=== PATIENT | female | born 1930 | race Caucasian/White ===

== ENCOUNTER 2016-09-08 00:09 | Emergency (ER) | payer OTHER ==
[2016-09-08 00:21] VITALS: BP 124/63; BMI 32.2
--- NOTE | 2016-09-08 00:39 | RAD ---
EXAM: Left ankle x-ray INDICATION: Pain COMPARISION: No priors for comparison TECHNIQUE: AP, lateral, and oblique, three views FINDINGS: No acute fracture or dislocation. There is diffuse osteopenia. There is no evidence of an intraosseo us lesion. The joint spaces are preserved. No joint effusion is identified. The surrounding soft tis sues appear diffusely edematous. There is no evidence of a radiopaque foreign body. IMPRESSION: Advanced diffuse osteopenia and soft tissue swelling. Reported By:
--- NOTE | 2016-09-08 00:40 | DR.GENAD ---
HPI - PCP Primary Care Physician: NELLY - Complaint/Symptoms Chief Complaint:: LEFT ANKLE PAIN AFTER FALL FROM CHAIR OVER ON SITTING ON COUCH - Nurses notes reviewed Nurses Notes Review: Yes - Source History Provided: Patient, EMS - Mode of Arrival Mode of Arrival: Stretcher - Timing Onset of Chief Complaint: 09/07/16 Came on: Suddenly - Duration Duration: Constant How lon Duration: Minutes - Location Location: left ankle - Severity Severity: Moderate - Modifying Factors Worsens:: movement PMH - PMH Past Medical History: Yes Past Medical History: Arthritis, CHF, CVA, GERD, Hypertension Past Surgical History: Yes Surgical History: Abdominal Surgery, Cholecystectomy, Hysterectomy, Joint Replacement, Other - Family History History of Family Medical Conditions: Yes Family Medical History: Cancer, Heart Failure, Hypertension - Social History Does patient currently use any type of tobacco product: No Have you used tobacco products in the last 12 months: No Type of Tobacco Use: None Does any household member use tobacco: No Alcohol Use: None Do you use any recreational Drugs:: No Lives With: Spouse Lives Where: Home - infectious screening Have you traveled outside the country in the last 6 months?: No Isolation: Standard ROS - Review of Systems Constitutional: No Symptoms Reported Eyes: No Symptoms Reported ENTM: No Symptoms Reported Respiratoy: No Symptoms Reported Cardiovascular: No Symptoms Reported Gastrointestinal/Abdominal: No Symptoms Reported Genitourinary: No Symptoms Reported Neurological: No Symptoms Reported Musculoskeletal: Ankle (left ankle pain) Integumentary: No Symptoms Reported Hematologic/Lymphatic: No Symptoms Reported Endocrine: No Symptoms Reported Psychiatric: Depression PE - Vital Signs Vitals: Temperature 97.8 F Pulse Rate 71 Respiratory Rate 20 Blood Pressure [Right Arm] 125/60 Blood Pressure [Left Arm] 111/67 Blood Pressure 124/63 O2 Sat by Pulse Oximetry 98 - General Limitations: No Limitations General Appearance: Alert, In No Apparent Distress - Head Head Exam: Normal Inspection - Eyes Eye exam: Normal Appearance, EOMI. negative: Scleral Icterus, Conjunctival Injection - ENT External Ear Exam: Normal External Inspection - Neck Neck Exam: Normal Inspection, Full ROM, Trachea Midline - Respiratory Respiratory Exam: negative: Accessory Muscle Use, Respiratory Distress - Abdominal Exam Abdominal Exam: Other (obese) - Extremities Extremities Exam: Tenderness (left ankle), Edema (left leg chronic). negative: Normal Inspection - Neurologic Neurological Exam: Alert, Oriented X3, CN II-XII Intact - Psychiatric Psychiatric Exam: Depressed - Skin Skin Exam: Intact, Normal Color ROR - XRAY XRAY Interpreted by: Self XRAY Findings: Left ankle: no fx - Diagnosis Discharge Problem: Sprain of ankle, left Qualifiers: Encounter type: initial encounter Involved ligament of ankle: unspecified ligament Qualified Code(s): S93.402A - Sprain of unspecified ligament of left ankle, initial encounter - Discharge Plan Condition: Stable Prescriptions: Ibuprofen [Motrin Tab 800 mg] 800 mg PO Q8H PRN #30 tab PRN Reason: Pain/Inflammation - Follow ups/Referrals Follow ups/Referrals: NFD,None [Primary Care Provider] - 3 days - Instructions
[2016-09-08] MEDS ORDERED: NORCO 5/325 MG TAB PO ONE (00:43)
[2016-09-08] MEDS ORDERED: NORCO 5/325 MG TAB ONE (00:48)
== END 2016-09-08 00:59 | disposition home or self-care (01) ==
LOC: ER 00:09
DX: S93.492A Sprain of other ligament of left ankle, initial encounter (principal); Y33.XXXA Other specified events, undetermined intent, initial encounter; Y92.89 Other specified places as the place of occurrence of the external cause
CPT/HCPCS: 29540; 73610; 99282; 99283

== ENCOUNTER → 2016-09-28 | Outpatient (CLI) | payer OTHER ==
[2016-09-08 00:21] VITALS: BP 124/63
--- NOTE | 2016-09-28 11:32 | VAS ---
HISTORY: Bilateral lower extremity edema Study: Bilateral lower extremity venous Doppler Comparison: None TECHNIQUE: Multiple trammell scale and color flow Doppler images of the deep venous system were obtaine d of the right and left lower extremity. FINDINGS: The deep venous system of the right and left lower extremities were evaluated from the level of the common femoral vein through the popliteal vein. Normal color flow and augmentation can be observed. In addition, normal compression is seen throughout the deep venous system. IMPRESSION: 1. Negative for DVT. Reported By:
== END ==
LOC: RAD 09:55
PROVIDERS: ATTEND Internal Medicine
DX: R60.1 Generalized edema (principal); M79.604 Pain in right leg; M79.605 Pain in left leg
CPT/HCPCS: 93970

== ENCOUNTER 2016-10-15 11:33 | Inpatient (IN) | payer OTHER ==
[2016-10-15] MEDS ORDERED: PHARMACY CONSULT - DOSE _____ XX SCH (12:30)
[2016-10-15 13:16] LABS: BASOPHILS # (AUTO) 0.1 X10^3/uL (0.0-0.1); EOSINOPHILS # (AUTO) 0.1 x10^3/uL (0.0-0.2)
[2016-10-15 13:19] LABS: ALANINE AMINOTRANSFERASE 17 Units/L (12-78); ALBUMIN 3.3 g/dL (3.4-5.0); ALKALINE PHOSPHATASE 91 Units/L (46-116); ASPARTATE AMINO TRANSFERASE 16 Units/L (15-37); BLOOD UREA NITROGEN 18 mg/dL (7-18); CALCIUM 8.5 mg/dL (8.5-10.1); CARBON DIOXIDE 28.1 mmol/L (21-32); CHLORIDE 99 mmol/L (98-107); COR CA(FOR HYPOALB) 9.1 mg/dL (8.5-10.1); CREATININE 0.85 mg/dL (0.55-1.02); GLUCOSE 97 mg/dL (65-99); SODIUM 136 mmol/L (136-145); TOTAL PROTEIN 7.3 g/dL (6.4-8.2); eGFR BLACK RACES > 60 (>60); eGFR NON BLACK RACES > 60 (>60)
[2016-10-15 14:19] LABS: BASOPHILS % (AUTO) 0.6 % (0.2-1.0); EOSINOPHILS % (AUTO) 0.8 % (0.9-2.9); HEMATOCRIT 35.5 % (36.0-47.0); HEMOGLOBIN 11.9 g/dL (12.0-16.0); LYMPHOCYTES # (AUTO) 2.2 X10^3/uL (1.3-2.9); LYMPHOCYTES % (AUTO) 17.9 % (21.0-51.0); MEAN CORPUSCULAR HEMOGLOBIN 31.3 pg (27.0-34.0); MEAN CORPUSCULAR HGB CONC 33.5 g/dL (33.0-35.0); MEAN CORPUSCULAR VOLUME 93.3 fL (80.0-100.0); MONOCYTES # (AUTO) 1.1 x10^3/uL (0.3-0.8); MONOCYTES % (AUTO) 8.8 % (0.0-13.0); NEUTROPHILS # (AUTO) 8.9 x10^3/uL (2.2-4.8); NEUTROPHILS % (AUTO) 71.9 % (42.0-75.0); PLATELET COUNT 139 X10^3/uL (150.0-450.0); RED CELL DISTRIBUTION WIDTH 12.3 % (11.6-16.5); WHITE BLOOD COUNT 12.4 X10^3/uL (3.6-10.0)
[2016-10-15 14:22] LABS: PLATELET MORPHOLOGY COMMENT NORMAL (NORMAL)
[2016-10-15] MEDS ORDERED: FIORICET TAB PO SCH (15:00)
[2016-10-15 15:08] VITALS: BMI 29.1
[2016-10-15] MEDS: NS 1000 ML 1,000 ML IV SCH (15:21)
[2016-10-15] MEDS: VANCOMYCIN 1 GM PREMIX (ADDVANTAGE) 250 ML IV SCH (15:21)
[2016-10-15] MEDS ORDERED: DILAUDID PO ONE (20:38)
--- NOTE | 2016-10-15 20:40 | DR.UPDATE ---
H&P Update History and Physical Update: WAS SEEN IN OUR OFFICE TODAY. A H&P WAS COMPLETED PRIOR TO ADMISSION. PATIENT HAS BEEN SEEN AND EXAMINED WITH NO CHANGES NOTED. Changes noted: NO Yes with the following:
[2016-10-15] MEDS: DILAUDID PO PRN (20:44)
[2016-10-15] MEDS ORDERED: ROBITUSSIN DM PO PRN (22:08)
[2016-10-15] MEDS: ROBITUSSIN DM PO PRN (23:05)
[2016-10-16] MEDS ORDERED: FIORICET TAB PO ONE (00:46)
[2016-10-16] MEDS: NS 1000 ML 1,000 ML IV SCH (01:35)
[2016-10-16] MEDS ORDERED: DILAUDID PO ONE ×4 (02:43→20:33)
[2016-10-16] MEDS: DILAUDID PO PRN ×2 (02:44→09:14)
[2016-10-16 06:20] LABS: BASOPHILS % (AUTO) 0.5 % (0.2-1.0); EOSINOPHILS # (AUTO) 0.1 x10^3/uL (0.0-0.2); EOSINOPHILS % (AUTO) 0.9 % (0.9-2.9); HEMATOCRIT 29.7 % (36.0-47.0); HEMOGLOBIN 10.3 g/dL (12.0-16.0); LYMPHOCYTES # (AUTO) 1.9 X10^3/uL (1.3-2.9); LYMPHOCYTES % (AUTO) 20.5 % (21.0-51.0); MEAN CORPUSCULAR HEMOGLOBIN 31.8 pg (27.0-34.0); MEAN CORPUSCULAR HGB CONC 34.7 g/dL (33.0-35.0); MEAN CORPUSCULAR VOLUME 91.7 fL (80.0-100.0); MEAN PLATELET VOLUME 8.8 fL (7.4-11.0); MONOCYTES # (AUTO) 0.8 x10^3/uL (0.3-0.8); MONOCYTES % (AUTO) 9.1 % (0.0-13.0); NEUTROPHILS # (AUTO) 6.3 x10^3/uL (2.2-4.8); PLATELET COUNT 179 X10^3/uL (150.0-450.0); RED BLOOD COUNT 3.24 X10^6/uL (3.5-5.4); RED CELL DISTRIBUTION WIDTH 12.3 % (11.6-16.5); WHITE BLOOD COUNT 9.2 X10^3/uL (3.6-10.0)
[2016-10-16 06:25] LABS: ALANINE AMINOTRANSFERASE 14 Units/L (12-78); ALBUMIN 2.6 g/dL (3.4-5.0); ALKALINE PHOSPHATASE 77 Units/L (46-116); ASPARTATE AMINO TRANSFERASE 14 Units/L (15-37); BLOOD UREA NITROGEN 13 mg/dL (7-18); CALCIUM 7.9 mg/dL (8.5-10.1); CARBON DIOXIDE 25.8 mmol/L (21-32); CHLORIDE 100 mmol/L (98-107); COR NA(FOR HYPERGLY) 133 mmol/L (136-145); CREATININE 0.59 mg/dL (0.55-1.02); GLUCOSE 114 mg/dL (65-99); SODIUM 133 mmol/L (136-145); TOTAL PROTEIN 6.1 g/dL (6.4-8.2); eGFR BLACK RACES > 60 (>60); eGFR NON BLACK RACES > 60 (>60)
[2016-10-16] MEDS: VANCOMYCIN 1 GM PREMIX (ADDVANTAGE) 250 ML IV SCH ×2 (09:14→20:47)
[2016-10-16] MEDS ORDERED: PATIENT'S HOME MEDICATION (Omeprazole [Omeprazole] 40 MG) PO SCH (09:15)
[2016-10-16] MEDS ORDERED: PATIENT'S HOME MEDICATION (Benazepril Hcl [Lotensin] 20 MG) PO SCH (09:15)
[2016-10-16] MEDS ORDERED: PATIENT'S HOME MEDICATION (Potassium Chloride [Klor-Con 10] 10 MEQ) PO SCH (09:15)
[2016-10-16] MEDS ORDERED: [UNRECOGNIZED DRUG - OTHER] PO SCH (09:30)
[2016-10-16] MEDS ORDERED: ACETAMINOPHEN PO SCH (09:30)
[2016-10-16] MEDS ORDERED: BUTALBITAL PO SCH (09:30)
[2016-10-16] MEDS ORDERED: [UNRECOGNIZED DRUG - REMARK] PO SCH (09:30)
[2016-10-16] MEDS ORDERED: NORVASC TAB 2.5 MG ONE (11:21)
[2016-10-16] MEDS: MICRO K EXTEN CAP 10 MEQ PO SCH ×2 (11:27→20:49)
[2016-10-16] MEDS: LOTENSIN TAB 10 MG PO SCH (11:27)
[2016-10-16] MEDS: LASIX PO SCH (11:27)
[2016-10-16] MEDS: TOPROL XL PO SCH ×2 (11:28→20:50)
[2016-10-16] MEDS: NORVASC TAB 2.5 MG PO SCH (11:28)
[2016-10-16] MEDS: PriLOSEC PO SCH (11:30)
[2016-10-16] MEDS: REGLAN TAB 10 MG PO SCH ×4 (11:30→20:50)
[2016-10-16] MEDS: FIORICET TAB PO SCH ×3 (11:33→21:01)
[2016-10-16] MEDS: VOLTAREN 1 % GEL MULTI DOSE TUBE TOP SCH ×3 (12:19→21:01)
[2016-10-16] MEDS: DILAUDID PO SCH ×3 (12:19→21:01)
[2016-10-16] MEDS: ROBITUSSIN DM PO PRN (20:49)
[2016-10-16] MEDS: ANTIVERT TAB 25 MG PO SCH (20:50)
[2016-10-17] MEDS ORDERED: DILAUDID PO ONE ×5 (04:11→21:31)
[2016-10-17] MEDS: FIORICET TAB PO SCH ×5 (04:14→21:23)
[2016-10-17] MEDS: DILAUDID PO SCH ×5 (04:14→21:32)
[2016-10-17] MEDS: NS 1000 ML 1,000 ML IV SCH ×2 (04:15→17:00)
[2016-10-17 05:30] LABS: BASOPHILS % (AUTO) 0.5 % (0.2-1.0); EOSINOPHILS # (AUTO) 0.1 x10^3/uL (0.0-0.2); EOSINOPHILS % (AUTO) 1.7 % (0.9-2.9); HEMATOCRIT 31.3 % (36.0-47.0); HEMOGLOBIN 10.7 g/dL (12.0-16.0); LYMPHOCYTES # (AUTO) 1.9 X10^3/uL (1.3-2.9); LYMPHOCYTES % (AUTO) 24.2 % (21.0-51.0); MEAN CORPUSCULAR HEMOGLOBIN 31.8 pg (27.0-34.0); MEAN CORPUSCULAR HGB CONC 34.3 g/dL (33.0-35.0); MEAN CORPUSCULAR VOLUME 92.6 fL (80.0-100.0); MEAN PLATELET VOLUME 8.1 fL (7.4-11.0); MONOCYTES # (AUTO) 0.8 x10^3/uL (0.3-0.8); MONOCYTES % (AUTO) 10.1 % (0.0-13.0); NEUTROPHILS # (AUTO) 5.1 x10^3/uL (2.2-4.8); NEUTROPHILS % (AUTO) 63.5 % (42.0-75.0); PLATELET COUNT 186 X10^3/uL (150.0-450.0); RED BLOOD COUNT 3.38 X10^6/uL (3.5-5.4); RED CELL DISTRIBUTION WIDTH 12.4 % (11.6-16.5)
[2016-10-17 05:31] LABS: ALANINE AMINOTRANSFERASE 13 Units/L (12-78); ALBUMIN 2.6 g/dL (3.4-5.0); ALKALINE PHOSPHATASE 71 Units/L (46-116); ASPARTATE AMINO TRANSFERASE 13 Units/L (15-37); BLOOD UREA NITROGEN 10 mg/dL (7-18); CALCIUM 7.9 mg/dL (8.5-10.1); CARBON DIOXIDE 26.1 mmol/L (21-32); CHLORIDE 103 mmol/L (98-107); CREATININE 0.72 mg/dL (0.55-1.02); GLUCOSE 92 mg/dL (65-99); SODIUM 136 mmol/L (136-145); TOTAL PROTEIN 6.2 g/dL (6.4-8.2); eGFR BLACK RACES > 60 (>60); eGFR NON BLACK RACES > 60 (>60)
[2016-10-17] MEDS: VOLTAREN 1 % GEL MULTI DOSE TUBE TOP SCH ×3 (05:40→21:27)
[2016-10-17] MEDS ORDERED: NORVASC TAB 2.5 MG ONE (09:45)
[2016-10-17] MEDS: LASIX PO SCH (10:02)
[2016-10-17] MEDS: LOTENSIN TAB 10 MG PO SCH (10:02)
[2016-10-17] MEDS: MICRO K EXTEN CAP 10 MEQ PO SCH ×2 (10:02→21:24)
[2016-10-17] MEDS: PriLOSEC PO SCH (10:02)
[2016-10-17] MEDS: NORVASC TAB 2.5 MG PO SCH (10:03)
[2016-10-17] MEDS: REGLAN TAB 10 MG PO SCH ×4 (10:03→21:24)
[2016-10-17] MEDS: VANCOMYCIN 1 GM PREMIX (ADDVANTAGE) 250 ML IV SCH ×2 (10:03→21:22)
[2016-10-17] MEDS: TOPROL XL PO SCH ×2 (10:03→21:22)
[2016-10-17 10:29] LABS: CREATININE 0.83 mg/dL (0.55-1.02); VANCOMYCIN,TROUGH 15.5 ug/mL (15-20)
[2016-10-17] MEDS: ANTIVERT TAB 25 MG PO SCH (21:24)
[2016-10-18] MEDS ORDERED: DILAUDID PO ONE ×4 (02:13→22:19)
[2016-10-18] MEDS: DILAUDID PO SCH ×4 (03:14→22:22)
[2016-10-18] MEDS: FIORICET TAB PO SCH ×4 (03:15→22:06)
[2016-10-18 05:09] LABS: BASOPHILS % (AUTO) 0.6 % (0.2-1.0); EOSINOPHILS # (AUTO) 0.2 x10^3/uL (0.0-0.2); EOSINOPHILS % (AUTO) 2.7 % (0.9-2.9); HEMATOCRIT 31.6 % (36.0-47.0); HEMOGLOBIN 10.7 g/dL (12.0-16.0); LYMPHOCYTES # (AUTO) 2.2 X10^3/uL (1.3-2.9); LYMPHOCYTES % (AUTO) 28.4 % (21.0-51.0); MEAN CORPUSCULAR HEMOGLOBIN 31.7 pg (27.0-34.0); MEAN CORPUSCULAR HGB CONC 33.8 g/dL (33.0-35.0); MEAN CORPUSCULAR VOLUME 93.7 fL (80.0-100.0); MEAN PLATELET VOLUME 8.4 fL (7.4-11.0); MONOCYTES # (AUTO) 0.9 x10^3/uL (0.3-0.8); MONOCYTES % (AUTO) 11.6 % (0.0-13.0); NEUTROPHILS # (AUTO) 4.4 x10^3/uL (2.2-4.8); NEUTROPHILS % (AUTO) 56.7 % (42.0-75.0); PLATELET COUNT 197 X10^3/uL (150.0-450.0); RED BLOOD COUNT 3.37 X10^6/uL (3.5-5.4); RED CELL DISTRIBUTION WIDTH 12.2 % (11.6-16.5); WHITE BLOOD COUNT 7.7 X10^3/uL (3.6-10.0)
[2016-10-18 05:11] LABS: ALANINE AMINOTRANSFERASE 13 Units/L (12-78); ALBUMIN 2.6 g/dL (3.4-5.0); ALKALINE PHOSPHATASE 73 Units/L (46-116); ASPARTATE AMINO TRANSFERASE 12 Units/L (15-37); BLOOD UREA NITROGEN 11 mg/dL (7-18); CALCIUM 7.7 mg/dL (8.5-10.1); CARBON DIOXIDE 25.8 mmol/L (21-32); CHLORIDE 104 mmol/L (98-107); COR CA(FOR HYPOALB) 8.8 mg/dL (8.5-10.1); CREATININE 0.73 mg/dL (0.55-1.02); GLUCOSE 91 mg/dL (65-99); SODIUM 138 mmol/L (136-145); TOTAL PROTEIN 6.3 g/dL (6.4-8.2); eGFR BLACK RACES > 60 (>60); eGFR NON BLACK RACES > 60 (>60)
[2016-10-18] MEDS: VOLTAREN 1 % GEL MULTI DOSE TUBE TOP SCH ×3 (06:07→22:07)
[2016-10-18] MEDS ORDERED: NORVASC TAB 2.5 MG ONE (08:59)
[2016-10-18] MEDS: LOTENSIN TAB 10 MG PO SCH (09:04)
[2016-10-18] MEDS: LASIX PO SCH (09:08)
[2016-10-18] MEDS: NORVASC TAB 2.5 MG PO SCH (09:09)
[2016-10-18] MEDS: VANCOMYCIN 1 GM PREMIX (ADDVANTAGE) 250 ML IV SCH (09:09)
[2016-10-18] MEDS: MICRO K EXTEN CAP 10 MEQ PO SCH ×2 (09:10→22:08)
[2016-10-18] MEDS: PriLOSEC PO SCH (09:10)
[2016-10-18] MEDS: TOPROL XL PO SCH ×2 (09:10→22:09)
[2016-10-18] MEDS: REGLAN TAB 10 MG PO SCH ×4 (09:10→22:08)
--- NOTE | 2016-10-18 11:05 | PCM.PROG ---
Progress Note - Progress Note for Day of Date: 10/18/16 - Subjective Subjective: IS ALERT AND ORIENTED, SITTING UP IN CHAIR ON MORNING ROUNDS. PATIENT'S DAUGHTER IS AT BEDSIDE. SHE COMPLAINS OF PAIN TO THE LEFT ELBOW. DRESSING NOTED TO LEFT ELBOW DRY AND INTACT. REDNESS NOTED TO AREA SURROUNDING DRESSING. VITALS THIS AM ARE 98.1-65-20-97%-119/67. CBC WNL EXCEPT RBC 3.37, HGB 10.7, HCT 31.6. CMP WNL EXCEPT CALCIUM 7.7, AST 12, TOTAL PROTEIN 6.3, ALBUMIN 2.6. WOUND CULTURE REPORTED MRSA THAT IS SENSITIVE TO THE VANCOMYCIN THAT SHE IS ON. SHE WILL NEED TWO WEEKS OF IV ANTIBIOTICS TO TREAT. CASE MANAGEMENT WILL CHECK TO SEE IF PATIENT CAN RECEIVE ABX AT HOME. WE WILL CONSULT FOR POSSIBLE I&D OF WOUND. WE WILL START GENTAMICIN CREAM BID , RECHECK LABS, AND FOLLOW UP WITH PATIENT IN AM. - Past Medical Family Social History Past Med/Fam/Surg Hx: No changes since H&P Allergies: Allergies morphine Allergy (Verified 10/15/16 19:44) - Review of Systems ROS: No change since H&P - Vital Signs and I&O's Vital Signs: Temperature 98.6 F Pulse Rate [Right Brachial] 80 Respiratory Rate 20 Blood Pressure [Right Arm] 127/64 Blood Pressure [Left Arm] 119/67 Blood Pressure 124/63 O2 Sat by Pulse Oximetry 95 Intake and Output: Intake & Output 10/15/16 10/16/16 10/17/16 10/18/16 11:59 11:59 11:59 11:59 Intake Total 1070 1997 1710 Balance 1070 1997 1710 - Physical Exam Oriented: Normal. negative: Time, Person, Place, Not Oriented, Unable to test, Other Eyes: Normal Ear: Normal. negative: Right, Left, Swelling, Ecchymosis, Hemotypanum, Abrasion , Laceration Nose: Normal. negative: Injected, Discharge, Blood, Other Throat: Normal. negative: Tonsillar Hypertrophy, Red, Exudate, Dry, Other Respiratory: Normal. negative: Right, Left, Generalized, Superior, Inferior, Diminished, Wheezes, Rales, Rhonchi, OTHER Cardiovascular: Normal. negative: Tachycardia, Bradycardia, Irregular, S3, S4, Systolic, Diastolic, Murmur, Edema, Other : Normal. negative: Dysuria, Hematuria, Frequency, Discharge, Testicular Pain , Bleeding, , Other Auscultation: Bowel Sounds: Normal. negative: Bruit, Absent, Increased, Decreased, High Pitched, Other Palpation: Normal. negative: Spleen Enlarged, Liver Enlarged, Mass Pulsatile, Other Tenderness: Normal. negative: Diffuse, RUQ, RLQ, LUQ, LLQ, Epigastric, Periumbilical, Suprapubic, Mild, Moderate, Severe, Rebound, Guarding, Rigidity, Other Skin: Red, Tender, Wound (LEFT ELBOW ) Musculoskeletal: Left, Elbow, Tender Psychiatric: Normal Mood Description: Calm Affect: Normal Speech Pattern: Clear, Appropriate - Laboratory and Diagnostics Result Diagrams: 10/18/16 03:40 10/18/16 03:40 Labs: 10/15/16 15:23 Elbow - Left Gram Stain - Final 10/15/16 15:23 Elbow - Left Wound Culture - Final Methicillin Resis Staph Aureus Laboratory WBC 7.7 X10^3/uL (3.6-10.0) 10/18/16 03:40 RBC 3.37 X10^6/uL (3.5-5.4) L 10/18/16 03:40 Hgb 10.7 g/dL (12.0-16.0) L 10/18/16 03:40 Hct 31.6 % (36.0-47.0) L 10/18/16 03:40 MCV 93.7 fL (80.0-100.0) 10/18/16 03:40 MCH 31.7 pg (27.0-34.0) 10/18/16 03:40 MCHC 33.8 g/dL (33.0-35.0) 10/18/16 03:40 RDW 12.2 % (11.6-16.5) 10/18/16 03:40 Plt Count 197 X10^3/uL (150.0-450.0) 10/18/16 03:40 Plt Count Comment Decreased (ADEQUATE) A 10/15/16 12:50 MPV 8.4 fL (7.4-11.0) 10/18/16 03:40 Neut % 56.7 % (42.0-75.0) 10/18/16 03:40 Lymph % 28.4 % (21.0-51.0) 10/18/16 03:40 [place] % 11.6 % (0.0-13.0) 10/18/16 03:40 Eos % 2.7 % (0.9-2.9) 10/18/16 03:40 Baso % 0.6 % (0.2-1.0) 10/18/16 03:40 Neut # 4.4 x10^3/uL (2.2-4.8) 10/18/16 03:40 Lymph # 2.2 X10^3/uL (1.3-2.9) 10/18/16 03:40 [place] # 0.9 x10^3/uL (0.3-0.8) H 10/18/16 03:40 Eos # 0.2 x10^3/uL (0.0-0.2) 10/18/16 03:40 Baso # 0.0 X10^3/uL (0.0-0.1) 10/18/16 03:40 Absolute Nucleated RBC 0.0 /100WBC 10/18/16 03:40 Plt Morphology Comment Normal (NORMAL) 10/15/16 12:50 RBC Morphology Normal (NORMAL) 10/15/16 12:50 Sodium 138 mmol/L (136-145) 10/18/16 03:40 Corrected Sodium TNP 10/18/16 03:40 Potassium 3.7 mmol/L (3.5-5.1) 10/18/16 03:40 Chloride 104 mmol/L (98-107) 10/18/16 03:40 Carbon Dioxide 25.8 mmol/L (21-32) 10/18/16 03:40 BUN 11 mg/dL (7-18) 10/18/16 03:40 Creatinine 0.73 mg/dL (0.55-1.02) 10/18/16 03:40 Est GFR (MDRD) Af Amer > 60 (>60) 10/18/16 03:40 Est GFR (MDRD) Non-Af > 60 (>60) 10/18/16 03:40 Glucose 91 mg/dL (65-99) 10/18/16 03:40 Calcium 7.7 mg/dL (8.5-10.1) L 10/18/16 03:40 Corrected Calcium 8.8 mg/dL (8.5-10.1) 10/18/16 03:40 Total Bilirubin 0.30 mg/dL (0.2-1.0) 10/18/16 03:40 AST 12 Units/L (15-37) L 10/18/16 03:40 ALT 13 Units/L (12-78) 10/18/16 03:40 Alkaline Phosphatase 73 Units/L (46-116) 10/18/16 03:40 Total Protein 6.3 g/dL (6.4-8.2) L 10/18/16 03:40 Albumin 2.6 g/dL (3.4-5.0) L 10/18/16 03:40 Globulin 3.7 g/dL (2.5-4.5) 10/18/16 03:40 Albumin/Globulin Ratio 0.7 Ratio (1.1-2.1) L 10/18/16 03:40 Vancomycin Trough 15.5 ug/mL (15-20) 10/17/16 10:01 - Plan (1) Cellulitis Status: Acute Qualifiers: Site of cellulitis: extremity Site of cellulitis of extremity: upper extremity Site of cellulitis of trunk: S Laterality: left Qualified Code(s ): L03.114 - Cellulitis of left upper limb Plan: CONTINUE VANCOMYCIN IV, CONTINUE TO MONITOR (2) MRSA (methicillin resistant Staphylococcus aureus) infection Status: Acute Plan: CONTINUE VANCOMYCIN IV, CONTINUE TO MONITOR (3) GERD (gastroesophageal reflux disease) Status: Chronic Qualifiers: Esophagitis presence: esophagitis presence not specified Qualified Code(s) : K21.9 - Gastro-esophageal reflux disease without esophagitis Plan: CONTINUE REGLAN 10MG PO QID, CONTINUE PRILOSEC 40MG DAILY, CONTINUE TO MONITOR (4) Hypertension Status: Chronic Qualifiers: Hypertension type: essential hypertension Qualified Code(s): I10 - Essential (primary) hypertension Plan: CONTINUE NORVASC 2.5MG DAILY, CONTINUE LOTENSIN 20MG DAILY, CONTINUE TOPROL XL 50MG BID, CONTINUE TO MONITOR
[2016-10-18] MEDS: NS 1000 ML 1,000 ML IV SCH ×2 (14:39→14:40)
[2016-10-18] MEDS: GENTAMICIN TOPICAL CRM TOP SCH ×2 (14:39→22:07)
[2016-10-18 20:42] LABS: CREATININE 0.87 mg/dL (0.55-1.02)
[2016-10-18 20:44] LABS: VANCOMYCIN,TROUGH 27.3 ug/mL (15-20)
[2016-10-18] MEDS: ANTIVERT TAB 25 MG PO SCH (22:07)
[2016-10-19] MEDS ORDERED: DILAUDID PO ONE ×4 (04:19→22:39)
[2016-10-19] MEDS: FIORICET TAB PO SCH ×4 (04:27→22:36)
[2016-10-19] MEDS: DILAUDID PO SCH ×4 (04:29→22:41)
[2016-10-19 05:22] LABS: BASOPHILS # (AUTO) 0.1 X10^3/uL (0.0-0.1); BASOPHILS % (AUTO) 0.7 % (0.2-1.0); EOSINOPHILS # (AUTO) 0.2 x10^3/uL (0.0-0.2); EOSINOPHILS % (AUTO) 2.9 % (0.9-2.9); HEMATOCRIT 31.3 % (36.0-47.0); HEMOGLOBIN 10.6 g/dL (12.0-16.0); LYMPHOCYTES % (AUTO) 25.8 % (21.0-51.0); MEAN CORPUSCULAR HEMOGLOBIN 31.6 pg (27.0-34.0); MEAN CORPUSCULAR VOLUME 93.1 fL (80.0-100.0); MEAN PLATELET VOLUME 8.3 fL (7.4-11.0); MONOCYTES # (AUTO) 0.9 x10^3/uL (0.3-0.8); MONOCYTES % (AUTO) 11.8 % (0.0-13.0); NEUTROPHILS # (AUTO) 4.5 x10^3/uL (2.2-4.8); NEUTROPHILS % (AUTO) 58.8 % (42.0-75.0); PLATELET COUNT 196 X10^3/uL (150.0-450.0); RED BLOOD COUNT 3.36 X10^6/uL (3.5-5.4); RED CELL DISTRIBUTION WIDTH 12.5 % (11.6-16.5); WHITE BLOOD COUNT 7.6 X10^3/uL (3.6-10.0)
[2016-10-19 05:28] LABS: ALANINE AMINOTRANSFERASE 14 Units/L (12-78); ALBUMIN 2.5 g/dL (3.4-5.0); ALKALINE PHOSPHATASE 73 Units/L (46-116); ASPARTATE AMINO TRANSFERASE 13 Units/L (15-37); BLOOD UREA NITROGEN 12 mg/dL (7-18); CALCIUM 7.7 mg/dL (8.5-10.1); CARBON DIOXIDE 25.8 mmol/L (21-32); CHLORIDE 106 mmol/L (98-107); COR CA(FOR HYPOALB) 8.9 mg/dL (8.5-10.1); CREATININE 0.67 mg/dL (0.55-1.02); GLUCOSE 94 mg/dL (65-99); SODIUM 141 mmol/L (136-145); TOTAL PROTEIN 6.1 g/dL (6.4-8.2); eGFR BLACK RACES > 60 (>60); eGFR NON BLACK RACES > 60 (>60)
[2016-10-19 05:40] LABS: CREATININE 0.75 mg/dL (0.55-1.02)
[2016-10-19] MEDS ORDERED: PHARMACY CONSULT - VANCOMYCIN XX SCH (06:00)
[2016-10-19] MEDS: VOLTAREN 1 % GEL MULTI DOSE TUBE TOP SCH ×3 (06:19→22:34)
[2016-10-19] MEDS ORDERED: NORVASC TAB 2.5 MG ONE (08:50)
[2016-10-19] MEDS: TOPROL XL PO SCH ×2 (09:47→22:36)
[2016-10-19] MEDS: LASIX PO SCH (09:47)
[2016-10-19] MEDS: REGLAN TAB 10 MG PO SCH ×4 (09:49→22:36)
[2016-10-19] MEDS: MICRO K EXTEN CAP 10 MEQ PO SCH ×2 (09:49→22:35)
[2016-10-19] MEDS: PriLOSEC PO SCH (09:49)
[2016-10-19] MEDS: LOTENSIN TAB 10 MG PO SCH (09:49)
[2016-10-19] MEDS: GENTAMICIN TOPICAL CRM TOP SCH ×2 (09:50→22:34)
[2016-10-19] MEDS: NORVASC TAB 2.5 MG PO SCH (09:50)
--- NOTE | 2016-10-19 10:28 | PCM.PROG ---
Progress Note - Progress Note for Day of Date: 10/19/16 - Subjective Subjective: IS SITTING UP IN CHAIR ON MORNING ROUNDS. SHE APPEAR TO BE ASLEEP, BUT IS AROUSABLE TO VERBAL STIMULI. PATIENT'S DAUGHTER IS AT BEDSIDE. DRESSING NOTED TO LEFT ELBOW DRY AND INTACT. REDNESS NOTED TO AREA SURROUNDING DRESSING. VITALS THIS AM ARE 98.3-71-26-95%-125/60. CBC WNL EXCEPT RBC 3.36, HGB 10.6, HCT 31.3. CMP WNL EXCEPT CALCIUM 7.7, AST 13, TOTAL PROTEIN 6.1, ALBUMIN 2.5. CASE MANAGEMENT CHECKING TO SEE IF PATIENT CAN RECEIVE ABX AT HOME. WE ARE AWAITING CONSULT WITH FOR POSSIBLE I&D OF WOUND. WE WILL CONTINUE WITH CURRENT PLAN OF CARE, RECHECK LABS, AND FOLLOW UP WITH PATIENT IN AM. - Past Medical Family Social History Past Med/Fam/Surg Hx: No changes since H&P Allergies: Allergies morphine Allergy (Verified 10/15/16 19:44) - Review of Systems ROS: No change since H&P - Vital Signs and I&O's Vital Signs: Temperature 98.3 F Pulse Rate [Right Brachial] 71 Respiratory Rate 26 Blood Pressure [Right Arm] 125/60 Blood Pressure [Left Arm] 119/67 Blood Pressure 124/63 O2 Sat by Pulse Oximetry 95 Intake and Output: Intake & Output 10/16/16 10/17/16 10/18/16 10/19/16 11:59 11:59 11:59 11:59 Intake Total 1070 1997 1710 660 Balance 1070 1997 1710 660 - Physical Exam Oriented: Normal. negative: Time, Person, Place, Not Oriented, Unable to test, Other Eyes: Normal Ear: Normal. negative: Right, Left, Swelling, Ecchymosis, Hemotypanum, Abrasion , Laceration Nose: Normal. negative: Injected, Discharge, Blood, Other Throat: Normal. negative: Tonsillar Hypertrophy, Red, Exudate, Dry, Other Respiratory: Normal. negative: Right, Left, Generalized, Superior, Inferior, Diminished, Wheezes, Rales, Rhonchi, OTHER Cardiovascular: Normal. negative: Tachycardia, Bradycardia, Irregular, S3, S4, Systolic, Diastolic, Murmur, Edema, Other : Normal. negative: Dysuria, Hematuria, Frequency, Discharge, Testicular Pain , Bleeding, , Other Auscultation: Bowel Sounds: Normal. negative: Bruit, Absent, Increased, Decreased, High Pitched, Other Palpation: Normal Tenderness: Normal. negative: Diffuse, RUQ, RLQ, LUQ, LLQ, Epigastric, Periumbilical, Suprapubic, Mild, Moderate, Severe, Rebound, Guarding, Rigidity, Other Skin: Red, Tender, Wound (LEFT ELBOW ). negative: Normal, Decreased Turgur, Rash, Papular, Macular, Maculopapular, Vesicular, Pustular, Petechial, Hot, Diaphoresis, Bruising, Ecchymosis, Other Musculoskeletal: Left, Elbow, Tender. negative: Normal, Right, Shoulder, Clavicle, Arm, Forearm, Wrist, Hand, Hip, Thigh, Knee, Leg, Ankle, Foot, Back: Thoracic, Back:Lumbar, Back:Midline, Back:Paraspinous, Pelvis, Swelling, Deformity, Pulse Deficit, Motor Deficit, Sensory Deficit, Instability, Crepitance Psychiatric: Normal. negative: Anxiety, Depression, Agitation, Other Mood Description: Calm Affect: Normal. negative: Angry, Anxious, Depressed, Flat, Hysterical, Quiet, Violent Speech Pattern: Clear, Appropriate. negative: Unclear, Inappropriate, Delayed, Slurred, Excessive, Aphasic, Artificially Ventilated - Laboratory and Diagnostics Result Diagrams: 10/19/16 04:10 10/19/16 04:10 Labs: 10/15/16 15:23 Elbow - Left Gram Stain - Final 10/15/16 15:23 Elbow - Left Wound Culture - Final Methicillin Resis Staph Aureus Laboratory WBC 7.6 X10^3/uL (3.6-10.0) 10/19/16 04:10 RBC 3.36 X10^6/uL (3.5-5.4) L 10/19/16 04:10 Hgb 10.6 g/dL (12.0-16.0) L 10/19/16 04:10 Hct 31.3 % (36.0-47.0) L 10/19/16 04:10 MCV 93.1 fL (80.0-100.0) 10/19/16 04:10 MCH 31.6 pg (27.0-34.0) 10/19/16 04:10 MCHC 34.0 g/dL (33.0-35.0) 10/19/16 04:10 RDW 12.5 % (11.6-16.5) 10/19/16 04:10 Plt Count 196 X10^3/uL (150.0-450.0) 10/19/16 04:10 Plt Count Comment Decreased (ADEQUATE) A 10/15/16 12:50 MPV 8.3 fL (7.4-11.0) 10/19/16 04:10 Neut % 58.8 % (42.0-75.0) 10/19/16 04:10 Lymph % 25.8 % (21.0-51.0) 10/19/16 04:10 [place] % 11.8 % (0.0-13.0) 10/19/16 04:10 Eos % 2.9 % (0.9-2.9) 10/19/16 04:10 Baso % 0.7 % (0.2-1.0) 10/19/16 04:10 Neut # 4.5 x10^3/uL (2.2-4.8) 10/19/16 04:10 Lymph # 2.0 X10^3/uL (1.3-2.9) 10/19/16 04:10 [place] # 0.9 x10^3/uL (0.3-0.8) H 10/19/16 04:10 Eos # 0.2 x10^3/uL (0.0-0.2) 10/19/16 04:10 Baso # 0.1 X10^3/uL (0.0-0.1) 10/19/16 04:10 Absolute Nucleated RBC 0.1 /100WBC 10/19/16 04:10 Plt Morphology Comment Normal (NORMAL) 10/15/16 12:50 RBC Morphology Normal (NORMAL) 10/15/16 12:50 Sodium 141 mmol/L (136-145) 10/19/16 04:10 Corrected Sodium TNP 10/19/16 04:10 Potassium 3.6 mmol/L (3.5-5.1) 10/19/16 04:10 Chloride 106 mmol/L (98-107) 10/19/16 04:10 Carbon Dioxide 25.8 mmol/L (21-32) 10/19/16 04:10 BUN 12 mg/dL (7-18) 10/19/16 04:10 Creatinine 0.75 mg/dL (0.55-1.02) 10/19/16 04:10 Est GFR (MDRD) Af Amer > 60 (>60) 10/19/16 04:10 Est GFR (MDRD) Non-Af > 60 (>60) 10/19/16 04:10 Glucose 94 mg/dL (65-99) 10/19/16 04:10 Calcium 7.7 mg/dL (8.5-10.1) L 10/19/16 04:10 Corrected Calcium 8.9 mg/dL (8.5-10.1) 10/19/16 04:10 Total Bilirubin 0.20 mg/dL (0.2-1.0) 10/19/16 04:10 AST 13 Units/L (15-37) L 10/19/16 04:10 ALT 14 Units/L (12-78) 10/19/16 04:10 Alkaline Phosphatase 73 Units/L (46-116) 10/19/16 04:10 Total Protein 6.1 g/dL (6.4-8.2) L 10/19/16 04:10 Albumin 2.5 g/dL (3.4-5.0) L 10/19/16 04:10 Globulin 3.6 g/dL (2.5-4.5) 10/19/16 04:10 Albumin/Globulin Ratio 0.7 Ratio (1.1-2.1) L 10/19/16 04:10 Vancomycin Trough 22.0 ug/mL (15-20) H* 10/19/16 04:10 - Plan (1) Cellulitis Status: Acute Qualifiers: Site of cellulitis: extremity Site of cellulitis of extremity: upper extremity Site of cellulitis of trunk: S Laterality: left Qualified Code(s ): L03.114 - Cellulitis of left upper limb Plan: CONTINUE VANCOMYCIN IV, CONTINUE TO MONITOR (2) MRSA (methicillin resistant Staphylococcus aureus) infection Status: Acute Plan: CONTINUE VANCOMYCIN IV, CONTINUE TO MONITOR (3) GERD (gastroesophageal reflux disease) Status: Chronic Qualifiers: Esophagitis presence: esophagitis presence not specified Qualified Code(s) : K21.9 - Gastro-esophageal reflux disease without esophagitis Plan: CONTINUE REGLAN 10MG PO QID, CONTINUE PRILOSEC 40MG DAILY, CONTINUE TO MONITOR (4) Hypertension Status: Chronic Qualifiers: Hypertension type: essential hypertension Qualified Code(s): I10 - Essential (primary) hypertension Plan: CONTINUE NORVASC 2.5MG DAILY, CONTINUE LOTENSIN 20MG DAILY, CONTINUE TOPROL XL 50MG BID, CONTINUE TO MONITOR
[2016-10-19] MEDS: VANCOMYCIN HCL 500 MG VIAL 250 MG, VANCOMYCIN HCL 1 GM VIAL 1 GM in D5W 250 ML IV 250 ML IV SCH (10:48)
[2016-10-19] MEDS: ANTIVERT TAB 25 MG PO SCH (22:33)
[2016-10-20 05:30] LABS: BASOPHILS % (AUTO) 0.5 % (0.2-1.0); EOSINOPHILS # (AUTO) 0.1 x10^3/uL (0.0-0.2); EOSINOPHILS % (AUTO) 1.8 % (0.9-2.9); HEMATOCRIT 32.2 % (36.0-47.0); HEMOGLOBIN 10.9 g/dL (12.0-16.0); LYMPHOCYTES # (AUTO) 1.9 X10^3/uL (1.3-2.9); LYMPHOCYTES % (AUTO) 24.4 % (21.0-51.0); MEAN CORPUSCULAR HEMOGLOBIN 31.5 pg (27.0-34.0); MEAN CORPUSCULAR HGB CONC 33.8 g/dL (33.0-35.0); MONOCYTES % (AUTO) 12.9 % (0.0-13.0); NEUTROPHILS # (AUTO) 4.7 x10^3/uL (2.2-4.8); NEUTROPHILS % (AUTO) 60.4 % (42.0-75.0); PLATELET COUNT 207 X10^3/uL (150.0-450.0); RED BLOOD COUNT 3.46 X10^6/uL (3.5-5.4); RED CELL DISTRIBUTION WIDTH 12.1 % (11.6-16.5); WHITE BLOOD COUNT 7.7 X10^3/uL (3.6-10.0)
[2016-10-20 05:38] LABS: ALANINE AMINOTRANSFERASE 15 Units/L (12-78); ALBUMIN 2.5 g/dL (3.4-5.0); ALKALINE PHOSPHATASE 68 Units/L (46-116); ASPARTATE AMINO TRANSFERASE 12 Units/L (15-37); BLOOD UREA NITROGEN 13 mg/dL (7-18); CALCIUM 7.8 mg/dL (8.5-10.1); CARBON DIOXIDE 27.9 mmol/L (21-32); CHLORIDE 104 mmol/L (98-107); CREATININE 0.71 mg/dL (0.55-1.02); GLUCOSE 105 mg/dL (65-99); SODIUM 138 mmol/L (136-145); TOTAL PROTEIN 6.4 g/dL (6.4-8.2); eGFR BLACK RACES > 60 (>60); eGFR NON BLACK RACES > 60 (>60)
[2016-10-20] MEDS ORDERED: NORVASC TAB 2.5 MG ONE (09:45)
[2016-10-20] MEDS: LASIX PO SCH (09:56)
[2016-10-20] MEDS: TOPROL XL PO SCH ×2 (09:56→21:50)
[2016-10-20] MEDS: LOTENSIN TAB 10 MG PO SCH (09:56)
[2016-10-20] MEDS: NORVASC TAB 2.5 MG PO SCH (09:56)
[2016-10-20 10:05] LABS: CREATININE 0.69 mg/dL (0.55-1.02); VANCOMYCIN,TROUGH 18.8 ug/mL (15-20)
[2016-10-20] MEDS ORDERED: DIPRIVAN VIAL ONE (10:20)
[2016-10-20] MEDS ORDERED: VERSED ONE (10:20)
[2016-10-20] MEDS ORDERED: DILAUDID PO ONE ×3 (10:26→21:48)
[2016-10-20] MEDS: DILAUDID PO SCH ×3 (10:31→21:50)
[2016-10-20] MEDS: FIORICET TAB PO SCH ×3 (10:41→21:50)
[2016-10-20] MEDS: VOLTAREN 1 % GEL MULTI DOSE TUBE TOP SCH ×3 (10:42→21:51)
[2016-10-20] MEDS: PriLOSEC PO SCH (10:42)
[2016-10-20] MEDS: MICRO K EXTEN CAP 10 MEQ PO SCH ×2 (10:42→21:50)
[2016-10-20] MEDS: GENTAMICIN TOPICAL CRM TOP SCH ×2 (10:42→21:51)
[2016-10-20] MEDS: REGLAN TAB 10 MG PO SCH ×4 (10:42→21:49)
[2016-10-20] MEDS ORDERED: MARCAINE 0.25% WITH EPI IJ ONE (11:43)
[2016-10-20] MEDS ORDERED: XYLOCAINE 1 % (PLAIN) ONE (11:43)
--- NOTE | 2016-10-20 12:01 | PCM.PROG ---
Progress Note - Progress Note for Day of Date: 10/20/16 - Subjective Subjective: IS SITTING UP IN CHAIR, ALERT AND ORIENTED ON MORNING ROUNDS. PATIENT'S FAMILY IS AT BEDSIDE. DRESSING NOTED TO LEFT ELBOW DRY AND INTACT. REDNESS NOTED TO AREA SURROUNDING DRESSING. VITALS THIS AM ARE 98.5-69- 26-96%-116/56. CBC WNL EXCEPT RBC 3.46, HGB 10.9, HCT 32.2. CMP WNL EXCEPT GLUCOSE 105, CALCIUM 7.8, AST 12, ALBUMIN 2.5. PATIENT'S FAMILY REQUEST RECEIVE OUTPATIENT ANTIBIOTICS. CASE MANAGEMENT WILL ARRANGE FOR THAT. CONSULTED WITH PATIENT AND PLANS TO TAKE TO OR FOR I&D OF WOUND. WE WILL CONTINUE WITH CURRENT PLAN OF CARE, RECHECK LABS, AND FOLLOW UP WITH PATIENT IN AM. - Past Medical Family Social History Past Med/Fam/Surg Hx: No changes since H&P Allergies: Allergies morphine Allergy (Verified 10/15/16 19:44) - Review of Systems ROS: No change since H&P - Vital Signs and I&O's Vital Signs: Temperature 98.4 F Pulse Rate [Right Brachial] 69 Respiratory Rate 20 Blood Pressure [Right Arm] 121/65 Blood Pressure [Left Arm] 139/80 Blood Pressure 124/63 O2 Sat by Pulse Oximetry 94 Intake and Output: Intake & Output 10/17/16 10/18/16 10/19/16 10/20/16 11:59 11:59 11:59 11:59 Intake Total 1997 1710 660 680 Balance 1997 1710 660 680 - Physical Exam Oriented: Normal. negative: Time, Person, Place, Not Oriented, Unable to test, Other Eyes: Normal Ear: Normal. negative: Right, Left, Swelling, Ecchymosis, Hemotypanum, Abrasion , Laceration Nose: Normal. negative: Injected, Discharge, Blood, Other Throat: Normal. negative: Tonsillar Hypertrophy, Red, Exudate, Dry, Other Respiratory: Normal. negative: Right, Left, Generalized, Superior, Inferior, Diminished, Wheezes, Rales, Rhonchi, OTHER Cardiovascular: Normal. negative: Tachycardia, Bradycardia, Irregular, S3, S4, Systolic, Diastolic, Murmur, Edema, Other : Normal. negative: Dysuria, Hematuria, Frequency, Discharge, Testicular Pain , Bleeding, , Other Auscultation: Bowel Sounds: Normal. negative: Bruit, Absent, Increased, Decreased, High Pitched, Other Palpation: Normal Tenderness: Normal. negative: Diffuse, RUQ, RLQ, LUQ, LLQ, Epigastric, Periumbilical, Suprapubic, Mild, Moderate, Severe, Rebound, Guarding, Rigidity, Other Skin: Red, Tender, Wound (LEFT ELBOW ). negative: Normal, Decreased Turgur, Rash, Papular, Macular, Maculopapular, Vesicular, Pustular, Petechial, Hot, Diaphoresis, Bruising, Ecchymosis, Other Musculoskeletal: Left, Elbow, Tender. negative: Normal, Right, Shoulder, Clavicle, Arm, Forearm, Wrist, Hand, Hip, Thigh, Knee, Leg, Ankle, Foot, Back: Thoracic, Back:Lumbar, Back:Midline, Back:Paraspinous, Pelvis, Swelling, Deformity, Pulse Deficit, Motor Deficit, Sensory Deficit, Instability, Crepitance Psychiatric: Normal. negative: Anxiety, Depression, Agitation, Other Mood Description: Calm Affect: Normal. negative: Angry, Anxious, Depressed, Flat, Hysterical, Quiet, Violent Speech Pattern: Clear, Appropriate - Laboratory and Diagnostics Result Diagrams: 10/20/16 04:10 10/20/16 08:30 Labs: 10/15/16 15:23 Elbow - Left Gram Stain - Final 10/15/16 15:23 Elbow - Left Wound Culture - Final Methicillin Resis Staph Aureus Laboratory WBC 7.7 X10^3/uL (3.6-10.0) 10/20/16 04:10 RBC 3.46 X10^6/uL (3.5-5.4) L 10/20/16 04:10 Hgb 10.9 g/dL (12.0-16.0) L 10/20/16 04:10 Hct 32.2 % (36.0-47.0) L 10/20/16 04:10 MCV 93.0 fL (80.0-100.0) 10/20/16 04:10 MCH 31.5 pg (27.0-34.0) 10/20/16 04:10 MCHC 33.8 g/dL (33.0-35.0) 10/20/16 04:10 RDW 12.1 % (11.6-16.5) 10/20/16 04:10 Plt Count 207 X10^3/uL (150.0-450.0) 10/20/16 04:10 Plt Count Comment Decreased (ADEQUATE) A 10/15/16 12:50 MPV 8.0 fL (7.4-11.0) 10/20/16 04:10 Neut % 60.4 % (42.0-75.0) 10/20/16 04:10 Lymph % 24.4 % (21.0-51.0) 10/20/16 04:10 [place] % 12.9 % (0.0-13.0) 10/20/16 04:10 Eos % 1.8 % (0.9-2.9) 10/20/16 04:10 Baso % 0.5 % (0.2-1.0) 10/20/16 04:10 Neut # 4.7 x10^3/uL (2.2-4.8) 10/20/16 04:10 Lymph # 1.9 X10^3/uL (1.3-2.9) 10/20/16 04:10 [place] # 1.0 x10^3/uL (0.3-0.8) H 10/20/16 04:10 Eos # 0.1 x10^3/uL (0.0-0.2) 10/20/16 04:10 Baso # 0.0 X10^3/uL (0.0-0.1) 10/20/16 04:10 Absolute Nucleated RBC 0.1 /100WBC 10/20/16 04:10 Plt Morphology Comment Normal (NORMAL) 10/15/16 12:50 RBC Morphology Normal (NORMAL) 10/15/16 12:50 Sodium 138 mmol/L (136-145) 10/20/16 04:10 Corrected Sodium TNP 10/20/16 04:10 Potassium 3.5 mmol/L (3.5-5.1) 10/20/16 04:10 Chloride 104 mmol/L (98-107) 10/20/16 04:10 Carbon Dioxide 27.9 mmol/L (21-32) 10/20/16 04:10 BUN 13 mg/dL (7-18) 10/20/16 04:10 Creatinine 0.69 mg/dL (0.55-1.02) 10/20/16 08:30 Est GFR (MDRD) Af Amer > 60 (>60) 10/20/16 04:10 Est GFR (MDRD) Non-Af > 60 (>60) 10/20/16 04:10 Glucose 105 mg/dL (65-99) H 10/20/16 04:10 Calcium 7.8 mg/dL (8.5-10.1) L 10/20/16 04:10 Corrected Calcium 9.0 mg/dL (8.5-10.1) 10/20/16 04:10 Total Bilirubin 0.20 mg/dL (0.2-1.0) 10/20/16 04:10 AST 12 Units/L (15-37) L 10/20/16 04:10 ALT 15 Units/L (12-78) 10/20/16 04:10 Alkaline Phosphatase 68 Units/L (46-116) 10/20/16 04:10 Total Protein 6.4 g/dL (6.4-8.2) 10/20/16 04:10 Albumin 2.5 g/dL (3.4-5.0) L 10/20/16 04:10 Globulin 3.9 g/dL (2.5-4.5) 10/20/16 04:10 Albumin/Globulin Ratio 0.6 Ratio (1.1-2.1) L 10/20/16 04:10 Vancomycin Trough 18.8 ug/mL (15-20) 10/20/16 08:30 - Plan (1) Cellulitis Status: Acute Qualifiers: Site of cellulitis: extremity Site of cellulitis of extremity: upper extremity Site of cellulitis of trunk: S Laterality: left Qualified Code(s ): L03.114 - Cellulitis of left upper limb Plan: CONTINUE VANCOMYCIN IV, CONTINUE TO MONITOR (2) MRSA (methicillin resistant Staphylococcus aureus) infection Status: Acute Plan: CONTINUE VANCOMYCIN IV, CONTINUE TO MONITOR (3) GERD (gastroesophageal reflux disease) Status: Chronic Qualifiers: Esophagitis presence: esophagitis presence not specified Qualified Code(s) : K21.9 - Gastro-esophageal reflux disease without esophagitis Plan: CONTINUE REGLAN 10MG PO QID, CONTINUE PRILOSEC 40MG DAILY, CONTINUE TO MONITOR (4) Hypertension Status: Chronic Qualifiers: Hypertension type: essential hypertension Qualified Code(s): I10 - Essential (primary) hypertension Plan: CONTINUE NORVASC 2.5MG DAILY, CONTINUE LOTENSIN 20MG DAILY, CONTINUE TOPROL XL 50MG BID, CONTINUE TO MONITOR
[2016-10-20] MEDS ORDERED: LR 1000 ML IV 1,000 ML IV ONE ×2 (12:22→12:43)
[2016-10-20] MEDS ORDERED: FENTANYL INJ 100 mcg ONE (13:21)
[2016-10-20] MEDS ORDERED: NS IRRIGATION 1000 ML 1,000 ML IR ONE (13:23)
[2016-10-20] MEDS ORDERED: ZOFRAN INJ 4 MG VIAL IVP PRN (14:35)
[2016-10-20] MEDS: ANTIVERT TAB 25 MG PO SCH (21:51)
[2016-10-21] MEDS: NS 1000 ML 1,000 ML IV SCH ×3 (00:15→00:23)
[2016-10-21] MEDS ORDERED: DILAUDID PO ONE ×2 (03:14→09:10)
[2016-10-21] MEDS: DILAUDID PO SCH ×3 (03:17→10:57)
[2016-10-21] MEDS: FIORICET TAB PO SCH ×3 (03:18→10:57)
[2016-10-21 06:17] LABS: BASOPHILS # (AUTO) 0.1 X10^3/uL (0.0-0.1); BASOPHILS % (AUTO) 1.1 % (0.2-1.0); EOSINOPHILS # (AUTO) 0.2 x10^3/uL (0.0-0.2); EOSINOPHILS % (AUTO) 1.9 % (0.9-2.9); HEMATOCRIT 32.6 % (36.0-47.0); HEMOGLOBIN 11.2 g/dL (12.0-16.0); LYMPHOCYTES # (AUTO) 2.3 X10^3/uL (1.3-2.9); LYMPHOCYTES % (AUTO) 28.2 % (21.0-51.0); MEAN CORPUSCULAR HEMOGLOBIN 31.7 pg (27.0-34.0); MEAN CORPUSCULAR HGB CONC 34.3 g/dL (33.0-35.0); MEAN CORPUSCULAR VOLUME 92.6 fL (80.0-100.0); MEAN PLATELET VOLUME 8.4 fL (7.4-11.0); MONOCYTES # (AUTO) 0.9 x10^3/uL (0.3-0.8); MONOCYTES % (AUTO) 10.9 % (0.0-13.0); NEUTROPHILS # (AUTO) 4.8 x10^3/uL (2.2-4.8); NEUTROPHILS % (AUTO) 57.9 % (42.0-75.0); PLATELET COUNT 216 X10^3/uL (150.0-450.0); RED BLOOD COUNT 3.52 X10^6/uL (3.5-5.4); RED CELL DISTRIBUTION WIDTH 12.4 % (11.6-16.5); WHITE BLOOD COUNT 8.3 X10^3/uL (3.6-10.0)
[2016-10-21 06:38] LABS: ALANINE AMINOTRANSFERASE 15 Units/L (12-78); ALBUMIN 2.7 g/dL (3.4-5.0); ALKALINE PHOSPHATASE 70 Units/L (46-116); ASPARTATE AMINO TRANSFERASE 14 Units/L (15-37); BLOOD UREA NITROGEN 15 mg/dL (7-18); CALCIUM 8.2 mg/dL (8.5-10.1); CARBON DIOXIDE 25.1 mmol/L (21-32); CHLORIDE 101 mmol/L (98-107); COR CA(FOR HYPOALB) 9.2 mg/dL (8.5-10.1); CREATININE 0.87 mg/dL (0.55-1.02); GLUCOSE 95 mg/dL (65-99); SODIUM 138 mmol/L (136-145); TOTAL PROTEIN 6.7 g/dL (6.4-8.2); eGFR BLACK RACES > 60 (>60); eGFR NON BLACK RACES > 60 (>60)
[2016-10-21] MEDS ORDERED: NORVASC TAB 2.5 MG ONE (09:08)
[2016-10-21] MEDS: LOTENSIN TAB 10 MG PO SCH (10:54)
[2016-10-21] MEDS: PriLOSEC PO SCH (10:54)
[2016-10-21] MEDS: LASIX PO SCH (10:54)
[2016-10-21] MEDS: NORVASC TAB 2.5 MG PO SCH (10:55)
[2016-10-21] MEDS: TOPROL XL PO SCH (10:55)
[2016-10-21] MEDS: MICRO K EXTEN CAP 10 MEQ PO SCH (10:55)
[2016-10-21] MEDS: GENTAMICIN TOPICAL CRM TOP SCH (10:56)
[2016-10-21] MEDS: REGLAN TAB 10 MG PO SCH (10:56)
[2016-10-21 12:03] VITALS: BP 111/56
[2016-10-21] MEDS: VANCOMYCIN HCL 500 MG VIAL 250 MG, VANCOMYCIN HCL 1 GM VIAL 1 GM in D5W 250 ML IV 250 ML IV SCH (12:05)
== END 2016-10-21 12:55 | disposition home health service (06) | DRG 581 ==
LOC: MED/SURG 11:33 → UNDOADMIN 11:33 → MED/SURG 11:58
PROVIDERS: ADMIT Internal Medicine; ATTEND Internal Medicine
PROC: 0J9H0ZZ Drainage of Left Lower Arm Subcutaneous Tissue and Fascia, Open Approach (ICD-10-PCS; principal; 2016-10-20 11:15)
DX: L03.114 Cellulitis of left upper limb (principal); L02.414 Cutaneous abscess of left upper limb; I10 Essential (primary) hypertension; B95.62 Methicillin resistant Staphylococcus aureus infection as the cause of diseases classified elsewhere; D51.8 Other vitamin B12 deficiency anemias; K21.9 Gastro-esophageal reflux disease without esophagitis; Z91.81 History of falling
CPT/HCPCS: 36415; 80053; 80202; 82565; 85025; 87070; 87077; 87186; 87205; A4222; S0020; J2001; J2250; J2405; J3010; J3370; J3490; J7120

== ENCOUNTER → 2017-03-15 | Outpatient (CLI) | payer OTHER ==
[2017-03-15 11:40] LABS: CREATININE 1.18 mg/dL (0.55-1.02)
--- NOTE | 2017-03-16 12:52 | CT ---
HISTORY: Right upper quadrant pain, hiatal hernia, nausea vomiting diarrhea, post cholecystectomy Study: CT chest and abdomen with contrast Comparison: 03/26/2014 Technique: Multiple axial images of the chest and abdomen were obtained after administration of IV co ntrast. Dose reduction techniques including Automated Exposure Control (AEC) and adjustment of mA an d kV were utilized. CT chest findings: The exam was limited by patient combativeness and claustrophobia. Patient was unable to comply with s can instructions. No vascular abnormality is identified. Normal appearance of the heart and pericardi um. The aorta appears normal in course and caliber. There is a large diaphragmatic hernia noted on th e left containing the stomach and portions of the transverse colon. There is associated atelectasis a t the left lung base. Airways are patent. There is a chronic appearing compression fracture at T12. S table tiny nodule at the right lung base on axial image 28 and small intrafissural lymph nodes also n oted on the right that appear unchanged. CT abdomen findings: The liver, spleen, pancreas, kidneys, and adrenal glands are unremarkable in their CT appearance. The gallbladder is removed. No renal calculi or hydronephrosis identified. No free intraperitoneal air. No evidence of intestinal obstruction or inflammation. The appendix is n ot visualized. No ascites is seen. 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 There is diffuse osteopenia. There is calcified plaque noted wit hin the aorta without evidence of aneurysm. No pathologically enlarged lymph nodes are identified. Th e urinary bladder was not scanned. IMPRESSION CHEST: 1. Limited study due to patient combativeness and claustrophobia. 2. Large left-sided diaphragmatic hernia containing the stomach and portions of the transverse colon IMPRESSION ABDOMEN: 1. No acute findings in the abdomen. 2. Chronic T12 compression fracture. Reported By:
== END | disposition home or self-care (01) | DRG 204 ==
LOC: RAD 11:05
PROVIDERS: ATTEND Internal Medicine
DX: R05 Cough (principal); M48.54XA Collapsed vertebra, not elsewhere classified, thoracic region, initial encounter for fracture; R10.11 Right upper quadrant pain; K44.9 Diaphragmatic hernia without obstruction or gangrene
CPT/HCPCS: 36415; 71260; 74160; 82565; 84520; A4222

== ENCOUNTER 2017-03-26 18:16 | Inpatient (IN) | payer OTHER ==
[2017-03-26 18:44] LABS: ABG HCO3 27.9 mmol/L (22-26)
[2017-03-26] MEDS ORDERED: TORADOL 30 MG VIAL IVP STA (18:44)
[2017-03-26] MEDS ORDERED: TORADOL 30 MG VIAL ONE (18:50)
--- NOTE | 2017-03-26 18:52 | DR.GENAD ---
HPI - PCP Primary Care Physician: esequiel - Complaint/Symptoms Chief Complaint Doctors Comments: Patient is complaining of epigastric and xihoid pain for the past 24 hours getting worst. Patient state she has not gone to the bathroom in 2-3 days but did a small amount today but not enough to mention. States she feel her problem is that she need to go to the bathroom. states she has a colostomy before and the past but had the surgery repaired and she has been trying to get back to the doctor that did her bowel surgry. She is complainin of RUQ pain presently that moves in the top part of her stomach. She denies nausea, vomiting or diarrhea. She denies hematuria or any recent trauma. She denies fever or chills. States she has medicines at home she takes for pain and want to send her son home to get her medicines. Chief Complaint:: "hurting in abdomen for three days went to doctor maverick and he told he to take mirlax and she did and this still have not helped" - Nurses notes reviewed Nurses Notes Review: Yes - Source History Provided: Patient, Family Member - Mode of Arrival Mode of Arrival: Wheelchair - Timing Onset of Chief Complaint: 03/23/17 Came on: Gradually - Duration Duration: Constant How lon Duration: Days - Location Location: RUQ and epigastric abdominal pain - Severity Severity: Moderate - Modifying Factors Worsens:: nothing Improves:: nothing PMH - PMH Past Medical History: Yes Past Medical History: Arthritis, CHF, CVA, GERD, Hypertension Past Medical History Comment: small bowel obstruction Past Surgical History: Yes Surgical History: Abdominal Surgery, Cholecystectomy, Hysterectomy, Joint Replacement, Other Past Surgical History Comment: bowel resectioning - Family History History of Family Medical Conditions: Yes Family Medical History: Cancer, Heart Failure, Hypertension - Social History Does patient currently use any type of tobacco product: No Have you used tobacco products in the last 12 months: No Type of Tobacco Use: None Does any household member use tobacco: No Alcohol Use: None Do you use any recreational Drugs:: No Lives With: Family Lives Where: Home - infectious screening In the last 2 months have you had wt loss of >10#?: NO Have you had fever, night sweats or hemotysis?: No Have you traveled outside the country in the last 6 months?: No Isolation: Standard ROS - Review of Systems Constitutional: No Symptoms Reported, Irritable, Loss of Appetite. negative: See HPI, Chills, Diaphoresis, Fever, Malaise, Weakness, Fatigue, Other Eyes: No Symptoms Reported ENTM: No Symptoms Reported Respiratoy: No Symptoms Reported, Short of Breath Cardiovascular: No Symptoms Reported, Chest Pain Gastrointestinal/Abdominal: Abdominal Pain, Constipation. negative: No Symptoms Reported, See HPI, Diarrhea, Nausea, Vomiting, Food Intolerance, Other Genitourinary: No Symptoms Reported Neurological: No Symptoms Reported Musculoskeletal: No Symptoms Reported Integumentary: No Symptoms Reported Hematologic/Lymphatic: No Symptoms Reported Endocrine: No Symptoms Reported Psychiatric: No Symptoms Reported PE - Vital Signs Vitals: Temperature 98.1 F Pulse Rate [Left] 76 Pulse Rate 91 Respiratory Rate 19 Blood Pressure [Right Arm] 131/79 Blood Pressure [Left Arm] 139/80 Blood Pressure 165/95 O2 Sat by Pulse Oximetry 100 - General Limitations: No Limitations General Appearance: Alert, In Distress (moderate) - Head Head Exam: Normal Inspection, Atraumatic, Normocephalic - Eyes Eye exam: Normal Appearance, PERRL, EOMI. negative: Scleral Icterus, Conjunctival Injection, Nystagmus, Miosis, Mydrasis, Periorbital Swelling, Periorbital Tenderness, Other - ENT ENT Exam: Normal Exam, Normal Oropharynx, Normal External Ear Exam, Mucous Membranes Moist, TM's Normal Bilaterally External Ear Exam: Normal External Inspection TM/Canal Exam: Bilateral Normal Nose Exam: Normal Nose Exam Mouth Exam: Normal Inspection Throat Exam: Normal Inspection - Neck Neck Exam: Normal Inspection, Full ROM, Trachea Midline - Chest Chest Inspection: Normal Inspection, Symmetric Chest Wall Rise - Respiratory Respiratory Exam: Normal Lung Sounds Bilat Respiratory Exam: Bilateral Clear to Auscultation - Cardiovascular Cardiovascular Exam: Regular Rate, Normal Rhythm, Normal Heart Sounds - Abdominal Exam Abdominal Exam: Normal Inspection, Normal Bowel Sounds, Distention, Guarding, Hyperactive Bowel Sounds Abdominal Tenderness: RUQ, Moderate (RUQ distended bowels with hyperactive bowel sounds) - Extremities Extremities Exam: Normal Inspection, Full ROM, Normal Capillary Refill - Back Back Exam: Normal Inspection, Full ROM, Tenderness, (R) CVA Tenderness - Neurologic Neurological Exam: Alert, Oriented X3, CN II-XII Intact, Reflexes Normal. negative: Normal Gait - Psychiatric Psychiatric Exam: Normal Affect, Normal Mood - Skin Skin Exam: Warm, Dry, Intact, Normal Color Course - Consultation Called: 23:28 Call Returned: 23:28 (Dr. Garland to admit) - Education/Counseling Education/Counseling: Patient, Family Educated On: Treatment, Diagnosis, Needs for Follow Up ROR - Labs Reviewed Laboratory Results Reviewed?: Yes (all labs and x-ray results reviewed and discussed with atient) Result Diagrams: 03/26/17 19:15 03/26/17 19:15 Laboratory: WBC 9.0 X10^3/uL (3.6-10.0) 03/26/17 19:15 RBC 4.00 X10^6/uL (3.5-5.4) 03/26/17 19:15 Hgb 12.6 g/dL (12.0-16.0) 03/26/17 19:15 Hct 37.6 % (36.0-47.0) 03/26/17 19:15 MCV 93.8 fL (80.0-100.0) 03/26/17 19:15 MCH 31.5 pg (27.0-34.0) 03/26/17 19:15 MCHC 33.6 g/dL (33.0-35.0) 03/26/17 19:15 RDW 12.3 % (11.6-16.5) 03/26/17 19:15 Plt Count 184 X10^3/uL (150.0-450.0) 03/26/17 19:15 MPV 8.7 fL (7.4-11.0) 03/26/17 19:15 Neut % 69.9 % (42.0-75.0) 03/26/17 19:15 Lymph % 17.8 % (21.0-51.0) L 03/26/17 19:15 Luna % 10.8 % (0.0-13.0) 03/26/17 19:15 Eos % 1.2 % (0.9-2.9) 03/26/17 19:15 Baso % 0.3 % (0.2-1.0) 03/26/17 19:15 Neut # 6.3 x10^3/uL (2.2-4.8) H 03/26/17 19:15 Lymph # 1.6 X10^3/uL (1.3-2.9) 03/26/17 19:15 Luna # 1.0 x10^3/uL (0.3-0.8) H 03/26/17 19:15 Eos # 0.1 x10^3/uL (0.0-0.2) 03/26/17 19:15 Baso # 0.0 X10^3/uL (0.0-0.1) 03/26/17 19:15 Absolute Nucleated RBC 0.0 /100WBC 03/26/17 19:15 INR Target Range - 03/26/17 19:15 INR 1.03 (0.8-1.3) 03/26/17 19:15 PTT 37.3 SECONDS (22.9-36.5) H 03/26/17 19:15 PTT Comment - 03/26/17 19:15 Sample Site Right brachial 03/26/17 18:20 ABG pH 7.420 (7.35-7.45) 03/26/17 18:20 ABG pCO2 43.0 mmHg (35.0-45.0) 03/26/17 18:20 ABG pO2 84.0 mmHg (80.0-100.0) 03/26/17 18:20 ABG HCO3 27.9 mmol/L (22-26) H 03/26/17 18:20 ABG O2 Saturation 96.0 % (90-100) 03/26/17 18:20 ABG Base Excess 3.0 mmol/L (-2.0-2.0) H 03/26/17 18:20 Ozran Test Na 03/26/17 18:20 A-a Gradient 12.0 mmHg 03/26/17 18:20 FiO2 21.000 03/26/17 18:20 Blood Gas Comments Evangelina well aw 03/26/17 18:20 Sodium 132 mmol/L (136-145) L 03/26/17 19:15 Corrected Sodium 133 mmol/L (136-145) L 03/26/17 19:15 Potassium 3.8 mmol/L (3.5-5.1) 03/26/17 19:15 Chloride 94 mmol/L (98-107) L 03/26/17 19:15 Carbon Dioxide 28.6 mmol/L (21-32) 03/26/17 19:15 BUN 23 mg/dL (7-18) H 03/26/17 19:15 Creatinine 1.22 mg/dL (0.55-1.02) H 03/26/17 19:15 Est GFR (MDRD) Af Amer 54 (>60) L 03/26/17 19:15 Est GFR (MDRD) Non-Af 45 (>60) L 03/26/17 19:15 Glucose 121 mg/dL (65-99) H 03/26/17 19:15 Calcium 9.1 mg/dL (8.5-10.1) 03/26/17 19:15 Corrected Calcium TNP 03/26/17 19:15 Magnesium 1.6 mg/dL (1.7-2.9) L 03/26/17 19:15 Total Bilirubin 0.50 mg/dL (0.2-1.0) 03/26/17 19:15 AST 17 Units/L (15-37) 03/26/17 19:15 ALT 19 Units/L (12-78) 03/26/17 19:15 Alkaline Phosphatase 97 Units/L (46-116) 03/26/17 19:15 Creatine Kinase 26 Units/L (26-192) 03/26/17 19:15 CK-MB (CK-2) < 1.0 ng/mL (0-4.0) 03/26/17 19:15 CK/CKMB % Calc 3.9 % (<4) 03/26/17 19:15 Troponin I < 0.02 ng/mL (0-1.5) 03/26/17 19:15 Total Protein 7.7 g/dL (6.4-8.2) 03/26/17 19:15 Albumin 3.4 g/dL (3.4-5.0) 03/26/17 19:15 Globulin 4.3 g/dL (2.5-4.5) 03/26/17 19:15 Albumin/Globulin Ratio 0.8 Ratio (1.1-2.1) L 03/26/17 19:15 Specimen Type Clean catch urine 03/26/17 19:01 Urine Color Yellow (YELLOW) 03/26/17 19:01 Urine Appearance Clear (CLEAR) 03/26/17 19:01 Urine pH 6.5 (5.0 - 8.0) 03/26/17 19:01 Ur Specific [place] 1.010 (1.000-1.030) 03/26/17 19:01 Urine Protein 1+ (NEGATIVE) 03/26/17 19:01 Urine Glucose (UA) Negative (NEGATIVE) 03/26/17 19:01 Urine Ketones Negative (NEGATIVE) 03/26/17 19:01 Urine Occult Blood 1+ (NEGATIVE) 03/26/17 19:01 Urine Nitrite Negative (NEGATIVE) 03/26/17 19:01 Urine Bilirubin Negative (NEGATIVE) 03/26/17 19:01 Urine Urobilinogen Normal (NORMAL) 03/26/17 19:01 Ur Leukocyte Esterase 3+ (NEGATIVE) 03/26/17 19:01 Urine RBC 01 - 03 /HPF (NEGATIVE) 03/26/17 19:01 Urine WBC 10 - 15 /HPF (NEGATIVE) 03/26/17 19:01 Ur Squamous Epith Cells Few /HPF (NEGATIVE) 03/26/17 19:01 Amorphous Sediment Trace /HPF (NEGATIVE) 03/26/17 19:01 Urine Bacteria Trace /HPF (NEGATIVE) 03/26/17 19:01 Hyaline Casts Rare /LPF (NEGATIVE) 03/26/17 19:01 Ur Culture Indicated? Yes/culture set up 03/26/17 19:01 - XRAY XRAY Interpreted by: Radiologist (CT abdomen and pelvis: Stable intratrhoracic stomach with fluid distentions several loops of mid and lower small bowel suggest ileus.) XRAY Findings: KUB: findings nonobstructive intestinal distention. - EKG Rate: 81 [place]: Normal Rhythm: NSR, PACs Hypertrophy: NORMA ST: Nonsp - Diagnosis Discharge Problem: Chest pain, rule out acute myocardial infarction, Respiratory distress, Hyponatremia, abdominal pain ileus, Urinary tract infection, Chronic kidney disease (CKD), Hyperglycemia, old compression fracture T12 - Discharge Plan Disposition: ADMITTED INPATIENT Condition: Stable - Follow ups/Referrals Follow ups/Referrals: Tenzin Dawn [Primary Care Provider] - 3 days - Instructions
[2017-03-26] MEDS ORDERED: ATIVAN INJ 2 MG VIAL ONE (19:06)
[2017-03-26] MEDS ORDERED: ATIVAN INJ 2 MG VIAL IVP ONE ×2 (19:10→20:32)
[2017-03-26 19:27] LABS: BILIRUBIN,URINE NEGATIVE (NEGATIVE); BLOOD/HEMOGLOBIN,URINE 1+ (NEGATIVE); GLUCOSE, URINE NEGATIVE (NEGATIVE); KETONES,URINE NEGATIVE (NEGATIVE); LEUKOCYTE ESTERASE ,URINE 3+ (NEGATIVE); NITRITES,URINE NEGATIVE (NEGATIVE); PH,URINE 6.5 (5.0 - 8.0); PROTEIN,URINE 1+ (NEGATIVE); UROBILINOGEN,URINE NORMAL (NORMAL)
[2017-03-26 19:38] LABS: BASOPHILS % (AUTO) 0.3 % (0.2-1.0); EOSINOPHILS # (AUTO) 0.1 x10^3/uL (0.0-0.2); EOSINOPHILS % (AUTO) 1.2 % (0.9-2.9); HEMATOCRIT 37.6 % (36.0-47.0); HEMOGLOBIN 12.6 g/dL (12.0-16.0); LYMPHOCYTES # (AUTO) 1.6 X10^3/uL (1.3-2.9); LYMPHOCYTES % (AUTO) 17.8 % (21.0-51.0); MEAN CORPUSCULAR HEMOGLOBIN 31.5 pg (27.0-34.0); MEAN CORPUSCULAR HGB CONC 33.6 g/dL (33.0-35.0); MEAN CORPUSCULAR VOLUME 93.8 fL (80.0-100.0); MEAN PLATELET VOLUME 8.7 fL (7.4-11.0); MONOCYTES % (AUTO) 10.8 % (0.0-13.0); NEUTROPHILS # (AUTO) 6.3 x10^3/uL (2.2-4.8); NEUTROPHILS % (AUTO) 69.9 % (42.0-75.0); PLATELET COUNT 184 X10^3/uL (150.0-450.0); RED CELL DISTRIBUTION WIDTH 12.3 % (11.6-16.5)
[2017-03-26 19:39] LABS: APPEARANCE,URINE CLEAR (CLEAR); COLOR,URINE YELLOW (YELLOW)
[2017-03-26 19:46] LABS: AMORPHOUS SEDIMENT,UR TRACE /HPF (NEGATIVE); BACTERIA,URINE TRACE /HPF (NEGATIVE); SQUAMOUS EPITHELIAL CELL,UR FEW /HPF (NEGATIVE)
[2017-03-26 19:47] LABS: HYALINE CASTS, URINE RARE /LPF (NEGATIVE)
[2017-03-26 19:47] LABS: BLOOD UREA NITROGEN 23 mg/dL (7-18); CALCIUM 9.1 mg/dL (8.5-10.1); CARBON DIOXIDE 28.6 mmol/L (21-32); CHLORIDE 94 mmol/L (98-107); COR NA(FOR HYPERGLY) 133 mmol/L (136-145); CREATININE 1.22 mg/dL (0.55-1.02); SODIUM 132 mmol/L (136-145); TROPONIN I < 0.02 ng/mL (0-1.5); eGFR BLACK RACES 54 (>60); eGFR NON BLACK RACES 45 (>60)
[2017-03-26 19:50] LABS: ALANINE AMINOTRANSFERASE 19 Units/L (12-78); ALBUMIN 3.4 g/dL (3.4-5.0); ALKALINE PHOSPHATASE 97 Units/L (46-116); ASPARTATE AMINO TRANSFERASE 17 Units/L (15-37); CKMB % 3.9 % (<4); CREATINE KINASE 26 Units/L (26-192); CREATINE KINASE MB < 1.0 ng/mL (0-4.0); MAGNESIUM 1.6 mg/dL (1.7-2.9); TOTAL PROTEIN 7.7 g/dL (6.4-8.2)
--- NOTE | 2017-03-26 19:51 | RAD ---
Examination: Chest, AP view History: Stomach and chest pain, history of bowel obstruction Comparison reference 02/10/2015 Findings: There is no change in the marked diaphragm elevation on the left. The heart is partly obscu red but is probably of normal size. The mediastinum is in normal position. Right lung is clear. Impression: Chronic left diaphragm elevation. No acute process or interval change since prior examina tion. Standard PA and lateral views would be helpful for further evaluation. Reported By:
--- NOTE | 2017-03-26 19:52 | RAD ---
Examination: KUB History: No bowel movement, abdominal pain Findings: There is moderately severe gaseous dilatation of small bowel and colon. Distended intestina l segments are projected over the right inguinal/femoral area. The retroperitoneal structures are obs cured. No evidence for ascites or mass. Impression: Findings suggest a nonobstructive intestinal distention. Localized protrusion of bowel in the right inguinal area may represent laxity of the abdominal wall or hernia; correlate clinically. Reported By:
[2017-03-26] MEDS: NS 1000 ML 1,000 ML IV SCH (20:00)
[2017-03-26] MEDS ORDERED: ROCEPHIN VIAL 1 GM 1 GM in NS 100 ML IV + SPIKE MINIBAG* 100 ML IV ONE (23:24)
[2017-03-26] MEDS ORDERED: ROCEPHIN VIAL 1 GM ONE (23:38)
[2017-03-26] MEDS ORDERED: NS 100 ML IV + SPIKE MINIBAG* 100 ML IV ONE (23:38)
[2017-03-27 01:19] LABS: CKMB % 3.3 % (<4); CREATINE KINASE MB 1.1 ng/mL (0-4.0); TROPONIN I 0.03 ng/mL (0-1.5)
[2017-03-27 02:45] VITALS: BMI 28.2
[2017-03-27 06:55] LABS: CHOL/HDL RATIO 3.6 (0.0-5.0)
[2017-03-27 07:07] LABS: CREATINE KINASE MB 1.6 ng/mL (0-4.0); TROPONIN I 0.04 ng/mL (0-1.5)
[2017-03-27] MEDS ORDERED: DILAUDID PO ONE ×3 (08:04→20:08)
[2017-03-27] MEDS: DILAUDID PO PRN ×3 (08:09→20:19)
[2017-03-27] MEDS ORDERED: PATIENT'S HOME MEDICATION (Omeprazole [Omeprazole] 40 MG) PO SCH (09:00)
[2017-03-27 09:07] LABS: BASOPHILS % (AUTO) 0.5 % (0.2-1.0); EOSINOPHILS # (AUTO) 0.1 x10^3/uL (0.0-0.2); EOSINOPHILS % (AUTO) 1.4 % (0.9-2.9); HEMOGLOBIN 12.4 g/dL (12.0-16.0); LYMPHOCYTES # (AUTO) 1.8 X10^3/uL (1.3-2.9); LYMPHOCYTES % (AUTO) 21.8 % (21.0-51.0); MEAN CORPUSCULAR HEMOGLOBIN 31.4 pg (27.0-34.0); MEAN CORPUSCULAR HGB CONC 33.5 g/dL (33.0-35.0); MEAN CORPUSCULAR VOLUME 93.9 fL (80.0-100.0); MEAN PLATELET VOLUME 9.8 fL (7.4-11.0); MONOCYTES % (AUTO) 11.9 % (0.0-13.0); NEUTROPHILS # (AUTO) 5.2 x10^3/uL (2.2-4.8); NEUTROPHILS % (AUTO) 64.4 % (42.0-75.0); PLATELET COUNT 177 X10^3/uL (150.0-450.0); RED BLOOD COUNT 3.94 X10^6/uL (3.5-5.4); RED CELL DISTRIBUTION WIDTH 12.5 % (11.6-16.5); WHITE BLOOD COUNT 8.1 X10^3/uL (3.6-10.0)
[2017-03-27 09:17] LABS: ALANINE AMINOTRANSFERASE 18 Units/L (12-78); ALBUMIN 3.1 g/dL (3.4-5.0); ALKALINE PHOSPHATASE 87 Units/L (46-116); ASPARTATE AMINO TRANSFERASE 20 Units/L (15-37); BLOOD UREA NITROGEN 21 mg/dL (7-18); CARBON DIOXIDE 28.2 mmol/L (21-32); CHLORIDE 97 mmol/L (98-107); COR CA(FOR HYPOALB) 9.7 mg/dL (8.5-10.1); CREATININE 1.07 mg/dL (0.55-1.02); SODIUM 135 mmol/L (136-145); TOTAL PROTEIN 7.1 g/dL (6.4-8.2); eGFR BLACK RACES > 60 (>60); eGFR NON BLACK RACES 52 (>60)
[2017-03-27] MEDS ORDERED: ROCEPHIN VIAL 1 GM 1 GM in NS 100 ML IV + SPIKE MINIBAG* 100 ML IV SCH (09:30)
[2017-03-27] MEDS ORDERED: NORVASC TAB 2.5 MG ONE (09:46)
[2017-03-27] MEDS: PriLOSEC PO SCH (10:12)
[2017-03-27] MEDS: NORVASC TAB 2.5 MG PO SCH (10:12)
[2017-03-27] MEDS: LOVENOX INJ 40 MG SYR SC SCH (10:12)
[2017-03-27] MEDS: REGLAN TAB 10 MG PO SCH ×2 (10:13→20:18)
[2017-03-27] MEDS: CIPRO IV 400 MG PREMIX* 400 MG/200 ML IV.SOLN. IV SCH ×2 (10:13→20:17)
[2017-03-27] MEDS: TOPROL XL PO SCH ×2 (10:13→20:19)
[2017-03-27] MEDS: LASIX PO SCH (10:13)
[2017-03-27] MEDS: PROTONIX INJ 40 MG VIAL IVP SCH (10:13)
[2017-03-27] MEDS: MICRO K EXTEN CAP 10 MEQ PO SCH ×2 (10:13→20:18)
[2017-03-27] MEDS: LOTENSIN TAB 10 MG PO SCH ×2 (10:13→20:18)
[2017-03-27 12:18] LABS: CKMB % 1.8 % (<4); CREATINE KINASE MB 1.4 ng/mL (0-4.0); TROPONIN I 0.02 ng/mL (0-1.5)
[2017-03-27] MEDS: LEVSIN/MAALOX/LIDOC VISC PO PRN (16:00)
[2017-03-27] MEDS ORDERED: CIPRO TAB 500 MG PO ONE (20:39)
--- NOTE | 2017-03-27 20:54 | DR.H&P ---
H&P - History & Physical for Day of: H&P Date: 03/26/17 - Chief Complaint Chief Complaint: abdominal pain - Allergies Allergies/Adverse Reactions: Allergies Allergy/AdvReac Type Severity Reaction Status Date / Time morphine Allergy Verified 10/15/16 19:44 - History of Present Illness History of Present Illness: is a 86 year old patient of ours who presented to the emergency room with complaints of abdominal pain. Pain is in the epigastric/xiphoid region. She reports that symptoms started three days ago. She admits to not having a bowel movement in the past three days. Patient has a history of a colostomy in the past, but it has been reversed. Patient reports pain that begins in the RUQ and radiates to the epigastric region. She denies nausea, vomiting, diarrhea, fever, or hematuria. Patient has a medical history of Cataracts, CVA, CHF, Hypertension, Gerd, Hiatal Hernia, Diverticulosis, Constipation, Diarrhea, UTIs, Muscle Weakness, Arthritis, Back PainOn examination, heart is regular in rate and rhythm. Bilateral lungs are clear to auscultation. Abdomen is round, soft, and noted with moderate tenderness to the RUQ. Hyperactive bowel sounds are noted in all quadrants. There is normal range of motion noted to all extremities. On arrival to the ER, vitals were 98.1, 91, 28, 86% RA, 165/95. Labs, and xrays/CT were obtained. Abnormal lab values include the following: PTT 37.3, Sodium 132, Corrected Sodium 133, Chloride 94, BUN 23, Creatinine 1.22, GFR af 54, GFR non 45, Glucose 121, Magnesium 1.6, A/G Ratio 0.8. Urinalysis reported: Protein 1+, Occult Blood 1+, Leuk Est 3+, RBC 1-3, WBC 10-15, Sediment Trace, Bacteria Trace , Hyaline Casts Rare, Culture Pending. ABG reported: HCO3 27.9, Base Excess 3.0. Chest X-Ray repored: Chronic left diaphragm elevation. No acute process or interval change since prior examination. KUB reported: Findings suggest a nonobstructive intestinal distention. Localized protrusion of bowel in the right inguinal area may represent laxity of the abdominal wall or hernia; correlate clinically. Abdomen/Pelvis CT repored: Stable intrathoracic stomach with fluid distention several loops of mid and lower small bowel suggest ileus. EKG: Sinus Rhythm. Rate=81. Patient admitted to the hospital as observation for further evaluation and treatment. She was started on normal saline at 75ml/ hr and cipro 400mg IV q12h. We plan to follow up with AM labs and continue to monitor patient. - Past Medical History Past Medical History: Arthritis, CHF, CVA, GERD, Hypertension Additional Medical History: Hx recent UTI, Hiatal Hernia, Hx Diverticulosis, Hx recent Diverticulitis/Pericolonic absess - Past Surgical History Surgical History: Abdominal Surgery, Bowel Resection, Cholecystectomy, Hysterectomy, Joint Replacement, Other - Family History Family Medical History: Cancer, Heart Failure, Hypertension - Social History Does patient currently use any type of tobacco product: No Have you used tobacco products in the last 12 months: No Type of Tobacco Use: None Does any household member use tobacco: No Alcohol Use: None Drug Use: None - Medications Home Medications: Furosemide [LASIX TAB 40 MG *] 1 tab PO DAILY 03/27/17 [History Confirmed ] Gi Cocktail [LEVSIN/Maalox/Lidoc Visc (GI COCKTAIL) *] 15 ml PO PRN PRN [History Confirmed 03/27/17] Metoclopramide HCl 1 tab PO BID 03/27/17 [History Confirmed 03/27/17] Omeprazole [PRILOSEC 20 MG *] 1 cap PO DAILY 03/27/17 [History Confirmed ] - Review of Systems Constitutional: Malaise, Other (loss of appetite) Eyes: No Symptoms Reported ENT: No Symptoms Reported Respiratory: Shortness of Breath Cardiovascular: Chest Pain (xiphoid pain ) Gastrointestinal: Abdominal Pain, Constipation Genitourinary: No Symptoms Reported Musculoskeletal: No Symptoms Reported Skin: No Symptoms Reported Neurological: No Symptoms Reported - Physical Exam Vital Signs: Temperature 98.3 F Pulse Rate [Left] 71 Pulse Rate 91 Respiratory Rate 20 Blood Pressure [Right Arm] 126/60 Blood Pressure [Left Arm] 132/83 Blood Pressure 165/95 O2 Sat by Pulse Oximetry 95 Oriented: Normal Eyes: Normal Ear: Normal Nose: Normal Throat: Normal Respiratory: Clear Throughout Cardiovascular: Normal : Normal Auscultation: Bowel Sounds: Normal Tenderness: RUQ, Epigastric, Moderate, Guarding. negative: Rebound, Rigidity Skin: Normal Musculoskeletal: Normal Psychiatric: Normal Mood Description: Calm Affect: Normal Speech Pattern: Clear - Assessment/Plan (1) Chest pain, rule out acute myocardial infarction Status: Acute Plan: serial cardiac enzymes and ekg, telemetry, supplemental oxygen, continue to monitor (2) UTI (urinary tract infection) Qualifiers: Urinary tract infection type: acute cystitis Hematuria presence: without hematuria Qualified Code(s): N30.00 - Acute cystitis without hematuria Status: Acute Plan: cipro 400mg iv q12h, continue to monitor
[2017-03-28] MEDS: DILAUDID PO PRN ×4 (04:55→23:32)
[2017-03-28] MEDS: LEVSIN/MAALOX/LIDOC VISC PO PRN ×3 (04:56→16:00)
[2017-03-28] MEDS ORDERED: DILAUDID PO ONE ×4 (04:58→23:28)
[2017-03-28] MEDS: NS 1000 ML 1,000 ML IV SCH ×2 (05:58→20:25)
[2017-03-28 06:21] LABS: BASOPHILS % (AUTO) 0.5 % (0.2-1.0); EOSINOPHILS # (AUTO) 0.1 x10^3/uL (0.0-0.2); EOSINOPHILS % (AUTO) 1.6 % (0.9-2.9); HEMATOCRIT 35.4 % (36.0-47.0); HEMOGLOBIN 12.1 g/dL (12.0-16.0); LYMPHOCYTES # (AUTO) 1.9 X10^3/uL (1.3-2.9); LYMPHOCYTES % (AUTO) 21.8 % (21.0-51.0); MEAN CORPUSCULAR HEMOGLOBIN 31.6 pg (27.0-34.0); MEAN CORPUSCULAR HGB CONC 34.2 g/dL (33.0-35.0); MEAN CORPUSCULAR VOLUME 92.5 fL (80.0-100.0); MEAN PLATELET VOLUME 8.8 fL (7.4-11.0); MONOCYTES # (AUTO) 0.9 x10^3/uL (0.3-0.8); NEUTROPHILS # (AUTO) 5.6 x10^3/uL (2.2-4.8); NEUTROPHILS % (AUTO) 65.1 % (42.0-75.0); PLATELET COUNT 176 X10^3/uL (150.0-450.0); RED BLOOD COUNT 3.82 X10^6/uL (3.5-5.4); RED CELL DISTRIBUTION WIDTH 12.8 % (11.6-16.5); WHITE BLOOD COUNT 8.5 X10^3/uL (3.6-10.0)
[2017-03-28 06:46] LABS: ALANINE AMINOTRANSFERASE 17 Units/L (12-78); ALBUMIN 2.9 g/dL (3.4-5.0); ALKALINE PHOSPHATASE 82 Units/L (46-116); ASPARTATE AMINO TRANSFERASE 18 Units/L (15-37); BLOOD UREA NITROGEN 15 mg/dL (7-18); CALCIUM 9.1 mg/dL (8.5-10.1); CHLORIDE 96 mmol/L (98-107); COR NA(FOR HYPERGLY) 134 mmol/L (136-145); CREATININE 1.06 mg/dL (0.55-1.02); SODIUM 134 mmol/L (136-145); eGFR BLACK RACES > 60 (>60); eGFR NON BLACK RACES 52 (>60)
[2017-03-28] MEDS ORDERED: NORVASC TAB 2.5 MG ONE (09:34)
[2017-03-28] MEDS: MICRO K EXTEN CAP 10 MEQ PO SCH ×2 (09:53→21:49)
[2017-03-28] MEDS: NORVASC TAB 2.5 MG PO SCH (09:53)
[2017-03-28] MEDS: LASIX PO SCH (09:53)
[2017-03-28] MEDS: REGLAN TAB 10 MG PO SCH ×2 (09:53→21:49)
[2017-03-28] MEDS: LOTENSIN TAB 10 MG PO SCH ×2 (09:53→21:49)
[2017-03-28] MEDS: PriLOSEC PO SCH (09:53)
[2017-03-28] MEDS: CIPRO IV 400 MG PREMIX* 400 MG/200 ML IV.SOLN. IV SCH ×3 (09:54→20:25)
[2017-03-28] MEDS: TOPROL XL PO SCH ×2 (09:54→21:49)
[2017-03-28] MEDS: PROTONIX INJ 40 MG VIAL IVP SCH (09:54)
[2017-03-28] MEDS: LOVENOX INJ 40 MG SYR SC SCH (10:21)
[2017-03-28] MEDS: PEPCID 20 MG IV PREMIX* 20 MG/50 ML BAG IV SCH ×2 (10:50→20:26)
--- NOTE | 2017-03-28 19:46 | PCM.PROG ---
Progress Note - Progress Note for Day of Date: 03/27/17 - Subjective Subjective: WAS ADMITTED FOR A URINARY TRACT INFECTION AND CHEST PAIN R/O ACUTE CT. TODAY, SHE IS ALERT AND ORIENTED, SITTING UP IN CHAIR ON MORNING ROUNDS. PATIENTS DAUGHTER IS AT BEDSIDE. TODAY, SHE IS NOTED WITH COMPLAINTS OF DIFFUSE ABDOMINAL PAIN. SHE REPORTS THAT PAIN IS LOCATED IN THE RUQ. SHE ALSO REPORTS NAUSEA. ON EXAMINATION, HEART IS REGULAR IN RATE AND RHYTHM. BILATERAL LUNGS ARE CLEAR TO AUSCULTATION. ABDOMEN IS ROUND, SOFT, AND NOTED WITH TENDERNESS TO THE RUQ. BOWEL SOUNDS ARE NORMAL IN ALL QUADRANTS. THERE IS NORMAL RANGE OF MOTION NOTED TO ALL EXTREMITIES. HER VITAL SIGNS THIS MORNING ARE 97.6-86-20-96%-132/83. LABS WERE OBTAINED TODAY. ABNORMAL LAB VALUES INCLUDE THE FOLLOWING: SODIUM 135, CHLORIDE 97, BUN 21, CREATININE 1.07, GFR 52, ALBUMIN 3.1. CARDIAC ENZYMES HAVE BEEN WITHIN NORMAL LIMITS. MOST RECENT EKG REPORTS SINUS RHYTHM WITH HR IN THE 70s. ABD/PELVIS CT FROM YESTERDAY REPORTED STABLE INTRATHORACID STOMACH WITH MILD FLUID DISTENTION OF SEVERAL LOOPS OF MILD AND LOWER SMALL BOWEL INCLUDING LOOPS OF BOWEL WITHIN THE LARGE LOWER ANTERIOR ABDOMINAL WALL HERNIA/PANNUS LIKELY REPRESENTS AN ENTERITIS OR ILEUS THERE IS NO EVIDENCE OF OBSTRUCTION. TODAY, WE WILL START CIPRO 400MG IV Q12H. OTHERWISE, WE WILL CONTINUE WITH CURRENT PLAN OF CARE. WE PLAN TO FOLLOW UP WITH AM LABS AND CONTINUE TO MONTIOR PATIENT. - Past Medical Family Social History Allergies: Allergies morphine Allergy (Verified 10/15/16 19:44) - Review of Systems ROS: No change since H&P - Vital Signs and I&O's Vital Signs: Temperature 98.5 F Pulse Rate [Left] 82 Pulse Rate 91 Respiratory Rate 20 Blood Pressure [Right Arm] 136/65 Blood Pressure [Left Arm] 132/83 Blood Pressure 165/95 O2 Sat by Pulse Oximetry 93 Intake and Output: Intake & Output 03/26/17 03/27/17 03/28/17 03/29/17 11:59 11:59 11:59 11:59 Intake Total 0 1140 270 Output Total 500 Balance 0 640 270 - Physical Exam Oriented: Normal Eyes: Normal Ear: Normal Nose: Normal Throat: Normal Respiratory: Normal Cardiovascular: Normal : Normal Auscultation: Bowel Sounds: Normal Palpation: Normal Tenderness: RUQ, Epigastric, Moderate, Guarding. negative: Rebound, Rigidity Skin: Normal Musculoskeletal: Normal Psychiatric: Normal Mood Description: Calm Affect: Normal Speech Pattern: Clear, Appropriate - Laboratory and Diagnostics Result Diagrams: 03/28/17 05:46 03/28/17 05:46 Labs: 03/26/17 19:01 Urine,Clean Catch Urine Culture - Final Escherichia Coli Proteus Mirabilis Laboratory WBC 8.5 X10^3/uL (3.6-10.0) 03/28/17 05:46 RBC 3.82 X10^6/uL (3.5-5.4) 03/28/17 05:46 Hgb 12.1 g/dL (12.0-16.0) 03/28/17 05:46 Hct 35.4 % (36.0-47.0) L 03/28/17 05:46 MCV 92.5 fL (80.0-100.0) 03/28/17 05:46 MCH 31.6 pg (27.0-34.0) 03/28/17 05:46 MCHC 34.2 g/dL (33.0-35.0) 03/28/17 05:46 RDW 12.8 % (11.6-16.5) 03/28/17 05:46 Plt Count 176 X10^3/uL (150.0-450.0) 03/28/17 05:46 MPV 8.8 fL (7.4-11.0) 03/28/17 05:46 Neut % 65.1 % (42.0-75.0) 03/28/17 05:46 Lymph % 21.8 % (21.0-51.0) 03/28/17 05:46 [place] % 11.0 % (0.0-13.0) 03/28/17 05:46 Eos % 1.6 % (0.9-2.9) 03/28/17 05:46 Baso % 0.5 % (0.2-1.0) 03/28/17 05:46 Neut # 5.6 x10^3/uL (2.2-4.8) H 03/28/17 05:46 Lymph # 1.9 X10^3/uL (1.3-2.9) 03/28/17 05:46 [place] # 0.9 x10^3/uL (0.3-0.8) H 03/28/17 05:46 Eos # 0.1 x10^3/uL (0.0-0.2) 03/28/17 05:46 Baso # 0.0 X10^3/uL (0.0-0.1) 03/28/17 05:46 Absolute Nucleated RBC 0.0 /100WBC 03/28/17 05:46 INR Target Range - 03/26/17 19:15 INR 1.03 (0.8-1.3) 03/26/17 19:15 PTT 37.3 SECONDS (22.9-36.5) H 03/26/17 19:15 PTT Comment - 03/26/17 19:15 Sample Site Right brachial 03/26/17 18:20 ABG pH 7.420 (7.35-7.45) 03/26/17 18:20 ABG pCO2 43.0 mmHg (35.0-45.0) 03/26/17 18:20 ABG pO2 84.0 mmHg (80.0-100.0) 03/26/17 18:20 ABG HCO3 27.9 mmol/L (22-26) H 03/26/17 18:20 ABG O2 Saturation 96.0 % (90-100) 03/26/17 18:20 ABG Base Excess 3.0 mmol/L (-2.0-2.0) H 03/26/17 18:20 Zoran Test Na 03/26/17 18:20 A-a Gradient 12.0 mmHg 03/26/17 18:20 FiO2 21.000 03/26/17 18:20 Blood Gas Comments Evangelina well aw 03/26/17 18:20 Sodium 134 mmol/L (136-145) L 03/28/17 05:46 Corrected Sodium 134 mmol/L (136-145) L 03/28/17 05:46 Potassium 3.9 mmol/L (3.5-5.1) 03/28/17 05:46 Chloride 96 mmol/L (98-107) L 03/28/17 05:46 Carbon Dioxide 28.0 mmol/L (21-32) 03/28/17 05:46 BUN 15 mg/dL (7-18) 03/28/17 05:46 Creatinine 1.06 mg/dL (0.55-1.02) H 03/28/17 05:46 Est GFR (MDRD) Af Amer > 60 (>60) 03/28/17 05:46 Est GFR (MDRD) Non-Af 52 (>60) L 03/28/17 05:46 Glucose 119 mg/dL (65-99) H 03/28/17 05:46 Calcium 9.1 mg/dL (8.5-10.1) 03/28/17 05:46 Corrected Calcium 10.0 mg/dL (8.5-10.1) 03/28/17 05:46 Magnesium 1.6 mg/dL (1.7-2.9) L 03/26/17 19:15 Total Bilirubin 0.50 mg/dL (0.2-1.0) 03/28/17 05:46 AST 18 Units/L (15-37) 03/28/17 05:46 ALT 17 Units/L (12-78) 03/28/17 05:46 Alkaline Phosphatase 82 Units/L (46-116) 03/28/17 05:46 Creatine Kinase 76 Units/L (26-192) 03/27/17 11:40 CK-MB (CK-2) 1.4 ng/mL (0-4.0) 03/27/17 11:40 CK/CKMB % Calc 1.8 % (<4) 03/27/17 11:40 Troponin I 0.02 ng/mL (0-1.5) 03/27/17 11:40 Total Protein 7.0 g/dL (6.4-8.2) 03/28/17 05:46 Albumin 2.9 g/dL (3.4-5.0) L 03/28/17 05:46 Globulin 4.1 g/dL (2.5-4.5) 03/28/17 05:46 Albumin/Globulin Ratio 0.7 Ratio (1.1-2.1) L 03/28/17 05:46 Triglycerides 68 mg/dL (0-150) 03/27/17 05:36 Cholesterol 189 mg/dL (0-200) 03/27/17 05:36 LDL Cholesterol, Calc 123 mg/dL (0-100) H 03/27/17 05:36 HDL Cholesterol 52 mg/dL (40-60) 03/27/17 05:36 Cholesterol/HDL Ratio 3.6 (0.0-5.0) 03/27/17 05:36 Specimen Type Clean catch urine 03/26/17 19:01 Urine Color Yellow (YELLOW) 03/26/17 19:01 Urine Appearance Clear (CLEAR) 03/26/17 19:01 Urine pH 6.5 (5.0 - 8.0) 03/26/17 19:01 Ur Specific [place] 1.010 (1.000-1.030) 03/26/17 19:01 Urine Protein 1+ (NEGATIVE) 03/26/17 19:01 Urine Glucose (UA) Negative (NEGATIVE) 03/26/17 19:01 Urine Ketones Negative (NEGATIVE) 03/26/17 19:01 Urine Occult Blood 1+ (NEGATIVE) 03/26/17 19:01 Urine Nitrite Negative (NEGATIVE) 03/26/17 19:01 Urine Bilirubin Negative (NEGATIVE) 03/26/17 19:01 Urine Urobilinogen Normal (NORMAL) 03/26/17 19:01 Ur Leukocyte Esterase 3+ (NEGATIVE) 03/26/17 19:01 Urine RBC 01 - 03 /HPF (NEGATIVE) 03/26/17 19:01 Urine WBC 10 - 15 /HPF (NEGATIVE) 03/26/17 19:01 Ur Squamous Epith Cells Few /HPF (NEGATIVE) 03/26/17 19:01 Amorphous Sediment Trace /HPF (NEGATIVE) 03/26/17 19:01 Urine Bacteria Trace /HPF (NEGATIVE) 03/26/17 19:01 Hyaline Casts Rare /LPF (NEGATIVE) 03/26/17 19:01 Ur Culture Indicated? Yes/culture set up 03/26/17 19:01 - Plan (1) Chest pain, rule out acute myocardial infarction Status: Acute Plan: serial cardiac enzymes and ekg, telemetry, supplemental oxygen, continue to monitor (2) UTI (urinary tract infection) Status: Acute Qualifiers: Urinary tract infection type: acute cystitis Hematuria presence: without hematuria Qualified Code(s): N30.00 - Acute cystitis without hematuria Plan: cipro 400mg iv q12h, continue to monitor (3) Ileus Status: Acute Plan: CIPRO 400MG IV Q12H, CONTINUE TO MONITOR
[2017-03-28] MEDS ORDERED: CIPRO TAB 500 MG PO ONE (20:27)
[2017-03-28] MEDS ORDERED: PEPCID TAB 20 MG PO ONE (21:00)
[2017-03-28] MEDS ORDERED: ZANAFLEX PO SCH (21:00)
--- NOTE | 2017-03-28 21:26 | PCM.PROG ---
Progress Note - Progress Note for Day of Date: 03/28/17 - Subjective Subjective: WAS ADMITTED FOR A URINARY TRACT INFECTION AND CHEST PAIN R/O ACUTE VT. TODAY, SHE IS ALERT AND ORIENTED, SITTING UP IN CHAIR ON MORNING ROUNDS. PATIENTS DAUGHTER IS AT BEDSIDE. TODAY, SHE CONTINUES WITH NAUSEA, RUQ PAIN, AND HEAD AND NECK PAIN. SHE DENIES CHEST PAIN OR SHORTNESS OF BREATH. ON EXAMINATION, HEART IS REGULAR IN RATE AND RHYTHM. BILATERAL LUNGS ARE CLEAR TO AUSCULTATION. ABDOMEN IS ROUND, SOFT, AND NOTED WITH TENDERNESS TO THE RUQ. BOWEL SOUNDS ARE NORMAL IN ALL QUADRANTS. THERE IS NORMAL RANGE OF MOTION NOTED TO ALL EXTREMITIES. HER VITAL SIGNS THIS MORNING ARE 98.5-78-18-96% -126/58. LABS WERE OBTAINED TODAY. ABNORMAL LAB VALUES INCLUDE THE FOLLOWING: HCT 35.4, SODIUM 134, CHLORIDE 96, CREATININE 1.06, GLUCOSE 119, ALBUMIN 2.9. SHE CONTINUES ON CIPRO 400MG IV Q12H FOR ILEUS. TODAY, WE WILL START FIORCET 1 TABLET Q6H PRN PAIN, ZANAFLEX 4MG PO HS FOR NECK PAIN, AND PEPCID 20MG IV Q12H. OTHERWISE, WE WILL CONTINUE WITH CURRENT PLAN OF CARE. WE PLAN TO FOLLOW UP WITH AM LABS AND CONTINUE TO MONTIOR PATIENT. - Past Medical Family Social History Past Med/Fam/Surg Hx: No changes since H&P Allergies: Allergies morphine Allergy (Verified 10/15/16 19:44) - Review of Systems ROS: No change since H&P - Vital Signs and I&O's Vital Signs: Temperature 98.6 F Pulse Rate [Left] 84 Pulse Rate 91 Respiratory Rate 18 Blood Pressure [Right Arm] 102/50 Blood Pressure [Left Arm] 132/83 Blood Pressure 165/95 O2 Sat by Pulse Oximetry 95 Intake and Output: Intake & Output 03/26/17 03/27/17 03/28/17 03/29/17 11:59 11:59 11:59 11:59 Intake Total 0 1140 270 Output Total 500 Balance 0 640 270 - Physical Exam Oriented: Normal Eyes: Normal Ear: Normal Nose: Normal Throat: Normal Respiratory: Normal Cardiovascular: Normal : Normal Auscultation: Bowel Sounds: Normal Palpation: Normal Tenderness: RUQ, Epigastric, Moderate, Guarding. negative: Rebound, Rigidity Skin: Normal Musculoskeletal: Normal Psychiatric: Normal Mood Description: Calm Affect: Normal Speech Pattern: Clear, Appropriate - Laboratory and Diagnostics Result Diagrams: 03/28/17 05:46 03/28/17 05:46 Labs: 03/26/17 19:01 Urine,Clean Catch Urine Culture - Final Escherichia Coli Proteus [facility]abil[facility] Laboratory WBC 8.5 X10^3/uL (3.6-10.0) 03/28/17 05:46 RBC 3.82 X10^6/uL (3.5-5.4) 03/28/17 05:46 Hgb 12.1 g/dL (12.0-16.0) 03/28/17 05:46 Hct 35.4 % (36.0-47.0) L 03/28/17 05:46 MCV 92.5 fL (80.0-100.0) 03/28/17 05:46 MCH 31.6 pg (27.0-34.0) 03/28/17 05:46 MCHC 34.2 g/dL (33.0-35.0) 03/28/17 05:46 RDW 12.8 % (11.6-16.5) 03/28/17 05:46 Plt Count 176 X10^3/uL (150.0-450.0) 03/28/17 05:46 MPV 8.8 fL (7.4-11.0) 03/28/17 05:46 Neut % 65.1 % (42.0-75.0) 03/28/17 05:46 Lymph % 21.8 % (21.0-51.0) 03/28/17 05:46 [place] % 11.0 % (0.0-13.0) 03/28/17 05:46 Eos % 1.6 % (0.9-2.9) 03/28/17 05:46 Baso % 0.5 % (0.2-1.0) 03/28/17 05:46 Neut # 5.6 x10^3/uL (2.2-4.8) H 03/28/17 05:46 Lymph # 1.9 X10^3/uL (1.3-2.9) 03/28/17 05:46 [place] # 0.9 x10^3/uL (0.3-0.8) H 03/28/17 05:46 Eos # 0.1 x10^3/uL (0.0-0.2) 03/28/17 05:46 Baso # 0.0 X10^3/uL (0.0-0.1) 03/28/17 05:46 Absolute Nucleated RBC 0.0 /100WBC 03/28/17 05:46 INR Target Range - 03/26/17 19:15 INR 1.03 (0.8-1.3) 03/26/17 19:15 PTT 37.3 SECONDS (22.9-36.5) H 03/26/17 19:15 PTT Comment - 03/26/17 19:15 Sample Site Right brachial 03/26/17 18:20 ABG pH 7.420 (7.35-7.45) 03/26/17 18:20 ABG pCO2 43.0 mmHg (35.0-45.0) 03/26/17 18:20 ABG pO2 84.0 mmHg (80.0-100.0) 03/26/17 18:20 ABG HCO3 27.9 mmol/L (22-26) H 03/26/17 18:20 ABG O2 Saturation 96.0 % (90-100) 03/26/17 18:20 ABG Base Excess 3.0 mmol/L (-2.0-2.0) H 03/26/17 18:20 Zoran Test Na 03/26/17 18:20 A-a Gradient 12.0 mmHg 03/26/17 18:20 FiO2 21.000 03/26/17 18:20 Blood Gas Comments Evangelina well aw 03/26/17 18:20 Sodium 134 mmol/L (136-145) L 03/28/17 05:46 Corrected Sodium 134 mmol/L (136-145) L 03/28/17 05:46 Potassium 3.9 mmol/L (3.5-5.1) 03/28/17 05:46 Chloride 96 mmol/L (98-107) L 03/28/17 05:46 Carbon Dioxide 28.0 mmol/L (21-32) 03/28/17 05:46 BUN 15 mg/dL (7-18) 03/28/17 05:46 Creatinine 1.06 mg/dL (0.55-1.02) H 03/28/17 05:46 Est GFR (MDRD) Af Amer > 60 (>60) 03/28/17 05:46 Est GFR (MDRD) Non-Af 52 (>60) L 03/28/17 05:46 Glucose 119 mg/dL (65-99) H 03/28/17 05:46 Calcium 9.1 mg/dL (8.5-10.1) 03/28/17 05:46 Corrected Calcium 10.0 mg/dL (8.5-10.1) 03/28/17 05:46 Magnesium 1.6 mg/dL (1.7-2.9) L 03/26/17 19:15 Total Bilirubin 0.50 mg/dL (0.2-1.0) 03/28/17 05:46 AST 18 Units/L (15-37) 03/28/17 05:46 ALT 17 Units/L (12-78) 03/28/17 05:46 Alkaline Phosphatase 82 Units/L (46-116) 03/28/17 05:46 Creatine Kinase 76 Units/L (26-192) 03/27/17 11:40 CK-MB (CK-2) 1.4 ng/mL (0-4.0) 03/27/17 11:40 CK/CKMB % Calc 1.8 % (<4) 03/27/17 11:40 Troponin I 0.02 ng/mL (0-1.5) 03/27/17 11:40 Total Protein 7.0 g/dL (6.4-8.2) 03/28/17 05:46 Albumin 2.9 g/dL (3.4-5.0) L 03/28/17 05:46 Globulin 4.1 g/dL (2.5-4.5) 03/28/17 05:46 Albumin/Globulin Ratio 0.7 Ratio (1.1-2.1) L 03/28/17 05:46 Triglycerides 68 mg/dL (0-150) 03/27/17 05:36 Cholesterol 189 mg/dL (0-200) 03/27/17 05:36 LDL Cholesterol, Calc 123 mg/dL (0-100) H 03/27/17 05:36 HDL Cholesterol 52 mg/dL (40-60) 03/27/17 05:36 Cholesterol/HDL Ratio 3.6 (0.0-5.0) 03/27/17 05:36 Specimen Type Clean catch urine 03/26/17 19:01 Urine Color Yellow (YELLOW) 03/26/17 19:01 Urine Appearance Clear (CLEAR) 03/26/17 19:01 Urine pH 6.5 (5.0 - 8.0) 03/26/17 19:01 Ur Specific [place] 1.010 (1.000-1.030) 03/26/17 19:01 Urine Protein 1+ (NEGATIVE) 03/26/17 19:01 Urine Glucose (UA) Negative (NEGATIVE) 03/26/17 19:01 Urine Ketones Negative (NEGATIVE) 03/26/17 19:01 Urine Occult Blood 1+ (NEGATIVE) 03/26/17 19:01 Urine Nitrite Negative (NEGATIVE) 03/26/17 19:01 Urine Bilirubin Negative (NEGATIVE) 03/26/17 19:01 Urine Urobilinogen Normal (NORMAL) 03/26/17 19:01 Ur Leukocyte Esterase 3+ (NEGATIVE) 03/26/17 19:01 Urine RBC 01 - 03 /HPF (NEGATIVE) 03/26/17 19:01 Urine WBC 10 - 15 /HPF (NEGATIVE) 03/26/17 19:01 Ur Squamous Epith Cells Few /HPF (NEGATIVE) 03/26/17 19:01 Amorphous Sediment Trace /HPF (NEGATIVE) 03/26/17 19:01 Urine Bacteria Trace /HPF (NEGATIVE) 03/26/17 19:01 Hyaline Casts Rare /LPF (NEGATIVE) 03/26/17 19:01 Ur Culture Indicated? Yes/culture set up 03/26/17 19:01 - Plan (1) Chest pain, rule out acute myocardial infarction Status: Acute Plan: serial cardiac enzymes and ekg, telemetry, supplemental oxygen, continue to monitor (2) UTI (urinary tract infection) Status: Acute Qualifiers: Urinary tract infection type: acute cystitis Hematuria presence: without hematuria Qualified Code(s): N30.00 - Acute cystitis without hematuria Plan: cipro 400mg iv q12h, continue to monitor (3) Ileus Status: Acute Plan: CIPRO 400MG IV Q12H, CONTINUE TO MONITOR (4) Headache Status: Acute Qualifiers: Headache type: unspecified Headache chronicity pattern: acute headache Intractability: not intractable Qualified Code(s): R51 - Headache Plan: FIORICET 1TAB Q6H PRN PAIN, ZANAFLEX 4MG PO HS, CONTINUE TO MONITOR
[2017-03-28] MEDS: FIORICET TAB PO PRN (21:47)
[2017-03-29] MEDS: LEVSIN/MAALOX/LIDOC VISC PO PRN ×3 (00:23→16:45)
[2017-03-29] MEDS ORDERED: DILAUDID PO ONE ×4 (04:47→22:54)
[2017-03-29] MEDS: NS 1000 ML 1,000 ML IV SCH ×2 (05:17→22:36)
[2017-03-29] MEDS: DILAUDID PO PRN ×3 (05:17→16:45)
[2017-03-29 06:20] LABS: BASOPHILS % (AUTO) 0.6 % (0.2-1.0); EOSINOPHILS # (AUTO) 0.1 x10^3/uL (0.0-0.2); EOSINOPHILS % (AUTO) 1.9 % (0.9-2.9); HEMATOCRIT 34.4 % (36.0-47.0); HEMOGLOBIN 11.8 g/dL (12.0-16.0); LYMPHOCYTES # (AUTO) 0.8 X10^3/uL (1.3-2.9); LYMPHOCYTES % (AUTO) 12.7 % (21.0-51.0); MEAN CORPUSCULAR HEMOGLOBIN 31.8 pg (27.0-34.0); MEAN CORPUSCULAR HGB CONC 34.3 g/dL (33.0-35.0); MEAN CORPUSCULAR VOLUME 92.7 fL (80.0-100.0); MEAN PLATELET VOLUME 9.5 fL (7.4-11.0); MONOCYTES # (AUTO) 0.8 x10^3/uL (0.3-0.8); MONOCYTES % (AUTO) 11.9 % (0.0-13.0); NEUTROPHILS # (AUTO) 4.8 x10^3/uL (2.2-4.8); NEUTROPHILS % (AUTO) 72.9 % (42.0-75.0); PLATELET COUNT 149 X10^3/uL (150.0-450.0); RED BLOOD COUNT 3.71 X10^6/uL (3.5-5.4); RED CELL DISTRIBUTION WIDTH 12.8 % (11.6-16.5); WHITE BLOOD COUNT 6.6 X10^3/uL (3.6-10.0)
[2017-03-29 07:00] LABS: ALBUMIN 2.9 g/dL (3.4-5.0); CARBON DIOXIDE 25.7 mmol/L (21-32); COR CA(FOR HYPOALB) 9.9 mg/dL (8.5-10.1); CREATININE 1.35 mg/dL (0.55-1.02); TOTAL PROTEIN 6.7 g/dL (6.4-8.2)
[2017-03-29] MEDS: LOTENSIN TAB 10 MG PO SCH ×2 (08:07→22:36)
[2017-03-29] MEDS: CIPRO IV 400 MG PREMIX* 400 MG/200 ML IV.SOLN. IV SCH (08:07)
[2017-03-29] MEDS: LASIX PO SCH (08:07)
[2017-03-29] MEDS: NORVASC TAB 2.5 MG PO SCH (08:07)
[2017-03-29] MEDS: MICRO K EXTEN CAP 10 MEQ PO SCH ×2 (08:07→22:36)
[2017-03-29] MEDS: PEPCID 20 MG IV PREMIX* 20 MG/50 ML BAG IV SCH ×2 (08:08→22:36)
[2017-03-29] MEDS: PROTONIX INJ 40 MG VIAL IVP SCH (08:08)
[2017-03-29] MEDS: PriLOSEC PO SCH (08:08)
[2017-03-29] MEDS: TOPROL XL PO SCH ×2 (08:08→22:37)
[2017-03-29] MEDS: REGLAN TAB 10 MG PO SCH ×2 (08:08→22:36)
[2017-03-29] MEDS: LOVENOX INJ 40 MG SYR SC SCH (10:56)
[2017-03-29] MEDS: CIPRO TAB 500 MG PO SCH ×2 (10:57→22:36)
--- NOTE | 2017-03-29 11:00 | PCM.PROG ---
Progress Note - Progress Note for Day of Date: 03/29/17 - Subjective Subjective: WAS ADMITTED FOR A URINARY TRACT INFECTION AND CHEST PAIN R/O ACUTE OR. TODAY, SHE IS ALERT AND ORIENTED, SITTING UP IN CHAIR ON MORNING ROUNDS. PATIENTS SON IS AT BEDSIDE. TODAY, SHE CONTINUES WITH NAUSEA AND MILD RUQ PAIN. SHE REPORTS THAT IT HAS SLIGHTLY IMPROVED SINCE YESTERDAY. SHE REPORTS THAT HEAD AND NECK PAIN HAS IMPROVED SINCE STARTING THE FIORICET. PATIENTS SON REPORTS THAT SHE WAS CONFUSED AND HALLUCINATING THROUGHOUT THE NIGHT. THIS MAY BE RELATED TO THE ZANAFLEX THAT WE STARTED AT BEDTIME. ON EXAMINATION, HEART IS REGULAR IN RATE AND RHYTHM. BILATERAL LUNGS ARE CLEAR TO AUSCULTATION. ABDOMEN IS ROUND, SOFT, AND NOTED WITH MILD TENDERNESS TO THE RUQ. BOWEL SOUNDS ARE NORMAL IN ALL QUADRANTS. THERE IS NORMAL RANGE OF MOTION NOTED TO ALL EXTREMITIES. HER VITAL SIGNS THIS MORNING ARE 98.4-86-24-97%-114/ 53. LABS WERE OBTAINED TODAY. ABNORMAL LAB VALUES INCLUDE THE FOLLOWING: HGB 11.8, HCT 34.4, SODIUM 132, CHLORIDE 96, CREATININE 1.35, GLUCOSE 116, ALBUMIN 2.9. SHE CONTINUES ON CIPRO 400MG IV Q12H FOR ILEUS. TODAY, WE WILL DISCONTINUE THE ZANAFLEX AND OBTAIN AN ABDOMINAL XRAY. OTHERWISE, WE WILL CONTINUE WITH CURRENT PLAN OF CARE. WE PLAN TO FOLLOW UP WITH AM LABS AND CONTINUE TO MONTIOR PATIENT. - Past Medical Family Social History Past Med/Fam/Surg Hx: No changes since H&P Allergies: Allergies morphine Allergy (Verified 10/15/16 19:44) - Review of Systems ROS: No change since H&P - Vital Signs and I&O's Vital Signs: Temperature 98.4 F Pulse Rate [Left] 86 Pulse Rate 91 Respiratory Rate 24 Blood Pressure [Right Arm] 114/53 Blood Pressure [Left Arm] 132/83 Blood Pressure 165/95 O2 Sat by Pulse Oximetry 97 Intake and Output: Intake & Output 03/26/17 03/27/17 03/28/17 03/29/17 11:59 11:59 11:59 11:59 Intake Total 0 1140 1090 Output Total 500 Balance 0 640 1090 - Physical Exam Oriented: Normal Eyes: Normal Ear: Normal Nose: Normal Throat: Normal Respiratory: Normal Cardiovascular: Normal : Normal Auscultation: Bowel Sounds: Normal Palpation: Normal Tenderness: RUQ, Moderate, Guarding. negative: Rebound, Rigidity Skin: Normal Musculoskeletal: Normal Psychiatric: Normal Mood Description: Calm Affect: Normal Speech Pattern: Clear, Appropriate - Laboratory and Diagnostics Result Diagrams: 03/29/17 05:23 03/29/17 05:23 Labs: 03/26/17 19:01 Urine,Clean Catch Urine Culture - Final Escherichia Coli Proteus [facility]abil[facility] Laboratory WBC 6.6 X10^3/uL (3.6-10.0) 03/29/17 05:23 RBC 3.71 X10^6/uL (3.5-5.4) 03/29/17 05:23 Hgb 11.8 g/dL (12.0-16.0) L 03/29/17 05:23 Hct 34.4 % (36.0-47.0) L 03/29/17 05:23 MCV 92.7 fL (80.0-100.0) 03/29/17 05:23 MCH 31.8 pg (27.0-34.0) 03/29/17 05:23 MCHC 34.3 g/dL (33.0-35.0) 03/29/17 05:23 RDW 12.8 % (11.6-16.5) 03/29/17 05:23 Plt Count 149 X10^3/uL (150.0-450.0) L 03/29/17 05:23 MPV 9.5 fL (7.4-11.0) 03/29/17 05:23 Neut % 72.9 % (42.0-75.0) 03/29/17 05:23 Lymph % 12.7 % (21.0-51.0) L 03/29/17 05:23 [place] % 11.9 % (0.0-13.0) 03/29/17 05:23 Eos % 1.9 % (0.9-2.9) 03/29/17 05:23 Baso % 0.6 % (0.2-1.0) 03/29/17 05:23 Neut # 4.8 x10^3/uL (2.2-4.8) 03/29/17 05:23 Lymph # 0.8 X10^3/uL (1.3-2.9) L 03/29/17 05:23 [place] # 0.8 x10^3/uL (0.3-0.8) 03/29/17 05:23 Eos # 0.1 x10^3/uL (0.0-0.2) 03/29/17 05:23 Baso # 0.0 X10^3/uL (0.0-0.1) 03/29/17 05:23 Absolute Nucleated RBC 0.0 /100WBC 03/29/17 05:23 INR Target Range - 03/26/17 19:15 INR 1.03 (0.8-1.3) 03/26/17 19:15 PTT 37.3 SECONDS (22.9-36.5) H 03/26/17 19:15 PTT Comment - 03/26/17 19:15 Sample Site Right brachial 03/26/17 18:20 ABG pH 7.420 (7.35-7.45) 03/26/17 18:20 ABG pCO2 43.0 mmHg (35.0-45.0) 03/26/17 18:20 ABG pO2 84.0 mmHg (80.0-100.0) 03/26/17 18:20 ABG HCO3 27.9 mmol/L (22-26) H 03/26/17 18:20 ABG O2 Saturation 96.0 % (90-100) 03/26/17 18:20 ABG Base Excess 3.0 mmol/L (-2.0-2.0) H 03/26/17 18:20 Zoran Test Na 03/26/17 18:20 A-a Gradient 12.0 mmHg 03/26/17 18:20 FiO2 21.000 03/26/17 18:20 Blood Gas Comments Evangelina well aw 03/26/17 18:20 Sodium 132 mmol/L (136-145) L 03/29/17 05:23 Corrected Sodium 132 mmol/L (136-145) L 03/29/17 05:23 Potassium 4.2 mmol/L (3.5-5.1) 03/29/17 05:23 Chloride 96 mmol/L (98-107) L 03/29/17 05:23 Carbon Dioxide 25.7 mmol/L (21-32) 03/29/17 05:23 BUN 16 mg/dL (7-18) 03/29/17 05:23 Creatinine 1.35 mg/dL (0.55-1.02) H 03/29/17 05:23 Est GFR (MDRD) Af Amer 48 (>60) L 03/29/17 05:23 Est GFR (MDRD) Non-Af 40 (>60) L 03/29/17 05:23 Glucose 116 mg/dL (65-99) H 03/29/17 05:23 Calcium 9.0 mg/dL (8.5-10.1) 03/29/17 05:23 Corrected Calcium 9.9 mg/dL (8.5-10.1) 03/29/17 05:23 Magnesium 1.6 mg/dL (1.7-2.9) L 03/26/17 19:15 Total Bilirubin 0.40 mg/dL (0.2-1.0) 03/29/17 05:23 AST 19 Units/L (15-37) 03/29/17 05:23 ALT 12 Units/L (12-78) 03/29/17 05:23 Alkaline Phosphatase 73 Units/L (46-116) 03/29/17 05:23 Creatine Kinase 76 Units/L (26-192) 03/27/17 11:40 CK-MB (CK-2) 1.4 ng/mL (0-4.0) 03/27/17 11:40 CK/CKMB % Calc 1.8 % (<4) 03/27/17 11:40 Troponin I 0.02 ng/mL (0-1.5) 03/27/17 11:40 Total Protein 6.7 g/dL (6.4-8.2) 03/29/17 05:23 Albumin 2.9 g/dL (3.4-5.0) L 03/29/17 05:23 Globulin 3.8 g/dL (2.5-4.5) 03/29/17 05:23 Albumin/Globulin Ratio 0.8 Ratio (1.1-2.1) L 03/29/17 05:23 Triglycerides 68 mg/dL (0-150) 03/27/17 05:36 Cholesterol 189 mg/dL (0-200) 03/27/17 05:36 LDL Cholesterol, Calc 123 mg/dL (0-100) H 03/27/17 05:36 HDL Cholesterol 52 mg/dL (40-60) 03/27/17 05:36 Cholesterol/HDL Ratio 3.6 (0.0-5.0) 03/27/17 05:36 Specimen Type Clean catch urine 03/26/17 19:01 Urine Color Yellow (YELLOW) 03/26/17 19:01 Urine Appearance Clear (CLEAR) 03/26/17 19:01 Urine pH 6.5 (5.0 - 8.0) 03/26/17 19:01 Ur Specific [place] 1.010 (1.000-1.030) 03/26/17 19:01 Urine Protein 1+ (NEGATIVE) 03/26/17 19:01 Urine Glucose (UA) Negative (NEGATIVE) 03/26/17 19:01 Urine Ketones Negative (NEGATIVE) 03/26/17 19:01 Urine Occult Blood 1+ (NEGATIVE) 03/26/17 19:01 Urine Nitrite Negative (NEGATIVE) 03/26/17 19:01 Urine Bilirubin Negative (NEGATIVE) 03/26/17 19:01 Urine Urobilinogen Normal (NORMAL) 03/26/17 19:01 Ur Leukocyte Esterase 3+ (NEGATIVE) 03/26/17 19:01 Urine RBC 01 - 03 /HPF (NEGATIVE) 03/26/17 19:01 Urine WBC 10 - 15 /HPF (NEGATIVE) 03/26/17 19:01 Ur Squamous Epith Cells Few /HPF (NEGATIVE) 03/26/17 19:01 Amorphous Sediment Trace /HPF (NEGATIVE) 03/26/17 19:01 Urine Bacteria Trace /HPF (NEGATIVE) 03/26/17 19:01 Hyaline Casts Rare /LPF (NEGATIVE) 03/26/17 19:01 Ur Culture Indicated? Yes/culture set up 03/26/17 19:01 - Plan (1) Chest pain, rule out acute myocardial infarction Status: Acute Plan: telemetry, supplemental oxygen, continue to monitor (2) UTI (urinary tract infection) Status: Acute Qualifiers: Urinary tract infection type: acute cystitis Hematuria presence: without hematuria Qualified Code(s): N30.00 - Acute cystitis without hematuria Plan: cipro 400mg iv q12h, continue to monitor (3) Ileus Status: Acute Plan: CIPRO 400MG IV Q12H, CONTINUE TO MONITOR (4) Headache Status: Acute Qualifiers: Headache type: unspecified Headache chronicity pattern: acute headache Intractability: not intractable Qualified Code(s): R51 - Headache Plan: FIORICET 1TAB Q6H PRN PAIN, CONTINUE TO MONITOR
[2017-03-29] MEDS: ROBITUSSIN DM PO SCH ×4 (12:30→22:37)
[2017-03-29] MEDS ORDERED: ROBITUSSIN DM PO SCH (13:00)
--- NOTE | 2017-03-29 13:59 | RAD ---
ACUTE ABDOMINAL SERIES CLINICAL HISTORY: 86-year-old female with abdominal pain and history of small bowel obstruction. COMPARISON: CT abdomen and pelvis 03/26/2017. FINDINGS: Chest radiograph demonstrates stable cardiomegaly with elevation of left hemidiaphragm and small bila teral effusions with low lung volumes. Multiple gas-filled loops of large and small bowel with scattered air-fluid levels on upright imaging . Gas and stool are seen throughout the colon. There is no small bowel distention. There is no radiog raphic evidence of pneumoperitoneum. Imaged osseous structures are intact. Soft tissues are unremarkable. IMPRESSION: 1. Cardiomegaly with small bilateral effusions. 2. Gas-filled loops of large and small bowel with air-fluid levels suggestive of at least partial bow el obstruction, likely related to ventral hernia as seen on CT of the abdomen and pelvis 03/26/2017. Reported By:
[2017-03-29] MEDS ORDERED: VISTARIL PO PRN (21:35)
[2017-03-29] MEDS: XANAX PO PRN (22:47)
[2017-03-30 06:33] LABS: BASOPHILS % (AUTO) 0.4 % (0.2-1.0); EOSINOPHILS # (AUTO) 0.1 x10^3/uL (0.0-0.2); EOSINOPHILS % (AUTO) 1.3 % (0.9-2.9); HEMATOCRIT 30.9 % (36.0-47.0); HEMOGLOBIN 10.3 g/dL (12.0-16.0); LYMPHOCYTES % (AUTO) 16.7 % (21.0-51.0); MEAN CORPUSCULAR HEMOGLOBIN 31.5 pg (27.0-34.0); MEAN CORPUSCULAR HGB CONC 33.3 g/dL (33.0-35.0); MEAN CORPUSCULAR VOLUME 94.5 fL (80.0-100.0); MEAN PLATELET VOLUME 9.4 fL (7.4-11.0); MONOCYTES # (AUTO) 1.3 x10^3/uL (0.3-0.8); NEUTROPHILS # (AUTO) 3.4 x10^3/uL (2.2-4.8); NEUTROPHILS % (AUTO) 58.6 % (42.0-75.0); PLATELET COUNT 127 X10^3/uL (150.0-450.0); RED BLOOD COUNT 3.27 X10^6/uL (3.5-5.4); RED CELL DISTRIBUTION WIDTH 12.6 % (11.6-16.5); WHITE BLOOD COUNT 5.8 X10^3/uL (3.6-10.0)
[2017-03-30 06:54] LABS: ALANINE AMINOTRANSFERASE 16 Units/L (12-78); ALBUMIN 2.5 g/dL (3.4-5.0); ALKALINE PHOSPHATASE 60 Units/L (46-116); ASPARTATE AMINO TRANSFERASE 28 Units/L (15-37); BLOOD UREA NITROGEN 17 mg/dL (7-18); CALCIUM 8.3 mg/dL (8.5-10.1); CARBON DIOXIDE 27.2 mmol/L (21-32); CHLORIDE 98 mmol/L (98-107); COR CA(FOR HYPOALB) 9.5 mg/dL (8.5-10.1); CREATININE 1.15 mg/dL (0.55-1.02); SODIUM 134 mmol/L (136-145); TOTAL PROTEIN 5.9 g/dL (6.4-8.2); eGFR BLACK RACES 58 (>60); eGFR NON BLACK RACES 48 (>60)
[2017-03-30 07:17] LABS: PLATELET MORPHOLOGY COMMENT NORMAL (NORMAL)
[2017-03-30] MEDS ORDERED: NORVASC TAB 2.5 MG ONE (08:32)
[2017-03-30] MEDS: MICRO K EXTEN CAP 10 MEQ PO SCH ×2 (10:21→21:00)
[2017-03-30] MEDS: CIPRO TAB 500 MG PO SCH (10:22)
[2017-03-30] MEDS: TOPROL XL PO SCH ×2 (10:22→21:00)
[2017-03-30] MEDS: PriLOSEC PO SCH (10:22)
[2017-03-30] MEDS: LOTENSIN TAB 10 MG PO SCH ×2 (10:22→21:00)
[2017-03-30] MEDS: LASIX PO SCH (10:22)
[2017-03-30] MEDS: PROTONIX INJ 40 MG VIAL IVP SCH ×2 (10:23→10:28)
[2017-03-30] MEDS: NS 1000 ML 1,000 ML IV SCH ×2 (10:26→23:25)
[2017-03-30] MEDS: NORVASC TAB 2.5 MG PO SCH (10:27)
[2017-03-30] MEDS: REGLAN TAB 10 MG PO SCH ×2 (10:28→23:25)
[2017-03-30] MEDS: ROBITUSSIN DM PO SCH ×4 (10:30→21:00)
[2017-03-30] MEDS: LOVENOX INJ 40 MG SYR SC SCH (10:34)
[2017-03-30] MEDS ORDERED: DILAUDID PO ONE ×2 (11:20→21:14)
[2017-03-30] MEDS: LEVSIN/MAALOX/LIDOC VISC PO PRN ×2 (11:26→22:00)
[2017-03-30] MEDS: PEPCID TAB 20 MG PO SCH (11:30)
[2017-03-30] MEDS: DILAUDID PO PRN ×2 (11:30→22:00)
--- NOTE | 2017-03-30 12:29 | PCM.PROG ---
Progress Note - Progress Note for Day of Date: 03/30/17 - Subjective Subjective: WAS ADMITTED FOR A URINARY TRACT INFECTION AND CHEST PAIN R/O ACUTE [place]. TODAY, SHE IS LYING IN BED WITH EYES CLOSED ON MORNING ROUNDS. SHE AWAKENS AND RESPONDS TO VERBAL STIMULI. PATIENTS DAUGHTER IS AT BEDSIDE. TODAY, SHE CONTINUES WITH RUQ PAIN. SHE AGAIN REPORTS THAT IT HAS SLIGHTLY IMPROVED SINCE YESTERDAY. SHE DENIES HEADACHE OR NECK PAIN THIS MORNING. DAUGHTER REPORTS THAT CONFUSION HAS IMPROVED SINCE DISCONTINUING THE ZANAFLEX. ON EXAMINATION, HEART IS REGULAR IN RATE AND RHYTHM. BILATERAL LUNGS ARE CLEAR TO AUSCULTATION. ABDOMEN IS ROUND, SOFT, AND NOTED WITH MILD TENDERNESS TO THE RUQ. BOWEL SOUNDS ARE NORMAL IN ALL QUADRANTS. THERE IS NORMAL RANGE OF MOTION NOTED TO ALL EXTREMITIES. HER VITAL SIGNS THIS MORNING ARE 98.3-77-22-100%-124/60. LABS WERE OBTAINED TODAY. ABNORMAL LAB VALUES INCLUDE THE FOLLOWING: RBC 3.27, HGB 10.3, HCT 30.9, SODIUM 134, CREATININE 1.15 , GFR 48, GLUCOSE 103, CALCIUM 8.3, TOTAL PROTEIN 5.9, ALBUMIN 2.5. WE OBTAINED AN ABDOMINAL ULTRASOUND YESTERDAY. IT REPORTED CARDIOMEGALY WITH SMALL BILATERAL EFFUSIONS. ALEX FILLED LOOPS OF LARGE AND SMALL BOWEL WITH AIR-FLUID LEVELS SUGGESTIVE OF AT LEAST PARTIAL BOWEL OBSTRUCTION, LIKELY RELATED TO VENTRAL HERNIA. SHE CONTINUES ON CIPRO 400MG IV Q12H FOR ILEUS. OTHERWISE, WE WILL CONTINUE WITH CURRENT PLAN OF CARE. WE PLAN TO FOLLOW UP WITH AM LABS AND KUB AND CONTINUE TO MONTIOR PATIENT. - Past Medical Family Social History Past Med/Fam/Surg Hx: No changes since H&P Allergies: Allergies morphine Allergy (Verified 10/15/16 19:44) - Review of Systems ROS: No change since H&P - Vital Signs and I&O's Vital Signs: Temperature 98.3 F Pulse Rate [Left] 77 Pulse Rate 91 Respiratory Rate 22 Blood Pressure [Right Arm] 124/60 Blood Pressure [Left Arm] 132/83 Blood Pressure 165/95 O2 Sat by Pulse Oximetry 100 Intake and Output: Intake & Output 03/28/17 03/29/17 03/30/17 03/31/17 11:59 11:59 11:59 11:59 Intake Total 1140 1090 240 Output Total 500 200 Balance 640 1090 40 - Physical Exam Oriented: Normal Eyes: Normal Ear: Normal Nose: Normal Throat: Normal Respiratory: Normal Cardiovascular: Normal : Normal Auscultation: Bowel Sounds: Normal Palpation: Normal Tenderness: RUQ, Moderate, Guarding. negative: Rebound, Rigidity Skin: Normal Musculoskeletal: Normal Psychiatric: Normal Mood Description: Calm Affect: Normal Speech Pattern: Clear, Appropriate - Laboratory and Diagnostics Result Diagrams: 03/30/17 05:18 03/30/17 05:18 Labs: 03/26/17 19:01 Urine,Clean Catch Urine Culture - Final Escherichia Coli Proteus Mirabil[facility] Laboratory WBC 5.8 X10^3/uL (3.6-10.0) 03/30/17 05:18 RBC 3.27 X10^6/uL (3.5-5.4) L 03/30/17 05:18 Hgb 10.3 g/dL (12.0-16.0) L 03/30/17 05:18 Hct 30.9 % (36.0-47.0) L 03/30/17 05:18 MCV 94.5 fL (80.0-100.0) 03/30/17 05:18 MCH 31.5 pg (27.0-34.0) 03/30/17 05:18 MCHC 33.3 g/dL (33.0-35.0) 03/30/17 05:18 RDW 12.6 % (11.6-16.5) 03/30/17 05:18 Plt Count 127 X10^3/uL (150.0-450.0) L 03/30/17 05:18 Plt Count Comment Adequate (ADEQUATE) 03/30/17 05:18 MPV 9.4 fL (7.4-11.0) 03/30/17 05:18 Neut % 58.6 % (42.0-75.0) 03/30/17 05:18 Lymph % 16.7 % (21.0-51.0) L 03/30/17 05:18 [place] % 23.0 % (0.0-13.0) H 03/30/17 05:18 Eos % 1.3 % (0.9-2.9) 03/30/17 05:18 Baso % 0.4 % (0.2-1.0) 03/30/17 05:18 Neut # 3.4 x10^3/uL (2.2-4.8) 03/30/17 05:18 Lymph # 1.0 X10^3/uL (1.3-2.9) L 03/30/17 05:18 [place] # 1.3 x10^3/uL (0.3-0.8) H 03/30/17 05:18 Eos # 0.1 x10^3/uL (0.0-0.2) 03/30/17 05:18 Baso # 0.0 X10^3/uL (0.0-0.1) 03/30/17 05:18 Absolute Nucleated RBC 0.0 /100WBC 03/30/17 05:18 Total Counted 100 03/30/17 05:18 Neutrophils % (Manual) 64 % (39-76) 03/30/17 05:18 Lymphocytes % (Manual) 26 % (13-43) 03/30/17 05:18 Monocytes % (Manual) 10 % (4-9) H 03/30/17 05:18 Plt Morphology Comment Normal (NORMAL) 03/30/17 05:18 RBC Morphology Normal (NORMAL) 03/30/17 05:18 INR Target Range - 03/26/17 19:15 INR 1.03 (0.8-1.3) 03/26/17 19:15 PTT 37.3 SECONDS (22.9-36.5) H 03/26/17 19:15 PTT Comment - 03/26/17 19:15 Sample Site Right brachial 03/26/17 18:20 ABG pH 7.420 (7.35-7.45) 03/26/17 18:20 ABG pCO2 43.0 mmHg (35.0-45.0) 03/26/17 18:20 ABG pO2 84.0 mmHg (80.0-100.0) 03/26/17 18:20 ABG HCO3 27.9 mmol/L (22-26) H 03/26/17 18:20 ABG O2 Saturation 96.0 % (90-100) 03/26/17 18:20 ABG Base Excess 3.0 mmol/L (-2.0-2.0) H 03/26/17 18:20 Zoran Test Na 01/13/18 18:20 A-a Gradient 12.0 mmHg 03/26/17 18:20 FiO2 21.000 03/26/17 18:20 Blood Gas Comments Evangelina well aw 03/26/17 18:20 Sodium 134 mmol/L (136-145) L 03/30/17 05:18 Corrected Sodium TNP 03/30/17 05:18 Potassium 4.2 mmol/L (3.5-5.1) 03/30/17 05:18 Chloride 98 mmol/L (98-107) 03/30/17 05:18 Carbon Dioxide 27.2 mmol/L (21-32) 03/30/17 05:18 BUN 17 mg/dL (7-18) 03/30/17 05:18 Creatinine 1.15 mg/dL (0.55-1.02) H 03/30/17 05:18 Est GFR (MDRD) Af Amer 58 (>60) L 03/30/17 05:18 Est GFR (MDRD) Non-Af 48 (>60) L 03/30/17 05:18 Glucose 103 mg/dL (65-99) H 03/30/17 05:18 Calcium 8.3 mg/dL (8.5-10.1) L 03/30/17 05:18 Corrected Calcium 9.5 mg/dL (8.5-10.1) 03/30/17 05:18 Magnesium 1.6 mg/dL (1.7-2.9) L 03/26/17 19:15 Total Bilirubin 0.30 mg/dL (0.2-1.0) 03/30/17 05:18 AST 28 Units/L (15-37) 03/30/17 05:18 ALT 16 Units/L (12-78) 03/30/17 05:18 Alkaline Phosphatase 60 Units/L (46-116) 03/30/17 05:18 Creatine Kinase 76 Units/L (26-192) 03/27/17 11:40 CK-MB (CK-2) 1.4 ng/mL (0-4.0) 03/27/17 11:40 CK/CKMB % Calc 1.8 % (<4) 03/27/17 11:40 Troponin I 0.02 ng/mL (0-1.5) 03/27/17 11:40 Total Protein 5.9 g/dL (6.4-8.2) L 03/30/17 05:18 Albumin 2.5 g/dL (3.4-5.0) L 03/30/17 05:18 Globulin 3.4 g/dL (2.5-4.5) 03/30/17 05:18 Albumin/Globulin Ratio 0.7 Ratio (1.1-2.1) L 03/30/17 05:18 Triglycerides 68 mg/dL (0-150) 03/27/17 05:36 Cholesterol 189 mg/dL (0-200) 03/27/17 05:36 LDL Cholesterol, Calc 123 mg/dL (0-100) H 03/27/17 05:36 HDL Cholesterol 52 mg/dL (40-60) 03/27/17 05:36 Cholesterol/HDL Ratio 3.6 (0.0-5.0) 03/27/17 05:36 Specimen Type Clean catch urine 03/26/17 19:01 Urine Color Yellow (YELLOW) 03/26/17 19:01 Urine Appearance Clear (CLEAR) 03/26/17 19:01 Urine pH 6.5 (5.0 - 8.0) 03/26/17 19:01 Ur Specific [place] 1.010 (1.000-1.030) 03/26/17 19:01 Urine Protein 1+ (NEGATIVE) 03/26/17 19:01 Urine Glucose (UA) Negative (NEGATIVE) 03/26/17 19:01 Urine Ketones Negative (NEGATIVE) 03/26/17 19:01 Urine Occult Blood 1+ (NEGATIVE) 03/26/17 19:01 Urine Nitrite Negative (NEGATIVE) 03/26/17 19:01 Urine Bilirubin Negative (NEGATIVE) 03/26/17 19:01 Urine Urobilinogen Normal (NORMAL) 03/26/17 19:01 Ur Leukocyte Esterase 3+ (NEGATIVE) 03/26/17 19:01 Urine RBC 01 - 03 /HPF (NEGATIVE) 03/26/17 19:01 Urine WBC 10 - 15 /HPF (NEGATIVE) 03/26/17 19:01 Ur Squamous Epith Cells Few /HPF (NEGATIVE) 03/26/17 19:01 Amorphous Sediment Trace /HPF (NEGATIVE) 03/26/17 19:01 Urine Bacteria Trace /HPF (NEGATIVE) 03/26/17 19:01 Hyaline Casts Rare /LPF (NEGATIVE) 03/26/17 19:01 Ur Culture Indicated? Yes/culture set up 03/26/17 19:01 - Plan (1) Chest pain, rule out acute myocardial infarction Status: Acute Plan: telemetry, supplemental oxygen, continue to monitor (2) UTI (urinary tract infection) Status: Acute Qualifiers: Urinary tract infection type: acute cystitis Hematuria presence: without hematuria Qualified Code(s): N30.00 - Acute cystitis without hematuria Plan: cipro 400mg iv q12h, continue to monitor (3) Ileus Status: Acute Plan: CIPRO 400MG IV Q12H, KUB IN AM, CONTINUE TO MONITOR (4) Headache Status: Acute Qualifiers: Headache type: unspecified Headache chronicity pattern: acute headache Intractability: not intractable Qualified Code(s): R51 - Headache Plan: FIORICET 1TAB Q6H PRN PAIN, CONTINUE TO MONITOR
[2017-03-30] MEDS: AUGMENTIN 875 MG/125 MG TAB PO SCH ×2 (13:57→23:30)
[2017-03-30] MEDS: XANAX PO PRN (22:30)
[2017-03-30] MEDS: PEPCID 20 MG IV PREMIX* 20 MG/50 ML BAG IV SCH (23:37)
[2017-03-31] MEDS: DILAUDID PO PRN ×2 (05:59→12:38)
[2017-03-31] MEDS ORDERED: DILAUDID PO ONE ×2 (06:00→12:30)
[2017-03-31 06:28] LABS: BASOPHILS % (AUTO) 0.8 % (0.2-1.0); EOSINOPHILS # (AUTO) 0.2 x10^3/uL (0.0-0.2); EOSINOPHILS % (AUTO) 3.9 % (0.9-2.9); HEMATOCRIT 34.5 % (36.0-47.0); HEMOGLOBIN 11.6 g/dL (12.0-16.0); LYMPHOCYTES # (AUTO) 1.5 X10^3/uL (1.3-2.9); LYMPHOCYTES % (AUTO) 25.8 % (21.0-51.0); MEAN CORPUSCULAR HEMOGLOBIN 31.6 pg (27.0-34.0); MEAN CORPUSCULAR HGB CONC 33.5 g/dL (33.0-35.0); MEAN CORPUSCULAR VOLUME 94.4 fL (80.0-100.0); MEAN PLATELET VOLUME 8.8 fL (7.4-11.0); MONOCYTES % (AUTO) 16.7 % (0.0-13.0); NEUTROPHILS % (AUTO) 52.8 % (42.0-75.0); PLATELET COUNT 144 X10^3/uL (150.0-450.0); RED BLOOD COUNT 3.66 X10^6/uL (3.5-5.4); RED CELL DISTRIBUTION WIDTH 12.8 % (11.6-16.5); WHITE BLOOD COUNT 5.7 X10^3/uL (3.6-10.0)
[2017-03-31 06:48] LABS: ALANINE AMINOTRANSFERASE 20 Units/L (12-78); ALBUMIN 2.7 g/dL (3.4-5.0); ALKALINE PHOSPHATASE 68 Units/L (46-116); ASPARTATE AMINO TRANSFERASE 32 Units/L (15-37); BLOOD UREA NITROGEN 15 mg/dL (7-18); CALCIUM 8.5 mg/dL (8.5-10.1); CARBON DIOXIDE 28.9 mmol/L (21-32); CHLORIDE 98 mmol/L (98-107); COR CA(FOR HYPOALB) 9.5 mg/dL (8.5-10.1); CREATININE 1.02 mg/dL (0.55-1.02); SODIUM 134 mmol/L (136-145); TOTAL PROTEIN 6.7 g/dL (6.4-8.2); eGFR BLACK RACES > 60 (>60); eGFR NON BLACK RACES 55 (>60)
--- NOTE | 2017-03-31 06:58 | RAD ---
Comparison 03/29/2017 the Examination: KUB History: Small bowel obstruction Comparison 03/29/2017 Findings: Continued moderate gaseous distention of small and large bowel, including intestine distend ed within the large intrathoracic hiatal hernia. No ascites, pneumatosis or mass formation is demonst rated. Impression: Findings most consistent with ileus; a distal obstruction is not included on these supine images. Reported By:
[2017-03-31] MEDS ORDERED: NORVASC TAB 2.5 MG ONE (08:42)
[2017-03-31] MEDS: LOVENOX INJ 40 MG SYR SC SCH (09:28)
[2017-03-31] MEDS: LOTENSIN TAB 10 MG PO SCH ×3 (09:29→21:37)
[2017-03-31] MEDS: PEPCID TAB 20 MG PO SCH (09:30)
[2017-03-31] MEDS: MICRO K EXTEN CAP 10 MEQ PO SCH (09:30)
[2017-03-31] MEDS: ROBITUSSIN DM PO SCH ×4 (09:30→21:36)
[2017-03-31] MEDS: PriLOSEC PO SCH (09:30)
[2017-03-31] MEDS: LASIX PO SCH (09:30)
[2017-03-31] MEDS: REGLAN TAB 10 MG PO SCH ×2 (09:30→21:34)
[2017-03-31] MEDS: NORVASC TAB 2.5 MG PO SCH (09:31)
[2017-03-31] MEDS: TOPROL XL PO SCH ×2 (09:31→21:37)
[2017-03-31] MEDS: PROTONIX INJ 40 MG VIAL IVP SCH (09:35)
[2017-03-31] MEDS: FIORICET TAB PO PRN (10:40)
[2017-03-31] MEDS: XANAX PO PRN (10:45)
[2017-03-31] MEDS: AUGMENTIN 875 MG/125 MG TAB PO SCH ×2 (12:38→23:00)
--- NOTE | 2017-03-31 21:03 | PCM.PROG ---
Progress Note - Progress Note for Day of Date: 03/31/17 - Subjective Subjective: WAS ADMITTED FOR A URINARY TRACT INFECTION AND CHEST PAIN R/O ACUTE [place]. TODAY, SHE IS LYING IN BED WITH EYES CLOSED ON MORNING ROUNDS. SHE AWAKENS AND RESPONDS TO VERBAL STIMULI. PATIENTS DAUGHTER IS AT BEDSIDE. PATIENT CONTINUES WITH ABDOMINAL PAIN, BUT REPORTS CONTINUED IMPROVEMENT COMPARED TO PREVIOUS DAYS. ON EXAMINATION, HEART IS REGULAR IN RATE AND RHYTHM. BILATERAL LUNGS ARE CLEAR TO AUSCULTATION. ABDOMEN IS ROUND, SOFT, AND NOTED WITH MILD DIFFUSE TENDERNESS. BOWEL SOUNDS ARE NORMAL IN ALL QUADRANTS. THERE IS NORMAL RANGE OF MOTION NOTED TO ALL EXTREMITIES. HER VITAL SIGNS THIS MORNING ARE 98.7-84-22-99%-111/66. LABS WERE OBTAINED TODAY. ABNORMAL LAB VALUES INCLUDE THE FOLLOWING: HGB 11.6, HCT 34.5, SODIUM 134, POTASSIUM 5.4, GFR 55, ALBUMIN 2.7. URINALYSIS REPORTED GROWTH OF ESCHERICHIA COLI AND PROTEUS MIRABILIS. IT WAS RESISTANT TO THE CIPRO THAT SHE WAS ON. WE DISCONTINUED THE CIPRO AND STARTED HER ON AUGMENTIN 875/125MG PO BID. WE OBTAINED A KUB THIS MORNING. IT REPORTED FINDINGS MOST CONSISTENT WITH ILEUS, A DISTAL OBSTRUCTION IS NOT INDLUDED ON THESES SUPINE IMAGES. TODAY, WE WILL CONTINUE WITH CURRENT PLAN OF CARE. WE PLAN TO FOLLOW UP WITH AM LABS AND KUB AND CONTINUE TO MONTIOR PATIENT. - Past Medical Family Social History Past Med/Fam/Surg Hx: No changes since H&P Allergies: Allergies morphine Allergy (Verified 10/15/16 19:44) - Review of Systems ROS: No change since H&P - Vital Signs and I&O's Vital Signs: Temperature 98.4 F Pulse Rate [Left] 63 Pulse Rate 91 Respiratory Rate 22 Blood Pressure [Right Arm] 124/60 Blood Pressure [Left Arm] 102/56 Blood Pressure 165/95 O2 Sat by Pulse Oximetry 95 Intake and Output: Intake & Output 03/29/17 03/30/17 03/31/17 04/01/17 11:59 11:59 11:59 11:59 Intake Total 1090 240 580 360 Output Total 200 150 Balance 1090 40 430 360 - Physical Exam Oriented: Normal Eyes: Normal Ear: Normal Nose: Normal Throat: Normal Respiratory: Normal Cardiovascular: Normal : Normal Auscultation: Bowel Sounds: Normal Tenderness: Diffuse, Moderate, Guarding. negative: Rebound, Rigidity Skin: Normal Musculoskeletal: Normal Psychiatric: Normal Mood Description: Calm Affect: Normal Speech Pattern: Clear, Appropriate - Laboratory and Diagnostics Result Diagrams: 03/31/17 06:12 03/31/17 06:12 Labs: 03/26/17 19:01 Urine,Clean Catch Urine Culture - Final Escherichia Coli Proteus [facility] Laboratory WBC 5.7 X10^3/uL (3.6-10.0) 03/31/17 06:12 RBC 3.66 X10^6/uL (3.5-5.4) 03/31/17 06:12 Hgb 11.6 g/dL (12.0-16.0) L 03/31/17 06:12 Hct 34.5 % (36.0-47.0) L 03/31/17 06:12 MCV 94.4 fL (80.0-100.0) 03/31/17 06:12 MCH 31.6 pg (27.0-34.0) 03/31/17 06:12 MCHC 33.5 g/dL (33.0-35.0) 03/31/17 06:12 RDW 12.8 % (11.6-16.5) 03/31/17 06:12 Plt Count 144 X10^3/uL (150.0-450.0) L 03/31/17 06:12 Plt Count Comment Adequate (ADEQUATE) 03/30/17 05:18 MPV 8.8 fL (7.4-11.0) 03/31/17 06:12 Neut % 52.8 % (42.0-75.0) 03/31/17 06:12 Lymph % 25.8 % (21.0-51.0) 03/31/17 06:12 [place] % 16.7 % (0.0-13.0) H 03/31/17 06:12 Eos % 3.9 % (0.9-2.9) H 03/31/17 06:12 Baso % 0.8 % (0.2-1.0) 03/31/17 06:12 Neut # 3.0 x10^3/uL (2.2-4.8) 03/31/17 06:12 Lymph # 1.5 X10^3/uL (1.3-2.9) 03/31/17 06:12 [place] # 1.0 x10^3/uL (0.3-0.8) H 03/31/17 06:12 Eos # 0.2 x10^3/uL (0.0-0.2) 03/31/17 06:12 Baso # 0.0 X10^3/uL (0.0-0.1) 03/31/17 06:12 Absolute Nucleated RBC 0.0 /100WBC 03/31/17 06:12 Total Counted 100 03/30/17 05:18 Neutrophils % (Manual) 64 % (39-76) 03/30/17 05:18 Lymphocytes % (Manual) 26 % (13-43) 03/30/17 05:18 Monocytes % (Manual) 10 % (4-9) H 03/30/17 05:18 Plt Morphology Comment Normal (NORMAL) 03/30/17 05:18 RBC Morphology Normal (NORMAL) 03/30/17 05:18 INR Target Range - 03/26/17 19:15 INR 1.03 (0.8-1.3) 03/26/17 19:15 PTT 37.3 SECONDS (22.9-36.5) H 03/26/17 19:15 PTT Comment - 03/26/17 19:15 Sample Site Right brachial 03/26/17 18:20 ABG pH 7.420 (7.35-7.45) 03/26/17 18:20 ABG pCO2 43.0 mmHg (35.0-45.0) 03/26/17 18:20 ABG pO2 84.0 mmHg (80.0-100.0) 03/26/17 18:20 ABG HCO3 27.9 mmol/L (22-26) H 03/26/17 18:20 ABG O2 Saturation 96.0 % (90-100) 03/26/17 18:20 ABG Base Excess 3.0 mmol/L (-2.0-2.0) H 03/26/17 18:20 Zoran Test Na 03/26/17 18:20 A-a Gradient 12.0 mmHg 03/26/17 18:20 FiO2 21.000 03/26/17 18:20 Blood Gas Comments Evangelina well aw 03/26/17 18:20 Sodium 134 mmol/L (136-145) L 03/31/17 06:12 Corrected Sodium TNP 03/31/17 06:12 Potassium 5.4 mmol/L (3.5-5.1) H 03/31/17 06:12 Chloride 98 mmol/L (98-107) 03/31/17 06:12 Carbon Dioxide 28.9 mmol/L (21-32) 03/31/17 06:12 BUN 15 mg/dL (7-18) 03/31/17 06:12 Creatinine 1.02 mg/dL (0.55-1.02) 03/31/17 06:12 Est GFR (MDRD) Af Amer > 60 (>60) 03/31/17 06:12 Est GFR (MDRD) Non-Af 55 (>60) L 03/31/17 06:12 Glucose 89 mg/dL (65-99) 03/31/17 06:12 Calcium 8.5 mg/dL (8.5-10.1) 03/31/17 06:12 Corrected Calcium 9.5 mg/dL (8.5-10.1) 03/31/17 06:12 Magnesium 1.6 mg/dL (1.7-2.9) L 03/26/17 19:15 Total Bilirubin 0.30 mg/dL (0.2-1.0) 03/31/17 06:12 AST 32 Units/L (15-37) 03/31/17 06:12 ALT 20 Units/L (12-78) 03/31/17 06:12 Alkaline Phosphatase 68 Units/L (46-116) 03/31/17 06:12 Creatine Kinase 76 Units/L (26-192) 03/27/17 11:40 CK-MB (CK-2) 1.4 ng/mL (0-4.0) 03/27/17 11:40 CK/CKMB % Calc 1.8 % (<4) 03/27/17 11:40 Troponin I 0.02 ng/mL (0-1.5) 03/27/17 11:40 Total Protein 6.7 g/dL (6.4-8.2) 03/31/17 06:12 Albumin 2.7 g/dL (3.4-5.0) L 03/31/17 06:12 Globulin 4.0 g/dL (2.5-4.5) 03/31/17 06:12 Albumin/Globulin Ratio 0.7 Ratio (1.1-2.1) L 03/31/17 06:12 Triglycerides 68 mg/dL (0-150) 03/27/17 05:36 Cholesterol 189 mg/dL (0-200) 03/27/17 05:36 LDL Cholesterol, Calc 123 mg/dL (0-100) H 03/27/17 05:36 HDL Cholesterol 52 mg/dL (40-60) 03/27/17 05:36 Cholesterol/HDL Ratio 3.6 (0.0-5.0) 03/27/17 05:36 Specimen Type Clean catch urine 03/26/17 19:01 Urine Color Yellow (YELLOW) 03/26/17 19:01 Urine Appearance Clear (CLEAR) 03/26/17 19:01 Urine pH 6.5 (5.0 - 8.0) 03/26/17 19:01 Ur Specific [place] 1.010 (1.000-1.030) 03/26/17 19:01 Urine Protein 1+ (NEGATIVE) 03/26/17 19:01 Urine Glucose (UA) Negative (NEGATIVE) 03/26/17 19:01 Urine Ketones Negative (NEGATIVE) 03/26/17 19:01 Urine Occult Blood 1+ (NEGATIVE) 03/26/17 19:01 Urine Nitrite Negative (NEGATIVE) 03/26/17 19:01 Urine Bilirubin Negative (NEGATIVE) 03/26/17 19:01 Urine Urobilinogen Normal (NORMAL) 03/26/17 19:01 Ur Leukocyte Esterase 3+ (NEGATIVE) 03/26/17 19:01 Urine RBC 01 - 03 /HPF (NEGATIVE) 03/26/17 19:01 Urine WBC 10 - 15 /HPF (NEGATIVE) 03/26/17 19:01 Ur Squamous Epith Cells Few /HPF (NEGATIVE) 03/26/17 19:01 Amorphous Sediment Trace /HPF (NEGATIVE) 03/26/17 19:01 Urine Bacteria Trace /HPF (NEGATIVE) 03/26/17 19:01 Hyaline Casts Rare /LPF (NEGATIVE) 03/26/17 19:01 Ur Culture Indicated? Yes/culture set up 03/26/17 19:01 - Plan (1) Chest pain, rule out acute myocardial infarction Status: Acute Plan: telemetry, supplemental oxygen, continue to monitor (2) UTI (urinary tract infection) Status: Acute Qualifiers: Urinary tract infection type: acute cystitis Hematuria presence: without hematuria Qualified Code(s): N30.00 - Acute cystitis without hematuria Plan: AUGMENTIN 875/125MG PO BID, continue to monitor (3) Ileus Status: Acute Plan: AUGMENTIN 875/125 PO BID, KUB IN AM, CONTINUE TO MONITOR (4) Headache Status: Acute Qualifiers: Headache type: unspecified Headache chronicity pattern: acute headache Intractability: not intractable Qualified Code(s): R51 - Headache Plan: FIORICET 1TAB Q6H PRN PAIN, CONTINUE TO MONITOR
[2017-04-01] MEDS: NS 1000 ML 1,000 ML IV SCH ×3 (00:30→19:20)
[2017-04-01] MEDS ORDERED: TUSSIONEX PENNKINETIC SUSP PO PRN (01:11)
[2017-04-01] MEDS: FIORICET TAB PO PRN ×2 (05:20→16:15)
[2017-04-01 06:43] LABS: ALANINE AMINOTRANSFERASE 20 Units/L (12-78); ALBUMIN 2.8 g/dL (3.4-5.0); ALKALINE PHOSPHATASE 70 Units/L (46-116); ASPARTATE AMINO TRANSFERASE 20 Units/L (15-37); BLOOD UREA NITROGEN 16 mg/dL (7-18); CALCIUM 8.5 mg/dL (8.5-10.1); CARBON DIOXIDE 30.8 mmol/L (21-32); CHLORIDE 98 mmol/L (98-107); COR CA(FOR HYPOALB) 9.5 mg/dL (8.5-10.1); CREATININE 0.99 mg/dL (0.55-1.02); SODIUM 135 mmol/L (136-145); TOTAL PROTEIN 6.2 g/dL (6.4-8.2); eGFR BLACK RACES > 60 (>60); eGFR NON BLACK RACES 57 (>60)
[2017-04-01 07:00] LABS: BASOPHILS % (AUTO) 0.6 % (0.2-1.0); EOSINOPHILS # (AUTO) 0.2 x10^3/uL (0.0-0.2); HEMATOCRIT 34.1 % (36.0-47.0); HEMOGLOBIN 11.4 g/dL (12.0-16.0); LYMPHOCYTES # (AUTO) 1.7 X10^3/uL (1.3-2.9); LYMPHOCYTES % (AUTO) 28.6 % (21.0-51.0); MEAN CORPUSCULAR HEMOGLOBIN 31.5 pg (27.0-34.0); MEAN CORPUSCULAR HGB CONC 33.6 g/dL (33.0-35.0); MEAN CORPUSCULAR VOLUME 93.8 fL (80.0-100.0); MEAN PLATELET VOLUME 9.2 fL (7.4-11.0); MONOCYTES # (AUTO) 0.8 x10^3/uL (0.3-0.8); MONOCYTES % (AUTO) 13.7 % (0.0-13.0); NEUTROPHILS # (AUTO) 3.1 x10^3/uL (2.2-4.8); NEUTROPHILS % (AUTO) 53.1 % (42.0-75.0); PLATELET COUNT 160 X10^3/uL (150.0-450.0); RED BLOOD COUNT 3.63 X10^6/uL (3.5-5.4); RED CELL DISTRIBUTION WIDTH 12.7 % (11.6-16.5); WHITE BLOOD COUNT 5.9 X10^3/uL (3.6-10.0)
--- NOTE | 2017-04-01 07:40 | RAD ---
Examination: KUB History: Abdominal pain Comparison 03/31/2017 Findings: There is no change in the moderate gaseous dilatation of small and large bowel. Gas is pres ent in the left colon. No ascites, pneumatosis or mass is demonstrated. Impression: No change. Differential continues between ileus and distal obstruction. Reported By:
[2017-04-01] MEDS ORDERED: DILAUDID PO ONE ×2 (08:39→16:06)
[2017-04-01] MEDS ORDERED: NORVASC TAB 2.5 MG ONE (08:39)
[2017-04-01] MEDS: LOVENOX INJ 40 MG SYR SC SCH (08:49)
[2017-04-01] MEDS: ROBITUSSIN DM PO SCH ×4 (08:50→21:49)
[2017-04-01] MEDS: TOPROL XL PO SCH ×2 (08:50→21:49)
[2017-04-01] MEDS: LEVSIN/MAALOX/LIDOC VISC PO PRN ×3 (08:50→21:54)
[2017-04-01] MEDS: DILAUDID PO PRN ×2 (08:50→16:10)
[2017-04-01] MEDS: LASIX PO SCH (08:51)
[2017-04-01] MEDS: PriLOSEC PO SCH (08:51)
[2017-04-01] MEDS: LOTENSIN TAB 10 MG PO SCH ×2 (08:51→21:50)
[2017-04-01] MEDS: PEPCID TAB 20 MG PO SCH (08:51)
[2017-04-01] MEDS: REGLAN TAB 10 MG PO SCH ×2 (08:51→21:49)
[2017-04-01] MEDS: NORVASC TAB 2.5 MG PO SCH (08:52)
[2017-04-01] MEDS: PROTONIX INJ 40 MG VIAL IVP SCH (10:28)
[2017-04-01] MEDS: AUGMENTIN 875 MG/125 MG TAB PO SCH ×2 (12:49→22:00)
[2017-04-01] MEDS: MILK OF MAGNESIA PO SCH ×2 (16:40→21:48)
[2017-04-01] MEDS: MIRALAX POWDER (1 DOSE 17GM) PO SCH ×2 (16:40→21:47)
[2017-04-01] MEDS: COLACE CAP 100 MG PO SCH ×2 (17:12→21:49)
[2017-04-01] MEDS: XANAX PO PRN (21:49)
[2017-04-02 05:33] LABS: BASOPHILS % (AUTO) 0.9 % (0.2-1.0); EOSINOPHILS # (AUTO) 0.2 x10^3/uL (0.0-0.2); EOSINOPHILS % (AUTO) 3.6 % (0.9-2.9); HEMATOCRIT 29.8 % (36.0-47.0); LYMPHOCYTES # (AUTO) 1.5 X10^3/uL (1.3-2.9); LYMPHOCYTES % (AUTO) 30.2 % (21.0-51.0); MEAN CORPUSCULAR HEMOGLOBIN 31.4 pg (27.0-34.0); MEAN CORPUSCULAR HGB CONC 33.6 g/dL (33.0-35.0); MEAN CORPUSCULAR VOLUME 93.4 fL (80.0-100.0); MEAN PLATELET VOLUME 9.2 fL (7.4-11.0); MONOCYTES # (AUTO) 0.8 x10^3/uL (0.3-0.8); MONOCYTES % (AUTO) 16.5 % (0.0-13.0); NEUTROPHILS # (AUTO) 2.3 x10^3/uL (2.2-4.8); NEUTROPHILS % (AUTO) 48.8 % (42.0-75.0); PLATELET COUNT 119 X10^3/uL (150.0-450.0); RED BLOOD COUNT 3.19 X10^6/uL (3.5-5.4); RED CELL DISTRIBUTION WIDTH 12.3 % (11.6-16.5); WHITE BLOOD COUNT 4.8 X10^3/uL (3.6-10.0)
[2017-04-02 05:46] LABS: ALANINE AMINOTRANSFERASE 17 Units/L (12-78); ALBUMIN 2.3 g/dL (3.4-5.0); ALKALINE PHOSPHATASE 63 Units/L (46-116); ASPARTATE AMINO TRANSFERASE 17 Units/L (15-37); BLOOD UREA NITROGEN 18 mg/dL (7-18); CALCIUM 8.1 mg/dL (8.5-10.1); CARBON DIOXIDE 36.1 mmol/L (21-32); CHLORIDE 99 mmol/L (98-107); COR CA(FOR HYPOALB) 9.5 mg/dL (8.5-10.1); COR NA(FOR HYPERGLY) 138 mmol/L (136-145); CREATININE 1.01 mg/dL (0.55-1.02); SODIUM 138 mmol/L (136-145); TOTAL PROTEIN 5.7 g/dL (6.4-8.2); eGFR BLACK RACES > 60 (>60); eGFR NON BLACK RACES 55 (>60)
[2017-04-02] MEDS: NS 1000 ML 1,000 ML IV SCH ×2 (05:53→21:41)
[2017-04-02] MEDS: MILK OF MAGNESIA PO SCH ×4 (09:55→21:10)
[2017-04-02] MEDS: LASIX PO SCH (09:56)
[2017-04-02] MEDS: AUGMENTIN 875 MG/125 MG TAB PO SCH ×3 (09:56→23:00)
[2017-04-02] MEDS: PriLOSEC PO SCH (09:56)
[2017-04-02] MEDS: COLACE CAP 100 MG PO SCH ×2 (09:56→21:12)
[2017-04-02] MEDS: PEPCID TAB 20 MG PO SCH (09:56)
[2017-04-02] MEDS: TOPROL XL PO SCH ×2 (09:56→21:11)
[2017-04-02] MEDS: PROTONIX INJ 40 MG VIAL IVP SCH ×2 (09:57→10:10)
[2017-04-02] MEDS: ROBITUSSIN DM PO SCH ×4 (09:57→21:12)
[2017-04-02] MEDS: NORVASC TAB 2.5 MG PO SCH (09:57)
[2017-04-02] MEDS: LOTENSIN TAB 10 MG PO SCH ×2 (09:57→21:11)
[2017-04-02] MEDS: REGLAN TAB 10 MG PO SCH ×2 (09:57→21:11)
[2017-04-02] MEDS: LOVENOX INJ 40 MG SYR SC SCH (09:58)
[2017-04-02] MEDS ORDERED: DILAUDID PO ONE ×2 (11:01→19:07)
[2017-04-02] MEDS: LEVSIN/MAALOX/LIDOC VISC PO PRN ×2 (11:05→19:15)
[2017-04-02] MEDS: DILAUDID PO PRN ×2 (11:06→19:13)
[2017-04-02] MEDS: XANAX PO PRN (21:11)
[2017-04-02] MEDS: MIRALAX POWDER (1 DOSE 17GM) PO SCH (21:12)
[2017-04-02] MEDS: MICRO K EXTEN CAP 10 MEQ PO SCH (21:12)
[2017-04-03 05:31] LABS: BASOPHILS % (AUTO) 0.5 % (0.2-1.0); EOSINOPHILS # (AUTO) 0.1 x10^3/uL (0.0-0.2); EOSINOPHILS % (AUTO) 2.5 % (0.9-2.9); HEMATOCRIT 32.3 % (36.0-47.0); HEMOGLOBIN 10.8 g/dL (12.0-16.0); LYMPHOCYTES # (AUTO) 1.3 X10^3/uL (1.3-2.9); LYMPHOCYTES % (AUTO) 26.7 % (21.0-51.0); MEAN CORPUSCULAR HEMOGLOBIN 31.4 pg (27.0-34.0); MEAN CORPUSCULAR HGB CONC 33.5 g/dL (33.0-35.0); MEAN CORPUSCULAR VOLUME 93.5 fL (80.0-100.0); MEAN PLATELET VOLUME 8.5 fL (7.4-11.0); MONOCYTES # (AUTO) 0.6 x10^3/uL (0.3-0.8); MONOCYTES % (AUTO) 12.8 % (0.0-13.0); NEUTROPHILS # (AUTO) 2.8 x10^3/uL (2.2-4.8); NEUTROPHILS % (AUTO) 57.5 % (42.0-75.0); PLATELET COUNT 147 X10^3/uL (150.0-450.0); RED BLOOD COUNT 3.45 X10^6/uL (3.5-5.4); RED CELL DISTRIBUTION WIDTH 12.7 % (11.6-16.5); WHITE BLOOD COUNT 4.9 X10^3/uL (3.6-10.0)
[2017-04-03 05:50] LABS: ALANINE AMINOTRANSFERASE 20 Units/L (12-78); ALBUMIN 2.3 g/dL (3.4-5.0); ALKALINE PHOSPHATASE 63 Units/L (46-116); ASPARTATE AMINO TRANSFERASE 20 Units/L (15-37); BLOOD UREA NITROGEN 14 mg/dL (7-18); CALCIUM 8.3 mg/dL (8.5-10.1); CHLORIDE 99 mmol/L (98-107); COR CA(FOR HYPOALB) 9.7 mg/dL (8.5-10.1); CREATININE 0.82 mg/dL (0.55-1.02); SODIUM 140 mmol/L (136-145); TOTAL PROTEIN 6.1 g/dL (6.4-8.2); eGFR BLACK RACES > 60 (>60); eGFR NON BLACK RACES > 60 (>60)
[2017-04-03 08:32] VITALS: BP 104/75
[2017-04-03] MEDS ORDERED: DILAUDID PO ONE (09:12)
[2017-04-03] MEDS ORDERED: NORVASC TAB 2.5 MG ONE (09:13)
[2017-04-03] MEDS: LEVSIN/MAALOX/LIDOC VISC PO PRN (09:20)
[2017-04-03] MEDS: PROTONIX INJ 40 MG VIAL IVP SCH ×2 (09:20→09:42)
[2017-04-03] MEDS: LOVENOX INJ 40 MG SYR SC SCH (09:20)
[2017-04-03] MEDS: PriLOSEC PO SCH (09:22)
[2017-04-03] MEDS: MICRO K EXTEN CAP 10 MEQ PO SCH (09:22)
[2017-04-03] MEDS: LASIX PO SCH (09:23)
[2017-04-03] MEDS: DILAUDID PO PRN (09:23)
[2017-04-03] MEDS: PEPCID TAB 20 MG PO SCH (09:23)
[2017-04-03] MEDS: REGLAN TAB 10 MG PO SCH (09:23)
[2017-04-03] MEDS: COLACE CAP 100 MG PO SCH (09:23)
[2017-04-03] MEDS: MILK OF MAGNESIA PO SCH (09:24)
[2017-04-03] MEDS: LOTENSIN TAB 10 MG PO SCH (09:25)
[2017-04-03] MEDS: ROBITUSSIN DM PO SCH (09:25)
[2017-04-03] MEDS: NORVASC TAB 2.5 MG PO SCH (09:26)
[2017-04-03] MEDS: AUGMENTIN 875 MG/125 MG TAB PO SCH (10:52)
--- NOTE | 2017-04-03 21:30 | PCM.PROG ---
Progress Note - Progress Note for Day of Date: 04/01/17 - Subjective Subjective: CONTINUES TO BE TREATED FOR URINARY TRACT INFECTION AND ABDOMINAL PAIN WITH A POSSIBLE ILEUS. TODAY, SHE IS ALERT AND ORIENTED, LYING IN BED ON MORNING ROUNDS.. PATIENTS DAUGHTER IS AT BEDSIDE. PATIENT CONTINUES WITH COMPLAINTS OF RUQ/EPIGASTRAC ABDOMINAL PAIN. ON EXAMINATION, HEART IS REGULAR IN RATE AND RHYTHM. BILATERAL LUNGS ARE CLEAR TO AUSCULTATION. ABDOMEN IS ROUND, SOFT, AND NOTED WITH TENDERNESS TO THE RUQ/EPIGASTRIC AREA. BOWEL SOUNDS ARE NORMAL IN ALL QUADRANTS. THERE IS NORMAL RANGE OF MOTION NOTED TO ALL EXTREMITIES. HER VITAL SIGNS THIS MORNING ARE 97.8-70-20-96%-113/62. LABS WERE OBTAINED TODAY. ABNORMAL LAB VALUES INCLUDE THE FOLLOWING: HGB 11.4, HCT 34.1, SODIUM 135, TOTAL PROTEIN 6.2, ALBUMIN 2.8. WE OBTAINED A KUB THIS MORNING. IT REPORTED NO CHANGE. DIFFERENTIAL CONTINUES BETWEEN ILEUS AND DISTAL OBSTRUCTION. TODAY, WE WILL START A BOWEL REGIMEN OF COLACE 100MG PO BID, MIRALAX 17GM PO AT HS, AND MILK OF MAGNESIA 10ML PO QID. OTHERWISE, WE WILL CONTINUE WITH CURRENT PLAN OF CARE. WE PLAN TO FOLLOW UP WITH AM LABS AND KUB AND CONTINUE TO MONTIOR PATIENT. - Past Medical Family Social History Past Med/Fam/Surg Hx: No changes since H&P Allergies: Allergies morphine Allergy (Verified 10/15/16 19:44) - Review of Systems ROS: No change since H&P - Vital Signs and I&O's Vital Signs: Temperature 98.4 F Pulse Rate [Left] 77 Pulse Rate 91 Respiratory Rate 20 Blood Pressure [Right Arm] 135/64 Blood Pressure [Left Arm] 104/75 Blood Pressure 165/95 O2 Sat by Pulse Oximetry 94 Intake and Output: Intake & Output 04/01/17 04/02/17 04/03/17 04/04/17 11:59 11:59 11:59 11:59 Intake Total 1200 900 870 Balance 1200 900 870 - Physical Exam Oriented: Normal Eyes: Normal Ear: Normal Nose: Normal Throat: Normal Respiratory: Normal Cardiovascular: Normal : Normal Auscultation: Bowel Sounds: Normal Palpation: Normal Tenderness: RUQ, Epigastric, Mild, Guarding. negative: Rebound, Rigidity Skin: Normal Musculoskeletal: Normal Psychiatric: Normal Mood Description: Calm Affect: Normal Speech Pattern: Clear, Appropriate - Laboratory and Diagnostics Result Diagrams: 04/03/17 04:45 04/03/17 04:45 Labs: 03/26/17 19:01 Urine,Clean Catch Urine Culture - Final Escherichia Coli Proteus Mirabilis Laboratory WBC 4.9 X10^3/uL (3.6-10.0) 04/03/17 04:45 RBC 3.45 X10^6/uL (3.5-5.4) L 04/03/17 04:45 Hgb 10.8 g/dL (12.0-16.0) L 04/03/17 04:45 Hct 32.3 % (36.0-47.0) L 04/03/17 04:45 MCV 93.5 fL (80.0-100.0) 04/03/17 04:45 MCH 31.4 pg (27.0-34.0) 04/03/17 04:45 MCHC 33.5 g/dL (33.0-35.0) 04/03/17 04:45 RDW 12.7 % (11.6-16.5) 04/03/17 04:45 Plt Count 147 X10^3/uL (150.0-450.0) L 04/03/17 04:45 Plt Count Comment Adequate (ADEQUATE) 03/30/17 05:18 MPV 8.5 fL (7.4-11.0) 04/03/17 04:45 Neut % 57.5 % (42.0-75.0) 04/03/17 04:45 Lymph % 26.7 % (21.0-51.0) 04/03/17 04:45 [place] % 12.8 % (0.0-13.0) 04/03/17 04:45 Eos % 2.5 % (0.9-2.9) 04/03/17 04:45 Baso % 0.5 % (0.2-1.0) 04/03/17 04:45 Neut # 2.8 x10^3/uL (2.2-4.8) 04/03/17 04:45 Lymph # 1.3 X10^3/uL (1.3-2.9) 04/03/17 04:45 [place] # 0.6 x10^3/uL (0.3-0.8) 04/03/17 04:45 Eos # 0.1 x10^3/uL (0.0-0.2) 04/03/17 04:45 Baso # 0.0 X10^3/uL (0.0-0.1) 04/03/17 04:45 Absolute Nucleated RBC 0.1 /100WBC 04/03/17 04:45 Total Counted 100 03/30/17 05:18 Neutrophils % (Manual) 64 % (39-76) 03/30/17 05:18 Lymphocytes % (Manual) 26 % (13-43) 03/30/17 05:18 Monocytes % (Manual) 10 % (4-9) H 03/30/17 05:18 Plt Morphology Comment Normal (NORMAL) 03/30/17 05:18 RBC Morphology Normal (NORMAL) 03/30/17 05:18 INR Target Range - 03/26/17 19:15 INR 1.03 (0.8-1.3) 03/26/17 19:15 PTT 37.3 SECONDS (22.9-36.5) H 03/26/17 19:15 PTT Comment - 03/26/17 19:15 Sample Site Right brachial 03/26/17 18:20 ABG pH 7.420 (7.35-7.45) 03/26/17 18:20 ABG pCO2 43.0 mmHg (35.0-45.0) 03/26/17 18:20 ABG pO2 84.0 mmHg (80.0-100.0) 03/26/17 18:20 ABG HCO3 27.9 mmol/L (22-26) H 03/26/17 18:20 ABG O2 Saturation 96.0 % (90-100) 03/26/17 18:20 ABG Base Excess 3.0 mmol/L (-2.0-2.0) H 03/26/17 18:20 Zoran Test Na 03/26/17 18:20 A-a Gradient 12.0 mmHg 03/26/17 18:20 FiO2 21.000 03/26/17 18:20 Blood Gas Comments Evangelina well aw 03/26/17 18:20 Sodium 140 mmol/L (136-145) 04/03/17 04:45 Corrected Sodium TNP 04/03/17 04:45 Potassium 3.7 mmol/L (3.5-5.1) 04/03/17 04:45 Chloride 99 mmol/L (98-107) 04/03/17 04:45 Carbon Dioxide 39.0 mmol/L (21-32) H 04/03/17 04:45 BUN 14 mg/dL (7-18) 04/03/17 04:45 Creatinine 0.82 mg/dL (0.55-1.02) 04/03/17 04:45 Est GFR (MDRD) Af Amer > 60 (>60) 04/03/17 04:45 Est GFR (MDRD) Non-Af > 60 (>60) 04/03/17 04:45 Glucose 101 mg/dL (65-99) H 04/03/17 04:45 Calcium 8.3 mg/dL (8.5-10.1) L 04/03/17 04:45 Corrected Calcium 9.7 mg/dL (8.5-10.1) 04/03/17 04:45 Magnesium 1.6 mg/dL (1.7-2.9) L 03/26/17 19:15 Total Bilirubin 0.30 mg/dL (0.2-1.0) 04/03/17 04:45 AST 20 Units/L (15-37) 04/03/17 04:45 ALT 20 Units/L (12-78) 04/03/17 04:45 Alkaline Phosphatase 63 Units/L (46-116) 04/03/17 04:45 Creatine Kinase 76 Units/L (26-192) 03/27/17 11:40 CK-MB (CK-2) 1.4 ng/mL (0-4.0) 03/27/17 11:40 CK/CKMB % Calc 1.8 % (<4) 03/27/17 11:40 Troponin I 0.02 ng/mL (0-1.5) 03/27/17 11:40 Total Protein 6.1 g/dL (6.4-8.2) L 04/03/17 04:45 Albumin 2.3 g/dL (3.4-5.0) L 04/03/17 04:45 Globulin 3.8 g/dL (2.5-4.5) 04/03/17 04:45 Albumin/Globulin Ratio 0.6 Ratio (1.1-2.1) L 04/03/17 04:45 Triglycerides 68 mg/dL (0-150) 03/27/17 05:36 Cholesterol 189 mg/dL (0-200) 03/27/17 05:36 LDL Cholesterol, Calc 123 mg/dL (0-100) H 03/27/17 05:36 HDL Cholesterol 52 mg/dL (40-60) 03/27/17 05:36 Cholesterol/HDL Ratio 3.6 (0.0-5.0) 03/27/17 05:36 Specimen Type Clean catch urine 03/26/17 19:01 Urine Color Yellow (YELLOW) 03/26/17 19:01 Urine Appearance Clear (CLEAR) 03/26/17 19:01 Urine pH 6.5 (5.0 - 8.0) 03/26/17 19:01 Ur Specific [place] 1.010 (1.000-1.030) 03/26/17 19:01 Urine Protein 1+ (NEGATIVE) 03/26/17 19:01 Urine Glucose (UA) Negative (NEGATIVE) 03/26/17 19:01 Urine Ketones Negative (NEGATIVE) 03/26/17 19:01 Urine Occult Blood 1+ (NEGATIVE) 03/26/17 19:01 Urine Nitrite Negative (NEGATIVE) 03/26/17 19:01 Urine Bilirubin Negative (NEGATIVE) 03/26/17 19:01 Urine Urobilinogen Normal (NORMAL) 03/26/17 19:01 Ur Leukocyte Esterase 3+ (NEGATIVE) 03/26/17 19:01 Urine RBC 01 - 03 /HPF (NEGATIVE) 03/26/17 19:01 Urine WBC 10 - 15 /HPF (NEGATIVE) 03/26/17 19:01 Ur Squamous Epith Cells Few /HPF (NEGATIVE) 03/26/17 19:01 Amorphous Sediment Trace /HPF (NEGATIVE) 03/26/17 19:01 Urine Bacteria Trace /HPF (NEGATIVE) 03/26/17 19:01 Hyaline Casts Rare /LPF (NEGATIVE) 03/26/17 19:01 Ur Culture Indicated? Yes/culture set up 03/26/17 19:01 - Plan (1) Chest pain, rule out acute myocardial infarction Status: Acute Plan: telemetry, supplemental oxygen, continue to monitor (2) UTI (urinary tract infection) Status: Acute Qualifiers: Urinary tract infection type: acute cystitis Hematuria presence: without hematuria Qualified Code(s): N30.00 - Acute cystitis without hematuria Plan: AUGMENTIN 875/125MG PO BID, continue to monitor (3) Ileus Status: Acute Plan: AUGMENTIN 875/125 PO BID, BOWEL REGIMEN, KUB IN AM, CONTINUE TO MONITOR (4) Headache Status: Acute Qualifiers: Headache type: unspecified Headache chronicity pattern: acute headache Intractability: not intractable Qualified Code(s): R51 - Headache Plan: FIORICET 1TAB Q6H PRN PAIN, CONTINUE TO MONITOR
== END 2017-04-03 10:55 | disposition home or self-care (01) | DRG 690 ==
LOC: ER 18:26 → MED/SURG 23:29 → OBSVTOIN 03-28 15:00
PROVIDERS: ADMIT Internal Medicine; ATTEND Internal Medicine
DX: N30.00 Acute cystitis without hematuria (principal); R07.89 Other chest pain; R06.03 Acute respiratory distress; R10.13 Epigastric pain; E87.1 Hypo-osmolality and hyponatremia; N18.9 Chronic kidney disease, unspecified; E11.65 Type 2 diabetes mellitus with hyperglycemia; B96.29 Other Escherichia coli [E. coli] as the cause of diseases classified elsewhere; K56.7 Ileus, unspecified; B96.4 Proteus (mirabilis) (morganii) as the cause of diseases classified elsewhere; M54.2 Cervicalgia; R51 Headache; I51.7 Cardiomegaly; R79.1 Abnormal coagulation profile; R26.89 Other abnormalities of gait and mobility
CPT/HCPCS: 36415; 36600; 71045; 74018; 74022; 74176; 80053; 80061; 81001; 82550; 82553; 82803; 83735; 84484; 85025; 85610; 85730; 87086; 87088; 87186; 93005; 94760; 96365; 96367; 96374; 96375; 99284; A4216; A4222; C9113; G8978; G8979; G0378; J0696; J0744; J1650; J1885; J2060

== ENCOUNTER 2017-04-22 15:45 | Inpatient (IN) | payer OTHER ==
--- NOTE | 2017-04-22 16:29 | DR.GENAD ---
HPI - PCP Primary Care Physician: NELLY - HPI Comment HPI Comment: SINCE DISCHARGE FROM HOSPITAL, PATIENT IS PROGRESSIVELY WEAK. YESTERDAY AND TODAY, SHE DID NOT TAKE HER MEDICATIONS. SHE IS BEING REFUSING FOOD WELL. SHE TOLD NURSE PHARMACIST DISCONTINUE SOME OF HER MEDS. - Complaint/Symptoms Chief Complaint Doctors Comments: AMS, WEAKNESS AND NOT EATING OR TAKING HER MEDICATION. Chief Complaint:: PATIENT FAMILY STATED THAT SHE HAS BEEN HAVING AMS AND NOT WANTING TO EAT SINCE TUESDAY. SHE STATED THAT THAT ELIGIO BUTTS AT [facility] HAS TAKEN HER OFF SOME HER MEDICINE. - Nurses notes reviewed Nurses Notes Review: Yes - Source History Provided: Family Member - Mode of Arrival Mode of Arrival: EMS - Timing Onset of Chief Complaint: 04/15/17 Came on: Suddenly - Duration Duration: Constant Duration: Days - Severity Severity: Moderate PMH - PMH Past Medical History: Yes Past Medical History: Arthritis, CHF, CVA, GERD, Hypertension Past Surgical History: Yes Surgical History: Abdominal Surgery, Bowel Resection, Cholecystectomy, Hysterectomy, Joint Replacement, Other - Family History History of Family Medical Conditions: Yes Family Medical History: Cancer, Heart Failure, Hypertension - Social History Does patient currently use any type of tobacco product: No Have you used tobacco products in the last 12 months: No Type of Tobacco Use: None Does any household member use tobacco: No Alcohol Use: None Do you use any recreational Drugs:: No Lives With: Family Lives Where: Home - infectious screening In the last 2 months have you had wt loss of >10#?: NO Have you had fever, night sweats or hemotysis?: No Have you traveled outside the country in the last 6 months?: No Isolation: Standard ROS - Review of Systems Constitutional: Weakness, Fatigue, Loss of Appetite. negative: Chills, Fever Eyes: negative: Eye Pain, Discharge ENTM: negative: Ear Pain, Nose Discharge, Nose Congestion, Throat Pain Respiratoy: Non-Productive Cough, Short of Breath. negative: Wheezing, Hemoptysis Cardiovascular: Chest Pain, Edema Gastrointestinal/Abdominal: negative: Abdominal Pain, Constipation, Diarrhea, Nausea Genitourinary: negative: Hematuria Neurological: Weakness Musculoskeletal: Back Pain, Muscle Pain Integumentary: Change in Color Hematologic/Lymphatic: Easy Bleeding, Easy Bruising All Other Systems: Reviewed and Negative PE - Vital Signs Vitals: Temperature 97.6 F Pulse Rate 18 Respiratory Rate 20 Blood Pressure [Right Arm] 135/64 Blood Pressure [Left Arm] 104/75 Blood Pressure 96/67 O2 Sat by Pulse Oximetry 96 - General Limitations: No Limitations General Appearance: Alert - Head Head Exam: Normal Inspection - Eyes Eye exam: PERRL. negative: Scleral Icterus, Conjunctival Injection - ENT ENT Exam: Normal External Ear Exam External Ear Exam: Normal External Inspection TM/Canal Exam: Bilateral Normal Nose Exam: Normal Nose Exam Mouth Exam: Normal Inspection Throat Exam: Normal Inspection - Neck Neck Exam: Trachea Midline - Chest Chest Inspection: Symmetric Chest Wall Rise - Respiratory Respiratory Exam: Normal Lung Sounds Bilat Respiratory Exam: Bilateral Rhonchi, Upper Rhonchi, Lower Rhonchi - Cardiovascular Cardiovascular Exam: Regular Rate, Normal Rhythm, Normal Heart Sounds - Abdominal Exam Abdominal Exam: Normal Bowel Sounds, Soft. negative: Tenderness - Extremities Extremities Exam: Tenderness, Edema - Back Back Exam: Paraspinal Tenderness - Neurologic Neurological Exam: Alert - Psychiatric Psychiatric Exam: Flat Affect - Skin Skin Exam: Normal Color MDM - Additional Information Additional Information Obtained From: Family - Differential Diagnosis Differential Diagnosis: AMD, UTI, PNEUMONIA, [place], Course - Treatment Treatment: SEE ORDERS. - Consultation Consultation Comments: DISCUSS PATIENT WITH DR. ISAACS. HE WILL ADMIT PATIENT. - Education/Counseling Education/Counseling: Patient, Family, Education Educated On: Diagnosis, Needs for Follow Up ROR - Labs Reviewed Laboratory Results Reviewed?: Yes Result Diagrams: 04/22/17 17:10 04/22/17 20:04 Laboratory: WBC 8.9 X10^3/uL (3.6-10.0) 04/22/17 17:10 RBC 3.57 X10^6/uL (3.5-5.4) 04/22/17 17:10 Hgb 11.4 g/dL (12.0-16.0) L 04/22/17 17:10 Hct 34.2 % (36.0-47.0) L 04/22/17 17:10 MCV 96.0 fL (80.0-100.0) 04/22/17 17:10 MCH 31.9 pg (27.0-34.0) 04/22/17 17:10 MCHC 33.2 g/dL (33.0-35.0) 04/22/17 17:10 RDW 13.2 % (11.6-16.5) 04/22/17 17:10 Plt Count 246 X10^3/uL (150.0-450.0) 04/22/17 17:10 MPV 8.7 fL (7.4-11.0) 04/22/17 17:10 Neut % 71.1 % (42.0-75.0) 04/22/17 17:10 Lymph % 17.7 % (21.0-51.0) L 04/22/17 17:10 [place] % 9.6 % (0.0-13.0) 04/22/17 17:10 Eos % 0.9 % (0.9-2.9) 04/22/17 17:10 Baso % 0.7 % (0.2-1.0) 04/22/17 17:10 Neut # 6.3 x10^3/uL (2.2-4.8) H 04/22/17 17:10 Lymph # 1.6 X10^3/uL (1.3-2.9) 04/22/17 17:10 [place] # 0.9 x10^3/uL (0.3-0.8) H 04/22/17 17:10 Eos # 0.1 x10^3/uL (0.0-0.2) 04/22/17 17:10 Baso # 0.1 X10^3/uL (0.0-0.1) 04/22/17 17:10 Absolute Nucleated RBC 0.1 /100WBC 04/22/17 17:10 Sodium 131 mmol/L (136-145) L 04/22/17 17:10 Corrected Sodium TNP 04/22/17 17:10 Potassium 6.3 mmol/L (3.5-5.1) H* 04/22/17 18:20 Chloride 96 mmol/L (98-107) L 04/22/17 17:10 Carbon Dioxide 23.6 mmol/L (21-32) 04/22/17 17:10 BUN 74 mg/dL (7-18) H 04/22/17 17:10 Creatinine 5.99 mg/dL (0.55-1.02) H 04/22/17 17:10 Est GFR (MDRD) Af Amer 9 (>60) L 04/22/17 17:10 Est GFR (MDRD) Non-Af 7 (>60) L 04/22/17 17:10 Glucose 86 mg/dL (65-99) 04/22/17 17:10 Lactic Acid 0.9 mmol/L (0.4-2.0) 04/22/17 17:10 Calcium 9.1 mg/dL (8.5-10.1) 04/22/17 17:10 Corrected Calcium 9.7 mg/dL (8.5-10.1) 04/22/17 17:10 Total Bilirubin 0.40 mg/dL (0.2-1.0) 04/22/17 17:10 AST 17 Units/L (15-37) 04/22/17 17:10 ALT 18 Units/L (12-78) 04/22/17 17:10 Alkaline Phosphatase 81 Units/L (46-116) 04/22/17 17:10 Creatine Kinase 53 Units/L (26-192) 04/22/17 17:10 CK-MB (CK-2) 1.4 ng/mL (0-4.0) 04/22/17 17:10 CK/CKMB % Calc 2.6 % (<4) 04/22/17 17:10 Troponin I < 0.02 ng/mL (0-1.5) 04/22/17 17:10 C-Reactive Protein 5.80 mg/L (0-3.0) H 04/22/17 17:10 Total Protein 7.4 g/dL (6.4-8.2) 04/22/17 17:10 Albumin 3.2 g/dL (3.4-5.0) L 04/22/17 17:10 Globulin 4.2 g/dL (2.5-4.5) 04/22/17 17:10 Albumin/Globulin Ratio 0.8 Ratio (1.1-2.1) L 04/22/17 17:10 - XRAY XRAY Findings: REPORT DISCUSS WITH FAMILY - EKG Rhythm: NSR (EKG NOTED) - Diagnosis Discharge Problem: Hyperkalemia, Generalized weakness Acute renal failure Qualifiers: Acute renal failure type: unspecified Qualified Code(s): N17.9 - Acute kidney failure, unspecified Altered mental state Qualifiers: Altered mental status type: transient alteration of awareness Qualified Code(s) : R40.4 - Transient alteration of awareness - Discharge Plan Disposition: 09 ADMITTED INPATIENT Condition: Stable - Follow ups/Referrals - Instructions
[2017-04-22] MEDS ORDERED: NS 1000 ML 1,000 ML IV ONE (16:32)
[2017-04-22 17:26] LABS: BASOPHILS # (AUTO) 0.1 X10^3/uL (0.0-0.1); BASOPHILS % (AUTO) 0.7 % (0.2-1.0); EOSINOPHILS # (AUTO) 0.1 x10^3/uL (0.0-0.2); EOSINOPHILS % (AUTO) 0.9 % (0.9-2.9); HEMATOCRIT 34.2 % (36.0-47.0); HEMOGLOBIN 11.4 g/dL (12.0-16.0); LYMPHOCYTES # (AUTO) 1.6 X10^3/uL (1.3-2.9); LYMPHOCYTES % (AUTO) 17.7 % (21.0-51.0); MEAN CORPUSCULAR HEMOGLOBIN 31.9 pg (27.0-34.0); MEAN CORPUSCULAR HGB CONC 33.2 g/dL (33.0-35.0); MEAN PLATELET VOLUME 8.7 fL (7.4-11.0); MONOCYTES # (AUTO) 0.9 x10^3/uL (0.3-0.8); MONOCYTES % (AUTO) 9.6 % (0.0-13.0); NEUTROPHILS # (AUTO) 6.3 x10^3/uL (2.2-4.8); NEUTROPHILS % (AUTO) 71.1 % (42.0-75.0); PLATELET COUNT 246 X10^3/uL (150.0-450.0); RED BLOOD COUNT 3.57 X10^6/uL (3.5-5.4); RED CELL DISTRIBUTION WIDTH 13.2 % (11.6-16.5); WHITE BLOOD COUNT 8.9 X10^3/uL (3.6-10.0)
[2017-04-22 17:39] LABS: LACTIC ACID 0.9 mmol/L (0.4-2.0)
[2017-04-22 17:45] LABS: ALANINE AMINOTRANSFERASE 18 Units/L (12-78); ALBUMIN 3.2 g/dL (3.4-5.0); ALKALINE PHOSPHATASE 81 Units/L (46-116); ASPARTATE AMINO TRANSFERASE 17 Units/L (15-37); BLOOD UREA NITROGEN 74 mg/dL (7-18); CALCIUM 9.1 mg/dL (8.5-10.1); CARBON DIOXIDE 23.6 mmol/L (21-32); CHLORIDE 96 mmol/L (98-107); CKMB % 2.6 % (<4); COR CA(FOR HYPOALB) 9.7 mg/dL (8.5-10.1); CREATINE KINASE 53 Units/L (26-192); CREATINE KINASE MB 1.4 ng/mL (0-4.0); CREATININE 5.99 mg/dL (0.55-1.02); SODIUM 131 mmol/L (136-145); TOTAL PROTEIN 7.4 g/dL (6.4-8.2); TROPONIN I < 0.02 ng/mL (0-1.5); eGFR BLACK RACES 9 (>60); eGFR NON BLACK RACES 7 (>60)
--- NOTE | 2017-04-22 17:51 | CT ---
CT of the chest without contrast CT of the abdomen and pelvis without contrast Indication: Shortness of breath. Comparison: CT of the chest done March 15, 2017. 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 The T6 compression fracture with 90% loss of vertebral body height is unchanged from the prior exam. There is marked increase in kyphosis at the T5-T6 level. The T12 fracture with 9 0% loss of vertebral body height is unchanged. There is diffuse osteopenia and multilevel discogenic degenerative disease Subcutaneous tissues: There is an anterior ventral hernia containing loops of both large and small richi wel minimal mesenteric stranding. No evidence of ileus or obstruction is seen . Vasculature: The aorta shows atherosclerotic disease without aneurysmal dilatation. Chest: There is a large hiatal hernia containing the entire stomach and proximal duodenum as well as the splenic flexure. There is atelectasis of the left lower lobe. The right lung is clear except for two 4 mm right lower lobe nodules. There is nodular opacities along the minor fissure. There is compr ession of the bronchus to the left lower lobe due to the hiatal hernia. The remaining airway is paten t. No pleural effusion is seen. Abdomen: Given the limited sensitivity for a noncontrast exam the liver, spleen, left kidney and panc reas are unremarkable. The gallbladder is been removed. The right kidney demonstrates lower pole hype rdense 1.3 cm lesion. Pelvis: There has been prior bowel surgery. The urinary bladder is collapsed is been a hysterectomy. There is no free pelvic fluid or adenopathy. Conclusion: 1. Acute to subacute T5 vertebral body fracture with no change in the T6 and T12 vertebral body fract ures. There is increased kyphosis at T5-T6 due to the vertebral body fractures with greater than 90% loss of vertebral body height. 2. Large ventral hernia containing loops of large and small bowel with signs of mild inflammation but no evidence of obstruction, unchanged. 3. Large hiatal hernia containing the entire stomach, proximal duodenum and splenic flexure, unchange d. 4. Hyperdense right renal lower pole lesion may represent a hemorrhagic cyst however small renal cell carcinomas can have a similar appearance. Close follow-up three-phase CT scan is recommended to docu ment stability. This was not clearly identified on the prior CT. Reported By:
[2017-04-22] MEDS ORDERED: NS 1000 ML 1,000 ML ONE (18:06)
[2017-04-22] MEDS ORDERED: D50W ABBOJECT SYR IV ONE (18:45)
[2017-04-22] MEDS ORDERED: HumuLIN R IV ONE (18:46)
[2017-04-22] MEDS ORDERED: D50W ABBOJECT SYR ONE (19:01)
[2017-04-22] MEDS ORDERED: HumuLIN R ONE (19:02)
[2017-04-22] MEDS: NS 1000 ML 1,000 ML IV SCH (21:31)
[2017-04-22 21:52] LABS: BILIRUBIN,URINE 3+ (NEGATIVE); BLOOD/HEMOGLOBIN,URINE 1+ (NEGATIVE); GLUCOSE, URINE NEGATIVE (NEGATIVE); KETONES,URINE 2+ (NEGATIVE); LEUKOCYTE ESTERASE ,URINE 2+ (NEGATIVE); NITRITES,URINE NEGATIVE (NEGATIVE); PROTEIN,URINE 2+ (NEGATIVE); UROBILINOGEN,URINE NORMAL (NORMAL)
[2017-04-22] MEDS: SNACK - Diabetic Appropriate PO SCH (22:52)
[2017-04-22 23:17] LABS: APPEARANCE,URINE HAZY (CLEAR); BACTERIA,URINE 1+ /HPF (NEGATIVE); COLOR,URINE YELLOW (YELLOW); SQUAMOUS EPITHELIAL CELL,UR RARE /HPF (NEGATIVE)
[2017-04-22] MEDS ORDERED: TOBRAMYCIN SULFATE 80 MG in NS 100 ML IV 100 ML IV ONE (23:43)
[2017-04-22] MEDS ORDERED: NS 500 ML IV 500 ML IV ONE (23:46)
[2017-04-23] MEDS: ROCEPHIN VIAL 1 GM 1 GM in NS 100 ML IV + SPIKE MINIBAG* 100 ML IV SCH ×2 (00:01→11:59)
[2017-04-23] MEDS ORDERED: NS 100 ML IV + SPIKE MINIBAG* 0 ML IV ONE (00:49)
[2017-04-23] MEDS ORDERED: TOBRAMYCIN SULFATE ONE (00:49)
[2017-04-23] MEDS ORDERED: NS 100 ML IV 100 ML IV ONE (00:50)
[2017-04-23 02:37] LABS: CKMB % 2.1 % (<4); CREATINE KINASE 92 Units/L (26-192); CREATINE KINASE MB 1.9 ng/mL (0-4.0); TROPONIN I < 0.02 ng/mL (0-1.5)
[2017-04-23 06:23] LABS: BASOPHILS % (AUTO) 0.4 % (0.2-1.0); EOSINOPHILS % (AUTO) 0.4 % (0.9-2.9); HEMATOCRIT 30.4 % (36.0-47.0); HEMOGLOBIN 10.2 g/dL (12.0-16.0); LYMPHOCYTES # (AUTO) 1.1 X10^3/uL (1.3-2.9); LYMPHOCYTES % (AUTO) 12.3 % (21.0-51.0); MEAN CORPUSCULAR HEMOGLOBIN 32.2 pg (27.0-34.0); MEAN CORPUSCULAR HGB CONC 33.6 g/dL (33.0-35.0); MEAN CORPUSCULAR VOLUME 95.9 fL (80.0-100.0); MEAN PLATELET VOLUME 8.8 fL (7.4-11.0); MONOCYTES # (AUTO) 0.9 x10^3/uL (0.3-0.8); MONOCYTES % (AUTO) 9.7 % (0.0-13.0); NEUTROPHILS # (AUTO) 6.8 x10^3/uL (2.2-4.8); NEUTROPHILS % (AUTO) 77.2 % (42.0-75.0); PLATELET COUNT 194 X10^3/uL (150.0-450.0); RED BLOOD COUNT 3.17 X10^6/uL (3.5-5.4); RED CELL DISTRIBUTION WIDTH 13.4 % (11.6-16.5); WHITE BLOOD COUNT 8.9 X10^3/uL (3.6-10.0)
[2017-04-23 06:38] LABS: ALANINE AMINOTRANSFERASE 12 Units/L (12-78); ALBUMIN 2.4 g/dL (3.4-5.0); ALKALINE PHOSPHATASE 67 Units/L (46-116); BLOOD UREA NITROGEN 71 mg/dL (7-18); CALCIUM 8.3 mg/dL (8.5-10.1); CARBON DIOXIDE 18.3 mmol/L (21-32); CHLORIDE 101 mmol/L (98-107); CHOL/HDL RATIO 5.2 (0.0-5.0); CHOLESTEROL 162 mg/dL (0-200); COR CA(FOR HYPOALB) 9.6 mg/dL (8.5-10.1); CREATININE 4.58 mg/dL (0.55-1.02); HDL CHOLESTEROL 31 mg/dL (40-60); MAGNESIUM 3.3 mg/dL (1.7-2.9); SODIUM 135 mmol/L (136-145); TOTAL PROTEIN 6.3 g/dL (6.4-8.2); TRIGLYCERIDES 87 mg/dL (0-150); eGFR BLACK RACES 12 (>60); eGFR NON BLACK RACES 10 (>60)
[2017-04-23] MEDS: NS 1000 ML 1,000 ML IV SCH ×3 (06:40→22:02)
[2017-04-23 06:42] LABS: ASPARTATE AMINO TRANSFERASE 22 Units/L (15-37)
[2017-04-23 07:02] LABS: CKMB % 2.3 % (<4); CREATINE KINASE 123 Units/L (26-192); CREATINE KINASE MB 2.8 ng/mL (0-4.0); TROPONIN I < 0.02 ng/mL (0-1.5)
[2017-04-23] MEDS ORDERED: MAALOX or MYLANTA PO PRN (09:43)
[2017-04-23] MEDS ORDERED: NS 1000 ML 1,000 ML with SODIUM BICARBONATE 8.4% INJ ADULT 50 ML IV ONE ×2 (11:15)
[2017-04-23] MEDS ORDERED: SODIUM BICARBONATE 8.4% INJ ADULT IVP ONE (11:34)
[2017-04-23] MEDS: SNACK - Diabetic Appropriate PO SCH (21:59)
[2017-04-24] MEDS ORDERED: BUTT CREAM (COMPOUND) ONE (02:44)
[2017-04-24] MEDS: NS 1000 ML 1,000 ML IV SCH ×4 (05:21→20:10)
[2017-04-24 07:36] LABS: ALBUMIN 2.3 g/dL (3.4-5.0); CALCIUM 8.1 mg/dL (8.5-10.1); CARBON DIOXIDE 21.3 mmol/L (21-32); COR CA(FOR HYPOALB) 9.5 mg/dL (8.5-10.1); CREATININE 2.1 mg/dL (0.55-1.02)
[2017-04-24 07:39] VITALS: BMI 28.1
[2017-04-24 07:44] LABS: BASOPHILS % (AUTO) 0.2 % (0.2-1.0); EOSINOPHILS % (AUTO) 0.3 % (0.9-2.9); HEMATOCRIT 31.9 % (36.0-47.0); HEMOGLOBIN 10.7 g/dL (12.0-16.0); LYMPHOCYTES % (AUTO) 11.9 % (21.0-51.0); MEAN CORPUSCULAR HGB CONC 33.5 g/dL (33.0-35.0); MEAN CORPUSCULAR VOLUME 95.6 fL (80.0-100.0); MEAN PLATELET VOLUME 8.2 fL (7.4-11.0); MONOCYTES # (AUTO) 0.9 x10^3/uL (0.3-0.8); MONOCYTES % (AUTO) 10.6 % (0.0-13.0); NEUTROPHILS # (AUTO) 6.2 x10^3/uL (2.2-4.8); PLATELET COUNT 178 X10^3/uL (150.0-450.0); RED BLOOD COUNT 3.34 X10^6/uL (3.5-5.4); RED CELL DISTRIBUTION WIDTH 13.5 % (11.6-16.5)
[2017-04-24] MEDS: ROCEPHIN VIAL 1 GM 1 GM in NS 100 ML IV + SPIKE MINIBAG* 100 ML IV SCH (09:03)
[2017-04-24] MEDS: NORCO 5/325 MG TAB PO PRN (11:00)
[2017-04-24] MEDS: PriLOSEC PO SCH (14:09)
[2017-04-24] MEDS: TOPROL XL PO SCH ×2 (14:09→20:10)
[2017-04-24] MEDS: SNACK - Diabetic Appropriate PO SCH (20:10)
[2017-04-24] MEDS: COLACE CAP 100 MG PO SCH (20:11)
[2017-04-24] MEDS: MILK OF MAGNESIA PO SCH (20:11)
[2017-04-24] MEDS: ULTRAM PO PRN (21:35)
[2017-04-25] MEDS ORDERED: BUTT CREAM (COMPOUND) TOP PRN (00:20)
[2017-04-25] MEDS: NORCO 5/325 MG TAB PO PRN (05:53)
[2017-04-25] MEDS: NS 1000 ML 1,000 ML IV SCH ×4 (06:10→22:01)
[2017-04-25 06:26] LABS: BASOPHILS % (AUTO) 0.3 % (0.2-1.0); EOSINOPHILS # (AUTO) 0.1 x10^3/uL (0.0-0.2); EOSINOPHILS % (AUTO) 0.9 % (0.9-2.9); HEMATOCRIT 29.8 % (36.0-47.0); HEMOGLOBIN 10.1 g/dL (12.0-16.0); LYMPHOCYTES # (AUTO) 1.4 X10^3/uL (1.3-2.9); LYMPHOCYTES % (AUTO) 17.5 % (21.0-51.0); MEAN CORPUSCULAR HEMOGLOBIN 32.1 pg (27.0-34.0); MEAN CORPUSCULAR HGB CONC 33.9 g/dL (33.0-35.0); MEAN CORPUSCULAR VOLUME 94.7 fL (80.0-100.0); MEAN PLATELET VOLUME 8.9 fL (7.4-11.0); MONOCYTES # (AUTO) 0.8 x10^3/uL (0.3-0.8); MONOCYTES % (AUTO) 10.8 % (0.0-13.0); NEUTROPHILS # (AUTO) 5.5 x10^3/uL (2.2-4.8); NEUTROPHILS % (AUTO) 70.5 % (42.0-75.0); PLATELET COUNT 163 X10^3/uL (150.0-450.0); RED BLOOD COUNT 3.15 X10^6/uL (3.5-5.4); RED CELL DISTRIBUTION WIDTH 13.8 % (11.6-16.5); WHITE BLOOD COUNT 7.9 X10^3/uL (3.6-10.0)
[2017-04-25 06:37] LABS: ALANINE AMINOTRANSFERASE 9 Units/L (12-78); ALKALINE PHOSPHATASE 61 Units/L (46-116); ASPARTATE AMINO TRANSFERASE 20 Units/L (15-37); BLOOD UREA NITROGEN 32 mg/dL (7-18); CALCIUM 8.3 mg/dL (8.5-10.1); CARBON DIOXIDE 25.2 mmol/L (21-32); CHLORIDE 112 mmol/L (98-107); COR CA(FOR HYPOALB) 9.9 mg/dL (8.5-10.1); COR NA(FOR HYPERGLY) 144 mmol/L (136-145); CREATININE 1.11 mg/dL (0.55-1.02); SODIUM 144 mmol/L (136-145); TOTAL PROTEIN 5.6 g/dL (6.4-8.2); eGFR BLACK RACES > 60 (>60); eGFR NON BLACK RACES 50 (>60)
[2017-04-25] MEDS: PriLOSEC PO SCH (08:30)
[2017-04-25] MEDS: ROCEPHIN VIAL 1 GM 1 GM in NS 100 ML IV + SPIKE MINIBAG* 100 ML IV SCH (08:30)
[2017-04-25] MEDS: TOPROL XL PO SCH ×2 (08:30→21:26)
[2017-04-25] MEDS: ULTRAM PO PRN (08:34)
--- NOTE | 2017-04-25 08:59 | RAD ---
HISTORY: Chest pain, no lung sounds left chapin thorax Study: Chest AP portable Comparison: 03/26/2017, chest CT 04/22/2017 Findings: The heart appears upper limits normal in size. No congestive heart failure is noted. The right lung i s hyperinflated but clear. There is elevation of the left hemidiaphragm and a hiatal hernia present. The visualized left lung is free of acute infiltrates. No pleural effusions are identified. The bony thorax is unremarkable. IMPRESSION: No definite infiltrates Elevated left hemidiaphragm, chronic Large hiatal hernia Reported By:
[2017-04-25] MEDS ORDERED: DILAUDID INJ ONE (09:28)
[2017-04-25] MEDS: DILAUDID INJ IVP PRN ×3 (09:29→21:24)
[2017-04-25] MEDS: MILK OF MAGNESIA PO SCH ×2 (09:59→21:09)
[2017-04-25] MEDS: PEPCID 20 MG IV PREMIX* 20 MG/50 ML BAG IV SCH ×2 (10:00→21:25)
[2017-04-25] MEDS: PROTONIX INJ 40 MG VIAL IVP SCH ×2 (10:00→21:25)
--- NOTE | 2017-04-25 10:42 | DR.H&P ---
H&P - History & Physical for Day of: H&P Date: 04/22/17 - Chief Complaint Chief Complaint: altered mental status, generalized weakness, decreased appetite - Allergies Allergies/Adverse Reactions: Allergies Allergy/AdvReac Type Severity Reaction Status Date / Time morphine Allergy Verified 10/15/16 19:44 - History of Present Illness History of Present Illness: is a 86 year old patient of ours who presented to hospital ER via EMS complains altered mental status, generalized weakness, and decreased appetite. Patient reports that she was discharged from the hospital a few weeks ago and has progressively gotten weaker and more confused. Family reports that patient is refusing her medications and food. Patient reports that her pharmacist discontinued some of her medications. Associated symptoms include weakness, fatigue, non-productive cough, shortness of breath, generalized edema, chest pain, back pain, and epigastric pain. Medical history includes CHF, CVA, GERDS, Hypertension, and Arthritis. On examination, she is noted with generalized, non-pitting edema. Heart is regular in rate and rhythm. Bilateral lungs are noted with rhonchi throughout. Abdomen is round, soft, and noted with epigastric pain on palpation. On arrival, her vitals were 97.6, 95, 20, 99RA, 77/49. Labs were obtained. Abnormal lab values include the following: HGB 11.4, HCT 34.2, Sod 131, Potassium 6.1, @ 17.10, 6.3 @ 18:20, Chloride 96, BUN 74, Creatinine 5.99, GFR Non AF 7, C-Reative Protein 5.80, Albumin 3.2, Albumin/Globulin Ratio 0.8. Urinalysis reported: Catharized Color Yellow, Appearance Hazy, Protein 2+, Occult Blood 1+, Bilirubin 3+, Leukocyte Esterase 2+, RBC 2-6, WBC 20-30, Bacteria 1+, Culture set up. Urine culture and blood cultures are pending. EKG reported Rate 79 Sinus Rhythm. An abdomen/pelvis CT was obtained and reported: 1. Acute to subacute T5 Vertebral body fracture with no change in the T6 and T 12, vertebral body fractures. There is increase kyphosis at T5-T6 and T12 vertebral body fractures the vertebral body fractures with greater than 90% loss of vertebral body height. 2. Large ventral hernia containing loops of large and small bowel with signs of mild inflammation but no evidence of obstruction. 3.Large hiatal hernia containing the entire stomach, proximal duodenum and splenic flexure, unchanged. 4. Hyperdense right renal lower pole lesion may represent a hemorrhagic cyst however small renal cell carcinoma can have similar appearance. Close follow up three phase CT scan is recommended to document stability. This was not clearly defined on prior CT. She was given an IV bolus of NS 1000ml infused @ 999mls/hour for hypotension and a 1 time does of Hum R 10units IV and D50 25gm IV X 1 for elevated potassium. We admitted patient for further treatment and evaluation. We plan to follow up with AM labs and chest xray in the morning. She was started on rocephin 1gm iv daily and normal saline at 100ml/hr. - Past Medical History Past Medical History: Arthritis, CHF, CVA, GERD, Hypertension Additional Medical History: Hx recent UTI, Hiatal Hernia, Hx Diverticulosis, Hx recent Diverticulitis/Pericolonic absess - Past Surgical History Surgical History: Abdominal Surgery, Bowel Resection, Cholecystectomy, Hysterectomy, Joint Replacement, Other - Family History Family Medical History: Cancer, Heart Failure, Hypertension - Social History Does patient currently use any type of tobacco product: No Have you used tobacco products in the last 12 months: No Type of Tobacco Use: None Does any household member use tobacco: No Alcohol Use: None - Medications Home Medications: Butalb/Acetaminophen/Caffeine [Higwio-Ehglomsn-Vylj 50-325-40] 1 tab PO QID 11/29 [History Confirmed 04/22/17] Meclizine HCl 1 tab PO DAILY 04/22/17 [History Confirmed 04/22/17] - Review of Systems Constitutional: Weakness, Malaise, Other (loss of appetite) Eyes: No Symptoms Reported ENT: No Symptoms Reported Respiratory: Cough, Shortness of Breath Cardiovascular: Chest Pain, Edema Gastrointestinal: Abdominal Pain Genitourinary: No Symptoms Reported Musculoskeletal: Back Pain (paraspinous back pain ) Skin: No Symptoms Reported Neurological: See HPI, Weakness, Confusion - Physical Exam Vital Signs: Temperature 98.7 F Pulse Rate [Right Brachial] 109 Pulse Rate 18 Respiratory Rate 21 Blood Pressure [Right Arm] 105/75 Blood Pressure [Left Arm] 127/58 Blood Pressure 96/67 O2 Sat by Pulse Oximetry 97 Oriented: Person Eyes: Normal Ear: Normal Nose: Normal Throat: Normal Respiratory: Rhonchi Throughout Cardiovascular: Edema : Normal Auscultation: Bowel Sounds: Normal Palpation: Normal Tenderness: Epigastric, Mild Skin: Normal Musculoskeletal: Normal, Back:Paraspinous Psychiatric: Normal Mood Description: Calm Affect: Normal Speech Pattern: Clear - Assessment/Plan (1) UTI (urinary tract infection) Qualifiers: Urinary tract infection type: acute cystitis Hematuria presence: without hematuria Qualified Code(s): N30.00 - Acute cystitis without hematuria Status: Acute Plan: rocephin 1gm iv daily, normal saline at 100ml/hr, continue to monitor (2) Acute renal failure Qualifiers: Acute renal failure type: unspecified Qualified Code(s): N17.9 - Acute kidney failure, unspecified Status: Acute Plan: normal saline at 100ml/hr, continue to monitor (3) Hyperkalemia Status: Acute (4) Generalized weakness Status: Acute (5) Altered mental state Qualifiers: Altered mental status type: transient alteration of awareness Qualified Code(s): R40.4 - Transient alteration of awareness Status: Acute Plan: abx for UTI, continue to monitor
--- NOTE | 2017-04-25 13:22 | PCM.PROG ---
Progress Note - Progress Note for Day of Date: 04/23/17 - Subjective Subjective: IS BEING TREATED FOR A URINARY TRACT INFECTION, ACUTE RENAL FAILURE, DEHYDRATION, AND HYPERKALEMIA. TODAY, SHE IS LYING IN BED WITH EYES CLOSED ON MORNING ROUNDS. SHE AWAKENS AND RESPONDS TO VERBAL STIMULI. SHE CONTINUES WITH DISORIENTATION. SHE REPORTS COMPLAINTS OF INDIGESTION AND HEARTBURN. PATIENT RECEIVED A 500 ML BOLUS OF NORMAL SALINE THROUGHOUT THE NIGHT FOR DECREASED BLOOD PRESSURE. ON EXAMINATION, HEART IS REGULAR IN RATE AND RHYTHM. BILATERAL LUNGS CONTINUE WITH RHONCHI THROUGHOUT. ABDOMEN IS ROUND, SOFT, AND CONTINUES WITH EPIGASTRIC TENDERNESS. THERE IS A OQUENDO CATHETER NOTED TO BEDSIDE DRAINAGE. SHE CONTINUES WITH GENERALIZED EDEMA. HER VITALS THIS MORNING ARE 97.9-97-25-98%-101/59. LABS WERE OBTAINED. ABNORMAL LAB VALUES INCLUDE THE FOLLOWING: RBC 3.17, HGB 10.2, HCT 30.4, SODIUM 135, POTASSIUM 5.8, CARBON DIOXIDE 18.3, BUN 71, CREATININE 4.58, CALCIUM 8.3, MAGNESIUM 3.3, TOTAL PROTEIN 6.3, ALBUMIN 2.4, LDL CHOLESTEROL 114, HCL 31, CHOLESTEROL/HDL RATIO 5.2. CARDIAC ENZYMES HAVE BEEN WITHIN NORMAL LIMITS. TODAY, WE WILL START MAALOX 30ML PO Q4H PRN. SHE CONTINUES TO RECEIVE ROCEPHIN 1GM IV DAILY FOR UTI. WE WILL CONTINUE WITH CURRENT PLAN OF CARE TODAY. WE PLAN TO FOLLOW UP WITH AM LABS AND CONTINUE TO MONITOR PATIENT. - Past Medical Family Social History Past Med/Fam/Surg Hx: No changes since H&P Allergies: Allergies morphine Allergy (Verified 10/15/16 19:44) - Review of Systems ROS: No change since H&P - Vital Signs and I&O's Vital Signs: Temperature 97.8 F Pulse Rate [Right Brachial] 90 Pulse Rate 18 Respiratory Rate 23 Blood Pressure [Right Arm] 104/71 Blood Pressure [Left Arm] 127/58 Blood Pressure 96/67 O2 Sat by Pulse Oximetry 99 Intake and Output: Intake & Output 04/23/17 04/24/17 04/25/17 04/26/17 11:59 11:59 11:59 11:59 Intake Total 1728 3411 3045 Output Total 275 1100 1250 Balance 1453 2311 1795 - Physical Exam Oriented: Person Eyes: Normal Ear: Normal Nose: Normal Throat: Normal Respiratory: Right, Left, Generalized, Rhonchi Cardiovascular: Edema : Normal Auscultation: Bowel Sounds: Normal Palpation: Normal Tenderness: Epigastric, Mild Skin: Normal Musculoskeletal: Normal, Back:Paraspinous Psychiatric: Normal Mood Description: Calm Affect: Normal Speech Pattern: Clear - Laboratory and Diagnostics Result Diagrams: 04/25/17 05:43 04/25/17 05:43 Labs: 04/22/17 21:30 Urine,Catheterized Urine Culture - Final 04/22/17 17:20 Blood Blood Culture - Preliminary 04/22/17 17:10 Blood Blood Culture - Preliminary Laboratory WBC 7.9 X10^3/uL (3.6-10.0) 04/25/17 05:43 RBC 3.15 X10^6/uL (3.5-5.4) L 04/25/17 05:43 Hgb 10.1 g/dL (12.0-16.0) L 04/25/17 05:43 Hct 29.8 % (36.0-47.0) L 04/25/17 05:43 MCV 94.7 fL (80.0-100.0) 04/25/17 05:43 MCH 32.1 pg (27.0-34.0) 04/25/17 05:43 MCHC 33.9 g/dL (33.0-35.0) 04/25/17 05:43 RDW 13.8 % (11.6-16.5) 04/25/17 05:43 Plt Count 163 X10^3/uL (150.0-450.0) 04/25/17 05:43 MPV 8.9 fL (7.4-11.0) 04/25/17 05:43 Neut % 70.5 % (42.0-75.0) 04/25/17 05:43 Lymph % 17.5 % (21.0-51.0) L 04/25/17 05:43 [place] % 10.8 % (0.0-13.0) 04/25/17 05:43 Eos % 0.9 % (0.9-2.9) 04/25/17 05:43 Baso % 0.3 % (0.2-1.0) 04/25/17 05:43 Neut # 5.5 x10^3/uL (2.2-4.8) H 04/25/17 05:43 Lymph # 1.4 X10^3/uL (1.3-2.9) 04/25/17 05:43 [place] # 0.8 x10^3/uL (0.3-0.8) 04/25/17 05:43 Eos # 0.1 x10^3/uL (0.0-0.2) 04/25/17 05:43 Baso # 0.0 X10^3/uL (0.0-0.1) 04/25/17 05:43 Absolute Nucleated RBC 0.0 /100WBC 04/25/17 05:43 INR Target Range - 04/23/17 05:45 INR 1.14 (0.8-1.3) 04/23/17 05:45 PTT 32.0 SECONDS (22.9-36.5) 04/23/17 05:45 PTT Comment - 04/23/17 05:45 Sodium 144 mmol/L (136-145) 04/25/17 05:43 Corrected Sodium 144 mmol/L (136-145) 04/25/17 05:43 Potassium 4.1 mmol/L (3.5-5.1) 04/25/17 05:43 Chloride 112 mmol/L (98-107) H 04/25/17 05:43 Carbon Dioxide 25.2 mmol/L (21-32) 04/25/17 05:43 BUN 32 mg/dL (7-18) H 04/25/17 05:43 Creatinine 1.11 mg/dL (0.55-1.02) H 04/25/17 05:43 Est GFR (MDRD) Af Amer > 60 (>60) 04/25/17 05:43 Est GFR (MDRD) Non-Af 50 (>60) L 04/25/17 05:43 Glucose 120 mg/dL (65-99) H 04/25/17 05:43 POC Glucose (mg/dL) 73 mg/dL (65-99) 04/22/17 22:55 Lactic Acid 0.9 mmol/L (0.4-2.0) 04/22/17 17:10 Calcium 8.3 mg/dL (8.5-10.1) L 04/25/17 05:43 Corrected Calcium 9.9 mg/dL (8.5-10.1) 04/25/17 05:43 Magnesium 3.3 mg/dL (1.7-2.9) H 04/23/17 05:45 Total Bilirubin 0.20 mg/dL (0.2-1.0) 04/25/17 05:43 AST 20 Units/L (15-37) 04/25/17 05:43 ALT 9 Units/L (12-78) L 04/25/17 05:43 Alkaline Phosphatase 61 Units/L (46-116) 04/25/17 05:43 Creatine Kinase 123 Units/L (26-192) 04/23/17 05:45 CK-MB (CK-2) 2.8 ng/mL (0-4.0) 04/23/17 05:45 CK/CKMB % Calc 2.3 % (<4) 04/23/17 05:45 Troponin I < 0.02 ng/mL (0-1.5) 04/23/17 05:45 C-Reactive Protein 5.80 mg/L (0-3.0) H 04/22/17 17:10 Total Protein 5.6 g/dL (6.4-8.2) L 04/25/17 05:43 Albumin 2.0 g/dL (3.4-5.0) L 04/25/17 05:43 Globulin 3.6 g/dL (2.5-4.5) 04/25/17 05:43 Albumin/Globulin Ratio 0.6 Ratio (1.1-2.1) L 04/25/17 05:43 Triglycerides 87 mg/dL (0-150) 04/23/17 05:45 Cholesterol 162 mg/dL (0-200) 04/23/17 05:45 LDL Cholesterol, Calc 114 mg/dL (0-100) H 04/23/17 05:45 HDL Cholesterol 31 mg/dL (40-60) L 04/23/17 05:45 Cholesterol/HDL Ratio 5.2 (0.0-5.0) H 04/23/17 05:45 Specimen Type Catherized urine 04/22/17 21:30 Urine Color Yellow (YELLOW) 04/22/17 21:30 Urine Appearance Hazy (CLEAR) 04/22/17 21:30 Urine pH 5.0 (5.0 - 8.0) 04/22/17 21:30 Ur Specific [place] 1.020 (1.000-1.030) 04/22/17 21:30 Urine Protein 2+ (NEGATIVE) 04/22/17 21:30 Urine Glucose (UA) Negative (NEGATIVE) 04/22/17 21:30 Urine Ketones 2+ (NEGATIVE) 04/22/17 21:30 Urine Occult Blood 1+ (NEGATIVE) 04/22/17 21:30 Urine Nitrite Negative (NEGATIVE) 04/22/17 21:30 Urine Bilirubin 3+ (NEGATIVE) 04/22/17 21:30 Urine Urobilinogen Normal (NORMAL) 04/22/17 21:30 Ur Leukocyte Esterase 2+ (NEGATIVE) 04/22/17 21:30 Urine RBC 2-6 /HPF (NEGATIVE) 04/22/17 21:30 Urine WBC 20-30 /HPF (NEGATIVE) 04/22/17 21:30 Ur Squamous Epith Cells Rare /HPF (NEGATIVE) 04/22/17 21:30 Urine Bacteria 1+ /HPF (NEGATIVE) 04/22/17 21:30 Ur Culture Indicated? Yes/culture set up 04/22/17 21:30 - Plan (1) UTI (urinary tract infection) Status: Acute Qualifiers: Urinary tract infection type: acute cystitis Hematuria presence: without hematuria Qualified Code(s): N30.00 - Acute cystitis without hematuria Plan: rocephin 1gm iv daily, normal saline at 100ml/hr, continue to monitor (2) Acute renal failure Status: Acute Qualifiers: Acute renal failure type: unspecified Qualified Code(s): N17.9 - Acute kidney failure, unspecified Plan: normal saline at 100ml/hr, continue to monitor (3) Hyperkalemia Status: Acute (4) Generalized weakness Status: Acute (5) Altered mental state Status: Acute Qualifiers: Altered mental status type: transient alteration of awareness Qualified Code(s): R40.4 - Transient alteration of awareness Plan: abx for UTI, continue to monitor
[2017-04-25] MEDS ORDERED: ZOFRAN INJ 4 MG VIAL ONE (14:44)
[2017-04-25] MEDS ORDERED: ZOFRAN INJ 4 MG VIAL IVP PRN (14:47)
[2017-04-25] MEDS: SNACK - Diabetic Appropriate PO SCH (21:09)
[2017-04-25] MEDS: COLACE CAP 100 MG PO SCH (21:09)
[2017-04-26] MEDS: DILAUDID INJ IVP PRN ×3 (04:41→21:41)
[2017-04-26] MEDS: NS 1000 ML 1,000 ML IV SCH ×4 (05:17→22:25)
[2017-04-26 06:20] LABS: BASOPHILS # (AUTO) 0.1 X10^3/uL (0.0-0.1); BASOPHILS % (AUTO) 0.6 % (0.2-1.0); EOSINOPHILS # (AUTO) 0.1 x10^3/uL (0.0-0.2); EOSINOPHILS % (AUTO) 0.6 % (0.9-2.9); HEMATOCRIT 34.2 % (36.0-47.0); HEMOGLOBIN 11.1 g/dL (12.0-16.0); LYMPHOCYTES # (AUTO) 1.1 X10^3/uL (1.3-2.9); MEAN CORPUSCULAR HEMOGLOBIN 31.9 pg (27.0-34.0); MEAN CORPUSCULAR HGB CONC 32.6 g/dL (33.0-35.0); MEAN PLATELET VOLUME 8.9 fL (7.4-11.0); MONOCYTES % (AUTO) 9.1 % (0.0-13.0); NEUTROPHILS # (AUTO) 8.6 x10^3/uL (2.2-4.8); NEUTROPHILS % (AUTO) 79.7 % (42.0-75.0); PLATELET COUNT 162 X10^3/uL (150.0-450.0); RED BLOOD COUNT 3.49 X10^6/uL (3.5-5.4); RED CELL DISTRIBUTION WIDTH 14.3 % (11.6-16.5); WHITE BLOOD COUNT 10.8 X10^3/uL (3.6-10.0)
[2017-04-26 06:53] LABS: ALANINE AMINOTRANSFERASE 16 Units/L (12-78); ALBUMIN 2.1 g/dL (3.4-5.0); ALKALINE PHOSPHATASE 67 Units/L (46-116); ASPARTATE AMINO TRANSFERASE 27 Units/L (15-37); BLOOD UREA NITROGEN 29 mg/dL (7-18); CALCIUM 8.4 mg/dL (8.5-10.1); CARBON DIOXIDE 22.6 mmol/L (21-32); CHLORIDE 113 mmol/L (98-107); COR CA(FOR HYPOALB) 9.9 mg/dL (8.5-10.1); COR NA(FOR HYPERGLY) 146 mmol/L (136-145); CREATININE 1.01 mg/dL (0.55-1.02); SODIUM 145 mmol/L (136-145); TOTAL PROTEIN 6.1 g/dL (6.4-8.2); eGFR BLACK RACES > 60 (>60); eGFR NON BLACK RACES 55 (>60)
[2017-04-26] MEDS: ROCEPHIN VIAL 1 GM 1 GM in NS 100 ML IV + SPIKE MINIBAG* 100 ML IV SCH (08:34)
[2017-04-26] MEDS: PEPCID 20 MG IV PREMIX* 20 MG/50 ML BAG IV SCH ×2 (08:34→22:25)
[2017-04-26] MEDS: MILK OF MAGNESIA PO SCH ×2 (08:35→22:24)
[2017-04-26] MEDS: TOPROL XL PO SCH ×2 (08:35→21:40)
[2017-04-26] MEDS: PROTONIX INJ 40 MG VIAL IVP SCH ×2 (08:35→21:45)
[2017-04-26] MEDS ORDERED: REGLAN TAB 10 MG PO ONE (10:48)
[2017-04-26] MEDS: REGLAN TAB 10 MG PO SCH ×4 (11:27→21:40)
--- NOTE | 2017-04-26 12:41 | PCM.PROG ---
Progress Note - Progress Note for Day of Date: 04/24/17 - Subjective Subjective: IS BEING TREATED FOR A URINARY TRACT INFECTION, ACUTE RENAL FAILURE, DEHYDRATION, AND HYPERKALEMIA. TODAY, SHE IS LYING IN BED WITH EYES CLOSED ON MORNING ROUNDS. SHE AWAKENS AND RESPONDS TO VERBAL STIMULI. FAMILY REPORTS INTERMITTENT CONFUSION THROUGHOUT THE NIGHT AND THIS MORNING. SHE REPORTS COMPLAINTS OF EPIGASTRIC PAIN AT THIS TIME. ON EXAMINATION, HEART IS REGULAR IN RATE AND RHYTHM. BILATERAL LUNGS CONTINUE WITH RHONCHI THROUGHOUT. ABDOMEN IS ROUND, SOFT, AND CONTINUES WITH EPIGASTRIC TENDERNESS TO PALPATION. THERE IS A OQUENDO CATHETER NOTED TO BEDSIDE DRAINAGE. HYPOACTIVE BOWEL SOUNDS NOTED IN ALL QUADRANTS. SHE CONTINUES WITH GENERALIZED EDEMA. HER VITALS THIS MORNING ARE 98.8-119-22-97%-127/70. LABS WERE OBTAINED. ABNORMAL LAB VALUES INCLUDE THE FOLLOWING: RBC 3.34, HGB 10.7, HCT 31.9, BUN 48, CREATININE 2.10, GLUCOSE 122, CALCIUM 8.1, TOTAL PROTEIN 6.0, ALBUMIN 2.3. SHE DENIES A BOWEL MOVEMENT IN SEVERAL DAYS. WE WILL ORDER A BOWEL REGIMEN TODAY. SHE CONTINUES TO RECEIVE ROCEPHIN 1GM IV DAILY FOR A URINARY TRACT INFECTION. WE WILL CONTINUE WITH CURRENT PLAN OF CARE TODAY. WE PLAN TO FOLLOW UP WITH AM LABS AND CONTINUE TO MONITOR PATIENT. - Past Medical Family Social History Past Med/Fam/Surg Hx: No changes since H&P Allergies: Allergies morphine Allergy (Verified 10/15/16 19:44) - Review of Systems ROS: No change since H&P - Vital Signs and I&O's Vital Signs: Temperature 97.2 F Pulse Rate [Right Brachial] 80 Pulse Rate 18 Respiratory Rate 15 Blood Pressure [Right Arm] 96/63 Blood Pressure [Left Arm] 127/58 Blood Pressure 96/67 O2 Sat by Pulse Oximetry 100 Intake and Output: Intake & Output 04/24/17 04/25/17 04/26/17 04/27/17 11:59 11:59 11:59 11:59 Intake Total 3411 3045 2040 Output Total 1100 1250 375 Balance 2311 1795 1665 - Physical Exam Oriented: Normal Eyes: Normal Ear: Normal Nose: Normal Throat: Normal Respiratory: Right, Left, Generalized, Rhonchi Cardiovascular: Edema : Normal Auscultation: Bowel Sounds: Normal Palpation: Normal Tenderness: Epigastric, Mild Skin: Normal Musculoskeletal: Normal, Back:Paraspinous Psychiatric: Normal Mood Description: Calm Affect: Normal Speech Pattern: Clear, Inappropriate - Laboratory and Diagnostics Result Diagrams: 04/26/17 05:26 04/26/17 05:26 Labs: 04/22/17 21:30 Urine,Catheterized Urine Culture - Final 04/22/17 17:20 Blood Blood Culture - Preliminary 04/22/17 17:10 Blood Blood Culture - Preliminary Laboratory WBC 10.8 X10^3/uL (3.6-10.0) H 04/26/17 05:26 RBC 3.49 X10^6/uL (3.5-5.4) L 04/26/17 05:26 Hgb 11.1 g/dL (12.0-16.0) L 04/26/17 05:26 Hct 34.2 % (36.0-47.0) L 04/26/17 05:26 MCV 98.0 fL (80.0-100.0) 04/26/17 05:26 MCH 31.9 pg (27.0-34.0) 04/26/17 05:26 MCHC 32.6 g/dL (33.0-35.0) L 04/26/17 05:26 RDW 14.3 % (11.6-16.5) 04/26/17 05:26 Plt Count 162 X10^3/uL (150.0-450.0) 04/26/17 05:26 MPV 8.9 fL (7.4-11.0) 04/26/17 05:26 Neut % 79.7 % (42.0-75.0) H 04/26/17 05:26 Lymph % 10.0 % (21.0-51.0) L 04/26/17 05:26 [place] % 9.1 % (0.0-13.0) 04/26/17 05:26 Eos % 0.6 % (0.9-2.9) L 04/26/17 05:26 Baso % 0.6 % (0.2-1.0) 04/26/17 05:26 Neut # 8.6 x10^3/uL (2.2-4.8) H 04/26/17 05:26 Lymph # 1.1 X10^3/uL (1.3-2.9) L 04/26/17 05:26 [place] # 1.0 x10^3/uL (0.3-0.8) H 04/26/17 05:26 Eos # 0.1 x10^3/uL (0.0-0.2) 04/26/17 05:26 Baso # 0.1 X10^3/uL (0.0-0.1) 04/26/17 05:26 Absolute Nucleated RBC 0.1 /100WBC 04/26/17 05:26 INR Target Range - 04/23/17 05:45 INR 1.14 (0.8-1.3) 04/23/17 05:45 PTT 32.0 SECONDS (22.9-36.5) 04/23/17 05:45 PTT Comment - 04/23/17 05:45 Sodium 145 mmol/L (136-145) 04/26/17 05:26 Corrected Sodium 146 mmol/L (136-145) H 04/26/17 05:26 Potassium 4.7 mmol/L (3.5-5.1) 04/26/17 05:26 Chloride 113 mmol/L (98-107) H 04/26/17 05:26 Carbon Dioxide 22.6 mmol/L (21-32) 04/26/17 05:26 BUN 29 mg/dL (7-18) H 04/26/17 05:26 Creatinine 1.01 mg/dL (0.55-1.02) 04/26/17 05:26 Est GFR (MDRD) Af Amer > 60 (>60) 04/26/17 05:26 Est GFR (MDRD) Non-Af 55 (>60) L 04/26/17 05:26 Glucose 123 mg/dL (65-99) H 04/26/17 05:26 POC Glucose (mg/dL) 73 mg/dL (65-99) 04/22/17 22:55 Lactic Acid 0.9 mmol/L (0.4-2.0) 04/22/17 17:10 Calcium 8.4 mg/dL (8.5-10.1) L 04/26/17 05:26 Corrected Calcium 9.9 mg/dL (8.5-10.1) 04/26/17 05:26 Magnesium 3.3 mg/dL (1.7-2.9) H 04/23/17 05:45 Total Bilirubin 0.20 mg/dL (0.2-1.0) 04/26/17 05:26 AST 27 Units/L (15-37) 04/26/17 05:26 ALT 16 Units/L (12-78) 04/26/17 05:26 Alkaline Phosphatase 67 Units/L (46-116) 04/26/17 05:26 Creatine Kinase 123 Units/L (26-192) 04/23/17 05:45 CK-MB (CK-2) 2.8 ng/mL (0-4.0) 04/23/17 05:45 CK/CKMB % Calc 2.3 % (<4) 04/23/17 05:45 Troponin I < 0.02 ng/mL (0-1.5) 04/23/17 05:45 C-Reactive Protein 5.80 mg/L (0-3.0) H 04/22/17 17:10 Total Protein 6.1 g/dL (6.4-8.2) L 04/26/17 05:26 Albumin 2.1 g/dL (3.4-5.0) L 04/26/17 05:26 Globulin 4.0 g/dL (2.5-4.5) 04/26/17 05:26 Albumin/Globulin Ratio 0.5 Ratio (1.1-2.1) L 04/26/17 05:26 Triglycerides 87 mg/dL (0-150) 04/23/17 05:45 Cholesterol 162 mg/dL (0-200) 04/23/17 05:45 LDL Cholesterol, Calc 114 mg/dL (0-100) H 04/23/17 05:45 HDL Cholesterol 31 mg/dL (40-60) L 04/23/17 05:45 Cholesterol/HDL Ratio 5.2 (0.0-5.0) H 04/23/17 05:45 Specimen Type Catherized urine 04/22/17 21:30 Urine Color Yellow (YELLOW) 04/22/17 21:30 Urine Appearance Hazy (CLEAR) 04/22/17 21:30 Urine pH 5.0 (5.0 - 8.0) 04/22/17 21:30 Ur Specific [place] 1.020 (1.000-1.030) 04/22/17 21:30 Urine Protein 2+ (NEGATIVE) 04/22/17 21:30 Urine Glucose (UA) Negative (NEGATIVE) 04/22/17 21:30 Urine Ketones 2+ (NEGATIVE) 04/22/17 21:30 Urine Occult Blood 1+ (NEGATIVE) 04/22/17 21:30 Urine Nitrite Negative (NEGATIVE) 04/22/17 21:30 Urine Bilirubin 3+ (NEGATIVE) 04/22/17 21:30 Urine Urobilinogen Normal (NORMAL) 04/22/17 21:30 Ur Leukocyte Esterase 2+ (NEGATIVE) 04/22/17 21:30 Urine RBC 2-6 /HPF (NEGATIVE) 04/22/17 21:30 Urine WBC 20-30 /HPF (NEGATIVE) 04/22/17 21:30 Ur Squamous Epith Cells Rare /HPF (NEGATIVE) 04/22/17 21:30 Urine Bacteria 1+ /HPF (NEGATIVE) 04/22/17 21:30 Ur Culture Indicated? Yes/culture set up 04/22/17 21:30 - Plan (1) UTI (urinary tract infection) Status: Inactive Qualifiers: Urinary tract infection type: acute cystitis Hematuria presence: without hematuria Qualified Code(s): N30.00 - Acute cystitis without hematuria Plan: rocephin 1gm iv daily, normal saline at 100ml/hr, continue to monitor (2) Acute renal failure Status: Acute Qualifiers: Acute renal failure type: unspecified Qualified Code(s): N17.9 - Acute kidney failure, unspecified Plan: normal saline at 100ml/hr, continue to monitor (3) Hyperkalemia Status: Acute (4) Generalized weakness Status: Acute (5) Altered mental state Status: Acute Qualifiers: Altered mental status type: transient alteration of awareness Qualified Code(s): R40.4 - Transient alteration of awareness Plan: abx for UTI, continue to monitor (6) Constipation Status: Acute Qualifiers: Constipation type: slow transit constipation Qualified Code(s): K59.01 - Slow transit constipation Plan: MILK OF MAGNESIA BID GRETEL, COLACE 200MG PO HS GRETEL, CONTINUE TO MONITOR
[2017-04-26] MEDS: COLACE CAP 100 MG PO SCH (21:40)
[2017-04-26] MEDS: SNACK - Diabetic Appropriate PO SCH (22:24)
[2017-04-27] MEDS: DILAUDID INJ IVP PRN ×4 (02:10→19:10)
--- NOTE | 2017-04-27 06:32 | RAD ---
HISTORY: Follow-up small bowel obstruction versus ileus abdominal pain Study: KUB Comparison: 04/01/2017 Findings: The abdominal gas pattern is nonspecific and nonobstructive. No abnormal masses or abnormal calcifica tions are identified. The regional skeleton is osteopenic but intact. IMPRESSION: Unremarkable KUB Reported By:
[2017-04-27 06:38] LABS: BASOPHILS % (AUTO) 0.5 % (0.2-1.0); EOSINOPHILS # (AUTO) 0.1 x10^3/uL (0.0-0.2); EOSINOPHILS % (AUTO) 0.6 % (0.9-2.9); HEMATOCRIT 35.5 % (36.0-47.0); HEMOGLOBIN 11.4 g/dL (12.0-16.0); LYMPHOCYTES # (AUTO) 1.3 X10^3/uL (1.3-2.9); LYMPHOCYTES % (AUTO) 13.2 % (21.0-51.0); MEAN CORPUSCULAR HEMOGLOBIN 31.7 pg (27.0-34.0); MONOCYTES # (AUTO) 1.1 x10^3/uL (0.3-0.8); MONOCYTES % (AUTO) 11.9 % (0.0-13.0); NEUTROPHILS % (AUTO) 73.8 % (42.0-75.0); PLATELET COUNT 129 X10^3/uL (150.0-450.0); RED BLOOD COUNT 3.59 X10^6/uL (3.5-5.4); RED CELL DISTRIBUTION WIDTH 14.1 % (11.6-16.5); WHITE BLOOD COUNT 9.5 X10^3/uL (3.6-10.0)
[2017-04-27 06:45] LABS: ALANINE AMINOTRANSFERASE 14 Units/L (12-78); ALBUMIN 2.1 g/dL (3.4-5.0); ALKALINE PHOSPHATASE 58 Units/L (46-116); ASPARTATE AMINO TRANSFERASE 17 Units/L (15-37); BLOOD UREA NITROGEN 27 mg/dL (7-18); CALCIUM 8.1 mg/dL (8.5-10.1); CARBON DIOXIDE 20.9 mmol/L (21-32); CHLORIDE 114 mmol/L (98-107); COR CA(FOR HYPOALB) 9.6 mg/dL (8.5-10.1); COR NA(FOR HYPERGLY) 147 mmol/L (136-145); CREATININE 0.92 mg/dL (0.55-1.02); SODIUM 147 mmol/L (136-145); TOTAL PROTEIN 5.9 g/dL (6.4-8.2); eGFR BLACK RACES > 60 (>60); eGFR NON BLACK RACES > 60 (>60)
[2017-04-27] MEDS: NS 1000 ML 1,000 ML IV SCH ×4 (06:52→21:31)
[2017-04-27] MEDS ORDERED: DILAUDID INJ ONE ×2 (07:56→19:05)
[2017-04-27] MEDS: PROTONIX INJ 40 MG VIAL IVP SCH ×2 (08:42→21:30)
[2017-04-27] MEDS: ROCEPHIN VIAL 1 GM 1 GM in NS 100 ML IV + SPIKE MINIBAG* 100 ML IV SCH (08:42)
[2017-04-27] MEDS: REGLAN TAB 10 MG PO SCH ×4 (08:42→21:30)
[2017-04-27] MEDS: PEPCID 20 MG IV PREMIX* 20 MG/50 ML BAG IV SCH ×2 (08:43→21:30)
[2017-04-27] MEDS: MILK OF MAGNESIA PO SCH ×2 (08:46→21:30)
[2017-04-27] MEDS: TOPROL XL PO SCH ×2 (13:20→21:30)
--- NOTE | 2017-04-27 13:28 | PCM.PROG ---
Progress Note - Progress Note for Day of Date: 04/25/17 - Subjective Subjective: IS BEING TREATED FOR A URINARY TRACT INFECTION, ACUTE RENAL FAILURE, DEHYDRATION, AND HYPERKALEMIA. TODAY, SHE IS ALERT IN BED, COMPLAINING OF SEVERE ABDOMINAL PAIN. SHE IS CRYING OUT AND STATES I CANT BREATHE. ON EXAMINATION, HEART IS REGULAR IN RATE AND RHYTHM. BILATERAL LUNGS CONTINUE WITH RHONCHI THROUGHOUT. SHE IS CURRENTLY UTILIZING OXYGEN VIA NASAN CANNULA AT 2L/MIN. ABDOMEN IS ROUND, SOFT, AND NOTED WITH SEVERE PAIN TO PALPATION OF EPIGASTRIC AREA. THERE IS A OQUENDO CATHETER NOTED TO BEDSIDE DRAINAGE. NORMAL BOWEL SOUNDS NOTED IN ALL QUADRANTS. SHE IS NOTED WITH GENERALIZED EDEMA. HER VITALS THIS MORNING ARE 98.7-102-21-97%-160/91. LABS WERE OBTAINED. ABNORMAL LAB VALUES INCLUDE THE FOLLOWING: RBC 3.15, HGB 10.7, HCT 31.9, CHLORIDE 112, BUN 32, CREATININE 1.11, GLUCOSE 120, CALCIUM 8.3, ALT 9 , TOTAL PROTEIN 5.6, ALBUMIN 2.0. A CHEST XRAY WAS OBTAINED THIS MORNING AND REPORTED NO DEFINITE INFILTRATES. ELEVATED LEFT HEMIDIAPHRAGM, CHRONIC. LARGE HIATAL HERNIA. WE FEEL THAT PATIENTS PAIN IS RELATED TO THE LARGE HIATAL HERNIA AND FINDINGS OF A T5 FX. STAFF REPORTS THAT PATIENT DID HAVE A LARGE BOWEL MOVEMENT YESTERDAY. SHE CONTINUES TO RECEIVE ROCEPHIN 1GM IV DAILY FOR A URINARY TRACT INFECTION. TODAY, WE WILL HOLD PATINET NPO, START PEPCID 20MG IV Q12H, PROTONIX 40MG IV BID, AND DILAUDID 1MG IV Q3HR PRN PAIN. WE WILL INSTRUCT STAFF TO POSITION PATIENT IN A HIGH FOWLERS POSITION TO TAKE SOME OF THE PRESSURE OFF OF THE HERNIA. WE WILL CONSULT REGARDING FX OF T5. OTHERWISE, WE WILL CONTINUE WITH CURRENT PLAN OF CARE TODAY. WE PLAN TO FOLLOW UP WITH AM LABS AND CONTINUE TO MONITOR PATIENT. - Past Medical Family Social History Past Med/Fam/Surg Hx: No changes since H&P Allergies: Allergies morphine Allergy (Verified 10/15/16 19:44) - Review of Systems ROS: No change since H&P - Vital Signs and I&O's Vital Signs: Temperature 97.0 F Pulse Rate [Right Brachial] 92 Pulse Rate 18 Respiratory Rate 23 Blood Pressure [Right Arm] 114/71 Blood Pressure [Left Arm] 127/58 Blood Pressure 96/67 O2 Sat by Pulse Oximetry 100 Intake and Output: Intake & Output 04/25/17 04/26/17 04/27/17 04/28/17 11:59 11:59 11:59 11:59 Intake Total 3045 2040 460 Output Total 1250 375 300 Balance 1795 1665 160 - Physical Exam Oriented: Normal Eyes: Normal Ear: Normal Nose: Normal Throat: Normal Respiratory: Right, Left, Generalized, Rhonchi Cardiovascular: Edema : Normal Auscultation: Bowel Sounds: Normal Palpation: Normal Tenderness: Epigastric, Mild Skin: Normal Musculoskeletal: Normal, Back:Paraspinous Psychiatric: Normal Mood Description: Calm Affect: Normal Speech Pattern: Clear, Inappropriate - Laboratory and Diagnostics Result Diagrams: 04/27/17 05:46 04/27/17 05:46 Labs: 04/22/17 21:30 Urine,Catheterized Urine Culture - Final 04/22/17 17:20 Blood Blood Culture - Preliminary 04/22/17 17:10 Blood Blood Culture - Preliminary Laboratory WBC 9.5 X10^3/uL (3.6-10.0) 04/27/17 05:46 RBC 3.59 X10^6/uL (3.5-5.4) 04/27/17 05:46 Hgb 11.4 g/dL (12.0-16.0) L 04/27/17 05:46 Hct 35.5 % (36.0-47.0) L 04/27/17 05:46 MCV 99.0 fL (80.0-100.0) 04/27/17 05:46 MCH 31.7 pg (27.0-34.0) 04/27/17 05:46 MCHC 32.0 g/dL (33.0-35.0) L 04/27/17 05:46 RDW 14.1 % (11.6-16.5) 04/27/17 05:46 Plt Count 129 X10^3/uL (150.0-450.0) L 04/27/17 05:46 MPV 9.0 fL (7.4-11.0) 04/27/17 05:46 Neut % 73.8 % (42.0-75.0) 04/27/17 05:46 Lymph % 13.2 % (21.0-51.0) L 04/27/17 05:46 [place] % 11.9 % (0.0-13.0) 04/27/17 05:46 Eos % 0.6 % (0.9-2.9) L 04/27/17 05:46 Baso % 0.5 % (0.2-1.0) 04/27/17 05:46 Neut # 7.0 x10^3/uL (2.2-4.8) H 04/27/17 05:46 Lymph # 1.3 X10^3/uL (1.3-2.9) 04/27/17 05:46 [place] # 1.1 x10^3/uL (0.3-0.8) H 04/27/17 05:46 Eos # 0.1 x10^3/uL (0.0-0.2) 04/27/17 05:46 Baso # 0.0 X10^3/uL (0.0-0.1) 04/27/17 05:46 Absolute Nucleated RBC 0.1 /100WBC 04/27/17 05:46 INR Target Range - 04/23/17 05:45 INR 1.14 (0.8-1.3) 04/23/17 05:45 PTT 32.0 SECONDS (22.9-36.5) 04/23/17 05:45 PTT Comment - 04/23/17 05:45 Sodium 147 mmol/L (136-145) H 04/27/17 05:46 Corrected Sodium 147 mmol/L (136-145) H 04/27/17 05:46 Potassium 4.4 mmol/L (3.5-5.1) 04/27/17 05:46 Chloride 114 mmol/L (98-107) H 04/27/17 05:46 Carbon Dioxide 20.9 mmol/L (21-32) L 04/27/17 05:46 BUN 27 mg/dL (7-18) H 04/27/17 05:46 Creatinine 0.92 mg/dL (0.55-1.02) 04/27/17 05:46 Est GFR (MDRD) Af Amer > 60 (>60) 04/27/17 05:46 Est GFR (MDRD) Non-Af > 60 (>60) 04/27/17 05:46 Glucose 112 mg/dL (65-99) H 04/27/17 05:46 POC Glucose (mg/dL) 73 mg/dL (65-99) 04/22/17 22:55 Lactic Acid 0.9 mmol/L (0.4-2.0) 04/22/17 17:10 Calcium 8.1 mg/dL (8.5-10.1) L 04/27/17 05:46 Corrected Calcium 9.6 mg/dL (8.5-10.1) 04/27/17 05:46 Magnesium 3.3 mg/dL (1.7-2.9) H 04/23/17 05:45 Total Bilirubin 0.20 mg/dL (0.2-1.0) 04/27/17 05:46 AST 17 Units/L (15-37) 04/27/17 05:46 ALT 14 Units/L (12-78) 04/27/17 05:46 Alkaline Phosphatase 58 Units/L (46-116) 04/27/17 05:46 Creatine Kinase 123 Units/L (26-192) 04/23/17 05:45 CK-MB (CK-2) 2.8 ng/mL (0-4.0) 04/23/17 05:45 CK/CKMB % Calc 2.3 % (<4) 04/23/17 05:45 Troponin I < 0.02 ng/mL (0-1.5) 04/23/17 05:45 C-Reactive Protein 5.80 mg/L (0-3.0) H 04/22/17 17:10 Total Protein 5.9 g/dL (6.4-8.2) L 04/27/17 05:46 Albumin 2.1 g/dL (3.4-5.0) L 04/27/17 05:46 Globulin 3.8 g/dL (2.5-4.5) 04/27/17 05:46 Albumin/Globulin Ratio 0.6 Ratio (1.1-2.1) L 04/27/17 05:46 Triglycerides 87 mg/dL (0-150) 04/23/17 05:45 Cholesterol 162 mg/dL (0-200) 04/23/17 05:45 LDL Cholesterol, Calc 114 mg/dL (0-100) H 04/23/17 05:45 HDL Cholesterol 31 mg/dL (40-60) L 04/23/17 05:45 Cholesterol/HDL Ratio 5.2 (0.0-5.0) H 04/23/17 05:45 Specimen Type Catherized urine 04/22/17 21:30 Urine Color Yellow (YELLOW) 04/22/17 21:30 Urine Appearance Hazy (CLEAR) 04/22/17 21:30 Urine pH 5.0 (5.0 - 8.0) 04/22/17 21:30 Ur Specific [place] 1.020 (1.000-1.030) 04/22/17 21:30 Urine Protein 2+ (NEGATIVE) 04/22/17 21:30 Urine Glucose (UA) Negative (NEGATIVE) 04/22/17 21:30 Urine Ketones 2+ (NEGATIVE) 04/22/17 21:30 Urine Occult Blood 1+ (NEGATIVE) 04/22/17 21:30 Urine Nitrite Negative (NEGATIVE) 04/22/17 21:30 Urine Bilirubin 3+ (NEGATIVE) 04/22/17 21:30 Urine Urobilinogen Normal (NORMAL) 04/22/17 21:30 Ur Leukocyte Esterase 2+ (NEGATIVE) 04/22/17 21:30 Urine RBC 2-6 /HPF (NEGATIVE) 04/22/17 21:30 Urine WBC 20-30 /HPF (NEGATIVE) 04/22/17 21:30 Ur Squamous Epith Cells Rare /HPF (NEGATIVE) 04/22/17 21:30 Urine Bacteria 1+ /HPF (NEGATIVE) 04/22/17 21:30 Ur Culture Indicated? Yes/culture set up 04/22/17 21:30 - Plan (1) UTI (urinary tract infection) Status: Inactive Qualifiers: Urinary tract infection type: acute cystitis Hematuria presence: without hematuria Qualified Code(s): N30.00 - Acute cystitis without hematuria Plan: rocephin 1gm iv daily, normal saline at 100ml/hr, continue to monitor (2) Abdominal pain Status: Acute Qualifiers: Abdominal location: epigastric Qualified Code(s): R10.13 - Epigastric pain Plan: PEPCID, PROTONIX, DILAUDID, CONTINUE TO MONITOR (3) Acute renal failure Status: Acute Qualifiers: Acute renal failure type: unspecified Qualified Code(s): N17.9 - Acute kidney failure, unspecified Plan: normal saline at 100ml/hr, continue to monitor (4) Hyperkalemia Status: Acute (5) Generalized weakness Status: Acute (6) Altered mental state Status: Acute Qualifiers: Altered mental status type: transient alteration of awareness Qualified Code(s): R40.4 - Transient alteration of awareness Plan: abx for UTI, continue to monitor (7) Constipation Status: Acute Qualifiers: Constipation type: slow transit constipation Qualified Code(s): K59.01 - Slow transit constipation Plan: MILK OF MAGNESIA BID GRETEL, COLACE 200MG PO HS GRETEL, CONTINUE TO MONITOR
--- NOTE | 2017-04-27 13:59 | PCM.PROG ---
Progress Note - Progress Note for Day of Date: 04/26/17 - Subjective Subjective: IS BEING TREATED FOR A URINARY TRACT INFECTION, ACUTE RENAL FAILURE, DEHYDRATION, AND HYPERKALEMIA. TODAY, SHE IS ALERT AND ORIENTED, LYING IN BED ON MORNING ROUNDS. SHE CONTINUES WITH COMPLAINTS OF MODERATE EPIGASTRIC PAIN. ON EXAMINATION, HEART IS REGULAR IN RATE AND RHYTHM. BILATERAL LUNGS CONTINUE WITH RHONCHI THROUGHOUT. SHE IS CURRENTLY UTILIZING OXYGEN VIA NASAN CANNULA AT 2L/MIN. ABDOMEN IS ROUND, SOFT, AND CONTINUES WITH MODERATE PAIN TO PALPATION OF EPIGASTRIC AREA. THERE IS A OQUENDO CATHETER NOTED TO BEDSIDE DRAINAGE. NORMAL BOWEL SOUNDS NOTED IN ALL QUADRANTS. SHE CONTINUES WITH GENERALIZED EDEMA TO EXTREMITIES. HER VITALS THIS MORNING ARE 97.6-80-14- 100%-104/61. LABS WERE OBTAINED. ABNORMAL LAB VALUES INCLUDE THE FOLLOWING: WBC INCREASED FROM 7.9 TO 10.8, RBC 3.49, HGB 11.1, HCT 34.2, SODIUM 147, CHLORIDE 114, BUN 27, GLUCOSE 112, CALCIUM 8.1, TOTAL PROTEIN 5.9, ALBUMIN 2.1. SHE CONTINUES TO RECEIVE ROCEPHIN 1GM IV DAILY FOR A URINARY TRACT INFECTION. TODAY , WE WILL OBTAIN AN ABD/PELVIS CT WITH CONTRAST. WE WILL ALSO START TPN AND ALBUMIN. OTHERWISE, WE WILL CONTINUE WITH CURRENT PLAN OF CARE TODAY. WE PLAN TO FOLLOW UP WITH AM LABS AND CONTINUE TO MONITOR PATIENT. - Past Medical Family Social History Past Med/Fam/Surg Hx: No changes since H&P Allergies: Allergies morphine Allergy (Verified 10/15/16 19:44) - Review of Systems ROS: No change since H&P - Vital Signs and I&O's Vital Signs: Temperature 97.0 F Pulse Rate [Right Brachial] 92 Pulse Rate 18 Respiratory Rate 23 Blood Pressure [Right Arm] 114/71 Blood Pressure [Left Arm] 127/58 Blood Pressure 96/67 O2 Sat by Pulse Oximetry 100 Intake and Output: Intake & Output 04/25/17 04/26/17 04/27/17 04/28/17 11:59 11:59 11:59 11:59 Intake Total 3045 2040 460 Output Total 1250 375 300 Balance 1795 1665 160 - Physical Exam Oriented: Normal Eyes: Normal Ear: Normal Nose: Normal Throat: Normal Respiratory: Right, Left, Generalized, Rhonchi Cardiovascular: Edema : Normal Auscultation: Bowel Sounds: Normal Palpation: Normal Tenderness: Epigastric, Moderate Skin: Normal Musculoskeletal: Normal, Back:Paraspinous Psychiatric: Normal Mood Description: Calm Affect: Normal Speech Pattern: Clear, Inappropriate - Laboratory and Diagnostics Result Diagrams: 04/27/17 05:46 04/27/17 05:46 Labs: 04/22/17 21:30 Urine,Catheterized Urine Culture - Final 04/22/17 17:20 Blood Blood Culture - Preliminary 04/22/17 17:10 Blood Blood Culture - Preliminary Laboratory WBC 9.5 X10^3/uL (3.6-10.0) 04/27/17 05:46 RBC 3.59 X10^6/uL (3.5-5.4) 04/27/17 05:46 Hgb 11.4 g/dL (12.0-16.0) L 04/27/17 05:46 Hct 35.5 % (36.0-47.0) L 04/27/17 05:46 MCV 99.0 fL (80.0-100.0) 04/27/17 05:46 MCH 31.7 pg (27.0-34.0) 04/27/17 05:46 MCHC 32.0 g/dL (33.0-35.0) L 04/27/17 05:46 RDW 14.1 % (11.6-16.5) 04/27/17 05:46 Plt Count 129 X10^3/uL (150.0-450.0) L 04/27/17 05:46 MPV 9.0 fL (7.4-11.0) 04/27/17 05:46 Neut % 73.8 % (42.0-75.0) 04/27/17 05:46 Lymph % 13.2 % (21.0-51.0) L 04/27/17 05:46 [place] % 11.9 % (0.0-13.0) 04/27/17 05:46 Eos % 0.6 % (0.9-2.9) L 04/27/17 05:46 Baso % 0.5 % (0.2-1.0) 04/27/17 05:46 Neut # 7.0 x10^3/uL (2.2-4.8) H 04/27/17 05:46 Lymph # 1.3 X10^3/uL (1.3-2.9) 04/27/17 05:46 [place] # 1.1 x10^3/uL (0.3-0.8) H 04/27/17 05:46 Eos # 0.1 x10^3/uL (0.0-0.2) 04/27/17 05:46 Baso # 0.0 X10^3/uL (0.0-0.1) 04/27/17 05:46 Absolute Nucleated RBC 0.1 /100WBC 04/27/17 05:46 INR Target Range - 04/23/17 05:45 INR 1.14 (0.8-1.3) 04/23/17 05:45 PTT 32.0 SECONDS (22.9-36.5) 04/23/17 05:45 PTT Comment - 04/23/17 05:45 Sodium 147 mmol/L (136-145) H 04/27/17 05:46 Corrected Sodium 147 mmol/L (136-145) H 04/27/17 05:46 Potassium 4.4 mmol/L (3.5-5.1) 04/27/17 05:46 Chloride 114 mmol/L (98-107) H 04/27/17 05:46 Carbon Dioxide 20.9 mmol/L (21-32) L 04/27/17 05:46 BUN 27 mg/dL (7-18) H 04/27/17 05:46 Creatinine 0.92 mg/dL (0.55-1.02) 04/27/17 05:46 Est GFR (MDRD) Af Amer > 60 (>60) 04/27/17 05:46 Est GFR (MDRD) Non-Af > 60 (>60) 04/27/17 05:46 Glucose 112 mg/dL (65-99) H 04/27/17 05:46 POC Glucose (mg/dL) 73 mg/dL (65-99) 04/22/17 22:55 Lactic Acid 0.9 mmol/L (0.4-2.0) 04/22/17 17:10 Calcium 8.1 mg/dL (8.5-10.1) L 04/27/17 05:46 Corrected Calcium 9.6 mg/dL (8.5-10.1) 04/27/17 05:46 Magnesium 3.3 mg/dL (1.7-2.9) H 04/23/17 05:45 Total Bilirubin 0.20 mg/dL (0.2-1.0) 04/27/17 05:46 AST 17 Units/L (15-37) 04/27/17 05:46 ALT 14 Units/L (12-78) 04/27/17 05:46 Alkaline Phosphatase 58 Units/L (46-116) 04/27/17 05:46 Creatine Kinase 123 Units/L (26-192) 04/23/17 05:45 CK-MB (CK-2) 2.8 ng/mL (0-4.0) 04/23/17 05:45 CK/CKMB % Calc 2.3 % (<4) 04/23/17 05:45 Troponin I < 0.02 ng/mL (0-1.5) 04/23/17 05:45 C-Reactive Protein 5.80 mg/L (0-3.0) H 04/22/17 17:10 Total Protein 5.9 g/dL (6.4-8.2) L 04/27/17 05:46 Albumin 2.1 g/dL (3.4-5.0) L 04/27/17 05:46 Globulin 3.8 g/dL (2.5-4.5) 04/27/17 05:46 Albumin/Globulin Ratio 0.6 Ratio (1.1-2.1) L 04/27/17 05:46 Triglycerides 87 mg/dL (0-150) 04/23/17 05:45 Cholesterol 162 mg/dL (0-200) 04/23/17 05:45 LDL Cholesterol, Calc 114 mg/dL (0-100) H 04/23/17 05:45 HDL Cholesterol 31 mg/dL (40-60) L 04/23/17 05:45 Cholesterol/HDL Ratio 5.2 (0.0-5.0) H 04/23/17 05:45 Specimen Type Catherized urine 04/22/17 21:30 Urine Color Yellow (YELLOW) 04/22/17 21:30 Urine Appearance Hazy (CLEAR) 04/22/17 21:30 Urine pH 5.0 (5.0 - 8.0) 04/22/17 21:30 Ur Specific [place] 1.020 (1.000-1.030) 04/22/17 21:30 Urine Protein 2+ (NEGATIVE) 04/22/17 21:30 Urine Glucose (UA) Negative (NEGATIVE) 04/22/17 21:30 Urine Ketones 2+ (NEGATIVE) 04/22/17 21:30 Urine Occult Blood 1+ (NEGATIVE) 04/22/17 21:30 Urine Nitrite Negative (NEGATIVE) 04/22/17 21:30 Urine Bilirubin 3+ (NEGATIVE) 04/22/17 21:30 Urine Urobilinogen Normal (NORMAL) 04/22/17 21:30 Ur Leukocyte Esterase 2+ (NEGATIVE) 04/22/17 21:30 Urine RBC 2-6 /HPF (NEGATIVE) 04/22/17 21:30 Urine WBC 20-30 /HPF (NEGATIVE) 04/22/17 21:30 Ur Squamous Epith Cells Rare /HPF (NEGATIVE) 04/22/17 21:30 Urine Bacteria 1+ /HPF (NEGATIVE) 04/22/17 21:30 Ur Culture Indicated? Yes/culture set up 04/22/17 21:30 - Plan (1) UTI (urinary tract infection) Status: Inactive Qualifiers: Urinary tract infection type: acute cystitis Hematuria presence: without hematuria Qualified Code(s): N30.00 - Acute cystitis without hematuria Plan: rocephin 1gm iv daily, normal saline at 100ml/hr, continue to monitor (2) Abdominal pain Status: Acute Qualifiers: Abdominal location: epigastric Qualified Code(s): R10.13 - Epigastric pain Plan: ABD/PELVIS CT WITH CONTRAST, PEPCID, PROTONIX, DILAUDID, CONTINUE TO MONITOR (3) Acute renal failure Status: Acute Qualifiers: Acute renal failure type: unspecified Qualified Code(s): N17.9 - Acute kidney failure, unspecified Plan: normal saline at 100ml/hr, continue to monitor (4) Hyperkalemia Status: Acute (5) Generalized weakness Status: Acute Plan: TPN, ALBUMIN, CONTINUE TO MONITOR (6) Altered mental state Status: Acute Qualifiers: Altered mental status type: transient alteration of awareness Qualified Code(s): R40.4 - Transient alteration of awareness Plan: abx for UTI, continue to monitor (7) Constipation Status: Acute Qualifiers: Constipation type: slow transit constipation Qualified Code(s): K59.01 - Slow transit constipation Plan: MILK OF MAGNESIA BID GRETEL, COLACE 200MG PO HS GRETEL, CONTINUE TO MONITOR
[2017-04-27] MEDS: SNACK - Diabetic Appropriate PO SCH (20:53)
[2017-04-27] MEDS: COLACE CAP 100 MG PO SCH (21:30)
[2017-04-28] MEDS: DILAUDID INJ IVP PRN ×5 (01:01→23:59)
[2017-04-28] MEDS: NS 1000 ML 1,000 ML IV SCH ×3 (05:12→23:29)
[2017-04-28 07:05] LABS: ALANINE AMINOTRANSFERASE 9 Units/L (12-78); ALBUMIN 2.1 g/dL (3.4-5.0); ALKALINE PHOSPHATASE 58 Units/L (46-116); ASPARTATE AMINO TRANSFERASE 13 Units/L (15-37); BLOOD UREA NITROGEN 24 mg/dL (7-18); CALCIUM 8.6 mg/dL (8.5-10.1); CARBON DIOXIDE 20.1 mmol/L (21-32); COR CA(FOR HYPOALB) 10.1 mg/dL (8.5-10.1); CREATININE 0.76 mg/dL (0.55-1.02); SODIUM 147 mmol/L (136-145); TOTAL PROTEIN 5.7 g/dL (6.4-8.2); eGFR BLACK RACES > 60 (>60); eGFR NON BLACK RACES > 60 (>60)
[2017-04-28 07:13] LABS: BASOPHILS % (AUTO) 0.6 % (0.2-1.0); CHLORIDE 115 mmol/L (98-107); EOSINOPHILS # (AUTO) 0.2 x10^3/uL (0.0-0.2); EOSINOPHILS % (AUTO) 2.4 % (0.9-2.9); HEMATOCRIT 32.4 % (36.0-47.0); HEMOGLOBIN 10.5 g/dL (12.0-16.0); LYMPHOCYTES # (AUTO) 1.3 X10^3/uL (1.3-2.9); LYMPHOCYTES % (AUTO) 16.4 % (21.0-51.0); MEAN CORPUSCULAR HEMOGLOBIN 31.9 pg (27.0-34.0); MEAN CORPUSCULAR HGB CONC 32.6 g/dL (33.0-35.0); MEAN CORPUSCULAR VOLUME 97.8 fL (80.0-100.0); MEAN PLATELET VOLUME 8.5 fL (7.4-11.0); MONOCYTES % (AUTO) 13.3 % (0.0-13.0); NEUTROPHILS # (AUTO) 5.2 x10^3/uL (2.2-4.8); NEUTROPHILS % (AUTO) 67.3 % (42.0-75.0); PLATELET COUNT 126 X10^3/uL (150.0-450.0); RED BLOOD COUNT 3.31 X10^6/uL (3.5-5.4); RED CELL DISTRIBUTION WIDTH 14.4 % (11.6-16.5); WHITE BLOOD COUNT 7.7 X10^3/uL (3.6-10.0)
[2017-04-28] MEDS ORDERED: DILAUDID INJ ONE ×2 (10:20→20:38)
--- NOTE | 2017-04-28 11:24 | RAD ---
Examination: AP chest History: Central line Comparison reference 04/25/2017 A new left subclavian catheter is present, extending to the right atrium. No pneumothorax is seen. Ag ain is noted elevation left diaphragm with no change in appearance of heart or lungs since 3 days ear lier. Impression: Apparently uncomplicated central line insertion. Reported By:
[2017-04-28] MEDS: REGLAN TAB 10 MG PO SCH ×6 (11:44→20:23)
[2017-04-28] MEDS: PEPCID 20 MG IV PREMIX* 20 MG/50 ML BAG IV SCH ×2 (11:48→20:23)
[2017-04-28] MEDS: PROTONIX INJ 40 MG VIAL IVP SCH ×2 (11:48→20:23)
[2017-04-28] MEDS: ROCEPHIN VIAL 1 GM 1 GM in NS 100 ML IV + SPIKE MINIBAG* 100 ML IV SCH (11:48)
[2017-04-28] MEDS: MILK OF MAGNESIA PO SCH ×3 (11:52→20:24)
[2017-04-28] MEDS: TOPROL XL PO SCH ×2 (11:54→20:23)
--- NOTE | 2017-04-28 17:57 | PCM.PROG ---
Progress Note - Progress Note for Day of Date: 04/28/17 - Subjective Subjective: Pt was seen with abdominal pain ,severe anorexia , nausea and vomiting few days ago . CT showed large Hiatal hernia with displacement most of the stomach and parts of the colon in the chest . pt has other medical issues as documented in the chart . today her abdominal pain is mild , no vomiting ,but did not eat anything . urine output is poor . - Past Medical Family Social History Past Med/Fam/Surg Hx: No changes since H&P Allergies: Allergies morphine Allergy (Verified 10/15/16 19:44) - Review of Systems ROS: No change since H&P - Vital Signs and I&O's Vital Signs: Temperature 98.1 F Pulse Rate [Right Brachial] 89 Pulse Rate 18 Respiratory Rate 14 Blood Pressure [Right Arm] 105/57 Blood Pressure [Left Arm] 127/58 Blood Pressure 96/67 O2 Sat by Pulse Oximetry 100 Intake and Output: Intake & Output 04/26/17 04/27/17 04/28/17 04/29/17 11:59 11:59 11:59 11:59 Intake Total 2040 460 2170 930 Output Total 375 300 390 225 Balance 7261 794 9877 705 - Physical Exam Oriented: Not Oriented Eyes: Normal Ear: Normal Nose: Normal Throat: Normal Respiratory: Right, Left, Generalized, Rhonchi Cardiovascular: Edema : Normal Auscultation: Bowel Sounds: Normal Palpation: Other (soft abdomen , , no masses felt possible incisional hernias , no obstruction ) Tenderness: Epigastric, Moderate Skin: Normal Musculoskeletal: Normal, Back:Paraspinous Psychiatric: Normal Mood Description: Calm Affect: Normal Speech Pattern: Clear, Appropriate - Laboratory and Diagnostics Result Diagrams: 04/28/17 06:45 04/28/17 06:45 Labs: 04/22/17 17:20 Blood Blood Culture - Final 04/22/17 17:10 Blood Blood Culture - Final 04/22/17 21:30 Urine,Catheterized Urine Culture - Final Laboratory WBC 7.7 X10^3/uL (3.6-10.0) 04/28/17 06:45 RBC 3.31 X10^6/uL (3.5-5.4) L 04/28/17 06:45 Hgb 10.5 g/dL (12.0-16.0) L 04/28/17 06:45 Hct 32.4 % (36.0-47.0) L 04/28/17 06:45 MCV 97.8 fL (80.0-100.0) 04/28/17 06:45 MCH 31.9 pg (27.0-34.0) 04/28/17 06:45 MCHC 32.6 g/dL (33.0-35.0) L 04/28/17 06:45 RDW 14.4 % (11.6-16.5) 04/28/17 06:45 Plt Count 126 X10^3/uL (150.0-450.0) L 04/28/17 06:45 MPV 8.5 fL (7.4-11.0) 04/28/17 06:45 Neut % 67.3 % (42.0-75.0) 04/28/17 06:45 Lymph % 16.4 % (21.0-51.0) L 04/28/17 06:45 [place] % 13.3 % (0.0-13.0) H 04/28/17 06:45 Eos % 2.4 % (0.9-2.9) 04/28/17 06:45 Baso % 0.6 % (0.2-1.0) 04/28/17 06:45 Neut # 5.2 x10^3/uL (2.2-4.8) H 04/28/17 06:45 Lymph # 1.3 X10^3/uL (1.3-2.9) 04/28/17 06:45 [place] # 1.0 x10^3/uL (0.3-0.8) H 04/28/17 06:45 Eos # 0.2 x10^3/uL (0.0-0.2) 04/28/17 06:45 Baso # 0.0 X10^3/uL (0.0-0.1) 04/28/17 06:45 Absolute Nucleated RBC 0.1 /100WBC 04/28/17 06:45 INR Target Range - 04/23/17 05:45 INR 1.14 (0.8-1.3) 04/23/17 05:45 PTT 32.0 SECONDS (22.9-36.5) 04/23/17 05:45 PTT Comment - 04/23/17 05:45 Sodium 147 mmol/L (136-145) H 04/28/17 06:45 Corrected Sodium TNP 04/28/17 06:45 Potassium 4.1 mmol/L (3.5-5.1) 04/28/17 06:45 Chloride 115 mmol/L (98-107) H* 04/28/17 06:45 Carbon Dioxide 20.1 mmol/L (21-32) L 04/28/17 06:45 BUN 24 mg/dL (7-18) H 04/28/17 06:45 Creatinine 0.76 mg/dL (0.55-1.02) 04/28/17 06:45 Est GFR (MDRD) Af Amer > 60 (>60) 04/28/17 06:45 Est GFR (MDRD) Non-Af > 60 (>60) 04/28/17 06:45 Glucose 108 mg/dL (65-99) H 04/28/17 06:45 POC Glucose (mg/dL) 73 mg/dL (65-99) 04/22/17 22:55 Lactic Acid 0.9 mmol/L (0.4-2.0) 04/22/17 17:10 Calcium 8.6 mg/dL (8.5-10.1) 04/28/17 06:45 Corrected Calcium 10.1 mg/dL (8.5-10.1) 04/28/17 06:45 Magnesium 3.3 mg/dL (1.7-2.9) H 04/23/17 05:45 Total Bilirubin 0.20 mg/dL (0.2-1.0) 04/28/17 06:45 AST 13 Units/L (15-37) L 04/28/17 06:45 ALT 9 Units/L (12-78) L 04/28/17 06:45 Alkaline Phosphatase 58 Units/L (46-116) 04/28/17 06:45 Creatine Kinase 123 Units/L (26-192) 04/23/17 05:45 CK-MB (CK-2) 2.8 ng/mL (0-4.0) 04/23/17 05:45 CK/CKMB % Calc 2.3 % (<4) 04/23/17 05:45 Troponin I < 0.02 ng/mL (0-1.5) 04/23/17 05:45 C-Reactive Protein 5.80 mg/L (0-3.0) H 04/22/17 17:10 Total Protein 5.7 g/dL (6.4-8.2) L 04/28/17 06:45 Albumin 2.1 g/dL (3.4-5.0) L 04/28/17 06:45 Globulin 3.6 g/dL (2.5-4.5) 04/28/17 06:45 Albumin/Globulin Ratio 0.6 Ratio (1.1-2.1) L 04/28/17 06:45 Triglycerides 87 mg/dL (0-150) 04/23/17 05:45 Cholesterol 162 mg/dL (0-200) 04/23/17 05:45 LDL Cholesterol, Calc 114 mg/dL (0-100) H 04/23/17 05:45 HDL Cholesterol 31 mg/dL (40-60) L 04/23/17 05:45 Cholesterol/HDL Ratio 5.2 (0.0-5.0) H 04/23/17 05:45 Specimen Type Catherized urine 04/22/17 21:30 Urine Color Yellow (YELLOW) 04/22/17 21:30 Urine Appearance Hazy (CLEAR) 04/22/17 21:30 Urine pH 5.0 (5.0 - 8.0) 04/22/17 21:30 Ur Specific [place] 1.020 (1.000-1.030) 04/22/17 21:30 Urine Protein 2+ (NEGATIVE) 04/22/17 21:30 Urine Glucose (UA) Negative (NEGATIVE) 04/22/17 21:30 Urine Ketones 2+ (NEGATIVE) 04/22/17 21:30 Urine Occult Blood 1+ (NEGATIVE) 04/22/17 21:30 Urine Nitrite Negative (NEGATIVE) 04/22/17 21:30 Urine Bilirubin 3+ (NEGATIVE) 04/22/17 21:30 Urine Urobilinogen Normal (NORMAL) 04/22/17 21:30 Ur Leukocyte Esterase 2+ (NEGATIVE) 04/22/17 21:30 Urine RBC 2-6 /HPF (NEGATIVE) 04/22/17 21:30 Urine WBC 20-30 /HPF (NEGATIVE) 04/22/17 21:30 Ur Squamous Epith Cells Rare /HPF (NEGATIVE) 04/22/17 21:30 Urine Bacteria 1+ /HPF (NEGATIVE) 04/22/17 21:30 Ur Culture Indicated? Yes/culture set up 04/22/17 21:30 - Plan (1) Abdominal pain Status: Acute Qualifiers: Abdominal location: epigastric Qualified Code(s): R10.13 - Epigastric pain Plan: ABD/PELVIS CT WITH CONTRAST, PEPCID, PROTONIX, DILAUDID, CONTINUE TO MONITOR (2) Hiatal hernia with obstruction but no gangrene Status: Acute (3) Gastric ulcer Status: Acute Plan: same plan for now. when Pt's more stable EGD could be helpful to R/O ulcers and check the degree of obstruction from the hiatal hernia.. needs nutritional support as well .
[2017-04-28] MEDS: SNACK - Diabetic Appropriate PO SCH (20:04)
[2017-04-28] MEDS: COLACE CAP 100 MG PO SCH (20:23)
[2017-04-29] MEDS ORDERED: DILAUDID INJ ONE ×2 (03:04→09:35)
[2017-04-29] MEDS: DILAUDID INJ IVP PRN ×7 (03:06→20:17)
[2017-04-29] MEDS: NS 1000 ML 1,000 ML IV SCH ×4 (05:31→22:07)
[2017-04-29 05:47] LABS: BASOPHILS % (AUTO) 0.3 % (0.2-1.0); EOSINOPHILS # (AUTO) 0.1 x10^3/uL (0.0-0.2); HEMATOCRIT 30.5 % (36.0-47.0); HEMOGLOBIN 10.1 g/dL (12.0-16.0); LYMPHOCYTES # (AUTO) 1.2 X10^3/uL (1.3-2.9); MEAN CORPUSCULAR HEMOGLOBIN 32.3 pg (27.0-34.0); MEAN PLATELET VOLUME 8.6 fL (7.4-11.0); MONOCYTES # (AUTO) 1.1 x10^3/uL (0.3-0.8); MONOCYTES % (AUTO) 12.8 % (0.0-13.0); NEUTROPHILS % (AUTO) 71.9 % (42.0-75.0); PLATELET COUNT 121 X10^3/uL (150.0-450.0); RED BLOOD COUNT 3.11 X10^6/uL (3.5-5.4); RED CELL DISTRIBUTION WIDTH 14.2 % (11.6-16.5); WHITE BLOOD COUNT 8.4 X10^3/uL (3.6-10.0)
[2017-04-29] MEDS: NYSTATIN POWDER TOP SCH ×3 (06:07→22:06)
[2017-04-29 06:09] LABS: ALANINE AMINOTRANSFERASE 12 Units/L (12-78); ALKALINE PHOSPHATASE 56 Units/L (46-116); ASPARTATE AMINO TRANSFERASE 14 Units/L (15-37); BLOOD UREA NITROGEN 23 mg/dL (7-18); CALCIUM 8.2 mg/dL (8.5-10.1); CARBON DIOXIDE 22.8 mmol/L (21-32); COR CA(FOR HYPOALB) 9.8 mg/dL (8.5-10.1); CREATININE 0.81 mg/dL (0.55-1.02); SODIUM 148 mmol/L (136-145); TOTAL PROTEIN 5.5 g/dL (6.4-8.2); eGFR BLACK RACES > 60 (>60); eGFR NON BLACK RACES > 60 (>60)
[2017-04-29 06:16] LABS: CHLORIDE 118 mmol/L (98-107)
[2017-04-29] MEDS: MILK OF MAGNESIA PO SCH ×2 (10:03→21:10)
[2017-04-29] MEDS: TOPROL XL PO SCH ×2 (10:05→22:08)
[2017-04-29] MEDS: ROCEPHIN VIAL 1 GM 1 GM in NS 100 ML IV + SPIKE MINIBAG* 100 ML IV SCH (10:05)
[2017-04-29] MEDS: PROTONIX INJ 40 MG VIAL IVP SCH ×2 (10:05→22:26)
[2017-04-29] MEDS: PEPCID 20 MG IV PREMIX* 20 MG/50 ML BAG IV SCH ×2 (10:05→22:25)
[2017-04-29] MEDS: REGLAN TAB 10 MG PO SCH ×3 (10:06→22:07)
--- NOTE | 2017-04-29 10:34 | PCM.PROG ---
Progress Note - Progress Note for Day of Date: 04/27/17 - Subjective Subjective: IS BEING TREATED FOR A URINARY TRACT INFECTION, ACUTE RENAL FAILURE, DEHYDRATION, AND HYPERKALEMIA. TODAY, SHE IS LYING IN BED WITH EYES CLOSE ON MORNING ROUNDS. SHE IS DIFFICULT TO AROUSE, BUT DOES REPSPOND TO PAINFUL STIMULI. SHE CONTINUES WITH COMPLAINTS OF EPIGASTRIC PAIN. ON EXAMINATION, HEART IS REGULAR IN RATE AND RHYTHM. BILATERAL LUNGS CONTINUE WITH RHONCHI THROUGHOUT. SHE IS CURRENTLY UTILIZING OXYGEN VIA NASAN CANNULA AT 2L/ MIN. ABDOMEN IS ROUND, SOFT, AND CONTINUES WITH MODERATE PAIN TO PALPATION OF EPIGASTRIC AREA. THERE IS A OQUENDO CATHETER NOTED TO BEDSIDE DRAINAGE. NORMAL BOWEL SOUNDS NOTED IN ALL QUADRANTS. SHE CONTINUES WITH GENERALIZED EDEMA TO EXTREMITIES. HER VITALS THIS MORNING ARE 97.0-101-31-98%-119/68. LABS WERE OBTAINED. ABNORMAL LAB VALUES INCLUDE THE FOLLOWING: HGB 11.4, HCT 35.5, PLT COUNT 129, SODIUM 147, CHLORIDE 114, BUN 27, GLUCOSE 112, CALCIUM 8.1, TOTAL PROTEIN 5.9, ALBUMIN 2.1. A KUB WAS OBRTAINED THIS MORNING AND REPORTED: UNREMARKABLE KUB. WE ORDERED FOR AN ABD/PELVIS WITH CONTRAST TO BE OBTAINED YESTERDAY, HOWEVER, PATIENT HAS POOR PERIPHERAL ACCESS AND FAMILY DOES NOT WITH FOR A PORT A CATH AT THIS TIME. SHE IS ALSO UNABLE TO TOLERATED THE ORAL CONTRAST WITHOUT VOMITING. SHE CONTINUES TO RECEIVE ROCEPHIN 1GM IV DAILY FOR A URINARY TRACT INFECTION. WE WILL CONSULT FOR PLACEMENT OF A CENTRAL LINE AND TO CONSULT FOR POSSIBLE SURGICAL INTERVENTION. OTHERWISE, WE WILL CONTINUE WITH CURRENT PLAN OF CARE TODAY. WE PLAN TO FOLLOW UP WITH AM LABS AND CONTINUE TO MONITOR PATIENT. - Past Medical Family Social History Past Med/Fam/Surg Hx: No changes since H&P Allergies: Allergies morphine Allergy (Verified 10/15/16 19:44) - Review of Systems ROS: No change since H&P - Vital Signs and I&O's Vital Signs: Temperature 98.2 F Pulse Rate [Apical] 85 Pulse Rate [Right Brachial] 95 Pulse Rate 18 Respiratory Rate 20 Blood Pressure [Right Arm] 105/59 Blood Pressure [Left Arm] 127/58 Blood Pressure 96/67 O2 Sat by Pulse Oximetry 100 Intake and Output: Intake & Output 04/26/17 04/27/17 04/28/17 04/29/17 11:59 11:59 11:59 11:59 Intake Total 8422 633 2170 1954 Output Total 375 300 390 375 Balance 7774 391 5690 1579 - Physical Exam Oriented: Not Oriented Eyes: Normal Ear: Normal Nose: Normal Throat: Normal Respiratory: Right, Left, Generalized, Rhonchi Cardiovascular: Edema : Normal Auscultation: Bowel Sounds: Normal Palpation: Normal Tenderness: Epigastric, Moderate Skin: Normal Musculoskeletal: Normal, Back:Paraspinous Psychiatric: Normal Mood Description: Calm Affect: Normal Speech Pattern: Unclear - Laboratory and Diagnostics Result Diagrams: 04/29/17 05:15 04/29/17 05:15 Labs: 04/22/17 17:20 Blood Blood Culture - Final 04/22/17 17:10 Blood Blood Culture - Final 04/22/17 21:30 Urine,Catheterized Urine Culture - Final Laboratory WBC 8.4 X10^3/uL (3.6-10.0) 04/29/17 05:15 RBC 3.11 X10^6/uL (3.5-5.4) L 04/29/17 05:15 Hgb 10.1 g/dL (12.0-16.0) L 04/29/17 05:15 Hct 30.5 % (36.0-47.0) L 04/29/17 05:15 MCV 98.0 fL (80.0-100.0) 04/29/17 05:15 MCH 32.3 pg (27.0-34.0) 04/29/17 05:15 MCHC 33.0 g/dL (33.0-35.0) 04/29/17 05:15 RDW 14.2 % (11.6-16.5) 04/29/17 05:15 Plt Count 121 X10^3/uL (150.0-450.0) L 04/29/17 05:15 MPV 8.6 fL (7.4-11.0) 04/29/17 05:15 Neut % 71.9 % (42.0-75.0) 04/29/17 05:15 Lymph % 14.0 % (21.0-51.0) L 04/29/17 05:15 [place] % 12.8 % (0.0-13.0) 04/29/17 05:15 Eos % 1.0 % (0.9-2.9) 04/29/17 05:15 Baso % 0.3 % (0.2-1.0) 04/29/17 05:15 Neut # 6.0 x10^3/uL (2.2-4.8) H 04/29/17 05:15 Lymph # 1.2 X10^3/uL (1.3-2.9) L 04/29/17 05:15 [place] # 1.1 x10^3/uL (0.3-0.8) H 04/29/17 05:15 Eos # 0.1 x10^3/uL (0.0-0.2) 04/29/17 05:15 Baso # 0.0 X10^3/uL (0.0-0.1) 04/29/17 05:15 Absolute Nucleated RBC 0.2 /100WBC 04/29/17 05:15 INR Target Range - 04/23/17 05:45 INR 1.14 (0.8-1.3) 04/23/17 05:45 PTT 32.0 SECONDS (22.9-36.5) 04/23/17 05:45 PTT Comment - 04/23/17 05:45 Sodium 148 mmol/L (136-145) H 04/29/17 05:15 Corrected Sodium TNP 04/29/17 05:15 Potassium 4.3 mmol/L (3.5-5.1) 04/29/17 05:15 Chloride 118 mmol/L (98-107) H* 04/29/17 05:15 Carbon Dioxide 22.8 mmol/L (21-32) 04/29/17 05:15 BUN 23 mg/dL (7-18) H 04/29/17 05:15 Creatinine 0.81 mg/dL (0.55-1.02) 04/29/17 05:15 Est GFR (MDRD) Af Amer > 60 (>60) 04/29/17 05:15 Est GFR (MDRD) Non-Af > 60 (>60) 04/29/17 05:15 Glucose 109 mg/dL (65-99) H 04/29/17 05:15 POC Glucose (mg/dL) 73 mg/dL (65-99) 04/22/17 22:55 Lactic Acid 0.9 mmol/L (0.4-2.0) 04/22/17 17:10 Calcium 8.2 mg/dL (8.5-10.1) L 04/29/17 05:15 Corrected Calcium 9.8 mg/dL (8.5-10.1) 04/29/17 05:15 Magnesium 3.3 mg/dL (1.7-2.9) H 04/23/17 05:45 Total Bilirubin 0.30 mg/dL (0.2-1.0) 04/29/17 05:15 AST 14 Units/L (15-37) L 04/29/17 05:15 ALT 12 Units/L (12-78) 04/29/17 05:15 Alkaline Phosphatase 56 Units/L (46-116) 04/29/17 05:15 Creatine Kinase 123 Units/L (26-192) 04/23/17 05:45 CK-MB (CK-2) 2.8 ng/mL (0-4.0) 04/23/17 05:45 CK/CKMB % Calc 2.3 % (<4) 04/23/17 05:45 Troponin I < 0.02 ng/mL (0-1.5) 04/23/17 05:45 C-Reactive Protein 5.80 mg/L (0-3.0) H 04/22/17 17:10 Total Protein 5.5 g/dL (6.4-8.2) L 04/29/17 05:15 Albumin 2.0 g/dL (3.4-5.0) L 04/29/17 05:15 Globulin 3.5 g/dL (2.5-4.5) 04/29/17 05:15 Albumin/Globulin Ratio 0.6 Ratio (1.1-2.1) L 04/29/17 05:15 Triglycerides 87 mg/dL (0-150) 04/23/17 05:45 Cholesterol 162 mg/dL (0-200) 04/23/17 05:45 LDL Cholesterol, Calc 114 mg/dL (0-100) H 04/23/17 05:45 HDL Cholesterol 31 mg/dL (40-60) L 04/23/17 05:45 Cholesterol/HDL Ratio 5.2 (0.0-5.0) H 04/23/17 05:45 Specimen Type Catherized urine 04/22/17 21:30 Urine Color Yellow (YELLOW) 04/22/17 21:30 Urine Appearance Hazy (CLEAR) 04/22/17 21:30 Urine pH 5.0 (5.0 - 8.0) 04/22/17 21:30 Ur Specific [place] 1.020 (1.000-1.030) 04/22/17 21:30 Urine Protein 2+ (NEGATIVE) 04/22/17 21:30 Urine Glucose (UA) Negative (NEGATIVE) 04/22/17 21:30 Urine Ketones 2+ (NEGATIVE) 04/22/17 21:30 Urine Occult Blood 1+ (NEGATIVE) 04/22/17 21:30 Urine Nitrite Negative (NEGATIVE) 04/22/17 21:30 Urine Bilirubin 3+ (NEGATIVE) 04/22/17 21:30 Urine Urobilinogen Normal (NORMAL) 04/22/17 21:30 Ur Leukocyte Esterase 2+ (NEGATIVE) 04/22/17 21:30 Urine RBC 2-6 /HPF (NEGATIVE) 04/22/17 21:30 Urine WBC 20-30 /HPF (NEGATIVE) 04/22/17 21:30 Ur Squamous Epith Cells Rare /HPF (NEGATIVE) 04/22/17 21:30 Urine Bacteria 1+ /HPF (NEGATIVE) 04/22/17 21:30 Ur Culture Indicated? Yes/culture set up 04/22/17 21:30 - Plan (1) UTI (urinary tract infection) Status: Inactive Qualifiers: Urinary tract infection type: acute cystitis Hematuria presence: without hematuria Qualified Code(s): N30.00 - Acute cystitis without hematuria Plan: rocephin 1gm iv daily, normal saline at 100ml/hr, continue to monitor (2) Abdominal pain Status: Acute Qualifiers: Abdominal location: epigastric Qualified Code(s): R10.13 - Epigastric pain Plan: PEPCID, PROTONIX, DILAUDID, CONTINUE TO MONITOR (3) Acute renal failure Status: Acute Qualifiers: Acute renal failure type: unspecified Qualified Code(s): N17.9 - Acute kidney failure, unspecified Plan: normal saline at 100ml/hr, continue to monitor (4) Hyperkalemia Status: Acute (5) Generalized weakness Status: Acute Plan: TPN, ALBUMIN, CONTINUE TO MONITOR (6) Altered mental state Status: Acute Qualifiers: Altered mental status type: transient alteration of awareness Qualified Code(s): R40.4 - Transient alteration of awareness Plan: abx for UTI, continue to monitor (7) Constipation Status: Acute Qualifiers: Constipation type: slow transit constipation Qualified Code(s): K59.01 - Slow transit constipation Plan: MILK OF MAGNESIA BID GRETEL, COLACE 200MG PO HS GRETEL, CONTINUE TO MONITOR
[2017-04-29] MEDS ORDERED: PHARMACY CONSULT - TPN XX SCH (11:00)
--- NOTE | 2017-04-29 11:19 | PCM.PROG ---
Progress Note - Progress Note for Day of Date: 04/28/17 - Subjective Subjective: IS BEING TREATED FOR A URINARY TRACT INFECTION, ACUTE RENAL FAILURE, DEHYDRATION, AND HYPERKALEMIA. TODAY, SHE IS LYING IN BED WITH EYES CLOSE ON MORNING ROUNDS. SHE AWAKNES AND RESPONDS TO VERBAL STIMULI. SHE CONTINUES WITH COMPLAINTS OF MODERATE EPIGASTRIC PAIN. ON EXAMINATION, HEART IS REGULAR IN RATE AND RHYTHM. BILATERAL LUNGS CONTINUE WITH RHONCHI THROUGHOUT. SHE IS CURRENTLY UTILIZING OXYGEN VIA NASAN CANNULA AT 2L/MIN. ABDOMEN IS ROUND , SOFT, AND CONTINUES WITH MODERATE PAIN TO PALPATION OF EPIGASTRIC AREA. THERE IS A OQUENDO CATHETER NOTED TO BEDSIDE DRAINAGE. NORMAL BOWEL SOUNDS NOTED IN ALL QUADRANTS. SHE CONTINUES WITH GENERALIZED EDEMA TO EXTREMITIES. HER VITALS THIS MORNING ARE 98.1-83-16-100%-98/56. LABS WERE OBTAINED. ABNORMAL LAB VALUES INCLUDE THE FOLLOWING: RBC 3.31, HGB 10.5, HCT 32.4, PLT COUNT 126, SODIUM 147, CHLORIDE 115, BUN 24, GLUCOSE 108, AST 13, ALT 9, TOTAL PROTEIN 5.7, ALBUMIN 2.1. CONSULTED WITH PATIENT THIS MORNING AND A CENTRAL LINE WAS PLACED. SHE DISCUSSED HIALTAL HERNIA WITH PATIENT AND THE RISKS AND BENEFITS OR SURGICAL INTERVENTION. DECISION WAS MADE TO HOLD OFF ON SURGICAL INTERVENTION AT THIS TIME. A EGD MAY BE HELPFUL WHEN PATIENT IS MORE STABLE. SHE CONTINUES TO RECEIVE ROCEPHIN 1GM IV DAILY FOR A URINARY TRACT INFECTION. OTHERWISE, WE WILL CONTINUE WITH CURRENT PLAN OF CARE TODAY. WE PLAN TO FOLLOW UP WITH AM LABS AND CONTINUE TO MONITOR PATIENT. - Past Medical Family Social History Past Med/Fam/Surg Hx: No changes since H&P Allergies: Allergies morphine Allergy (Verified 10/15/16 19:44) - Review of Systems ROS: No change since H&P - Vital Signs and I&O's Vital Signs: Temperature 98.2 F Pulse Rate [Apical] 85 Pulse Rate [Right Brachial] 95 Pulse Rate 18 Respiratory Rate 20 Blood Pressure [Right Arm] 105/59 Blood Pressure [Left Arm] 127/58 Blood Pressure 96/67 O2 Sat by Pulse Oximetry 100 Intake and Output: Intake & Output 04/26/17 04/27/17 04/28/17 04/29/17 11:59 11:59 11:59 11:59 Intake Total 2040 460 2170 1954 Output Total 375 300 390 375 Balance 2412 994 1858 1579 - Physical Exam Oriented: Person Eyes: Normal Ear: Normal Nose: Normal Throat: Normal Respiratory: Right, Left, Generalized, Rhonchi Cardiovascular: Edema : Normal Auscultation: Bowel Sounds: Normal Palpation: Normal Tenderness: Epigastric, Moderate Skin: Normal Musculoskeletal: Normal, Back:Paraspinous Psychiatric: Normal Mood Description: Calm Affect: Normal Speech Pattern: Unclear - Laboratory and Diagnostics Result Diagrams: 04/29/17 05:15 04/29/17 05:15 Labs: 04/22/17 17:20 Blood Blood Culture - Final 04/22/17 17:10 Blood Blood Culture - Final 04/22/17 21:30 Urine,Catheterized Urine Culture - Final Laboratory WBC 8.4 X10^3/uL (3.6-10.0) 04/29/17 05:15 RBC 3.11 X10^6/uL (3.5-5.4) L 04/29/17 05:15 Hgb 10.1 g/dL (12.0-16.0) L 04/29/17 05:15 Hct 30.5 % (36.0-47.0) L 04/29/17 05:15 MCV 98.0 fL (80.0-100.0) 04/29/17 05:15 MCH 32.3 pg (27.0-34.0) 04/29/17 05:15 MCHC 33.0 g/dL (33.0-35.0) 04/29/17 05:15 RDW 14.2 % (11.6-16.5) 04/29/17 05:15 Plt Count 121 X10^3/uL (150.0-450.0) L 04/29/17 05:15 MPV 8.6 fL (7.4-11.0) 04/29/17 05:15 Neut % 71.9 % (42.0-75.0) 04/29/17 05:15 Lymph % 14.0 % (21.0-51.0) L 04/29/17 05:15 [place] % 12.8 % (0.0-13.0) 04/29/17 05:15 Eos % 1.0 % (0.9-2.9) 04/29/17 05:15 Baso % 0.3 % (0.2-1.0) 04/29/17 05:15 Neut # 6.0 x10^3/uL (2.2-4.8) H 04/29/17 05:15 Lymph # 1.2 X10^3/uL (1.3-2.9) L 04/29/17 05:15 [place] # 1.1 x10^3/uL (0.3-0.8) H 04/29/17 05:15 Eos # 0.1 x10^3/uL (0.0-0.2) 04/29/17 05:15 Baso # 0.0 X10^3/uL (0.0-0.1) 04/29/17 05:15 Absolute Nucleated RBC 0.2 /100WBC 04/29/17 05:15 INR Target Range - 04/23/17 05:45 INR 1.14 (0.8-1.3) 04/23/17 05:45 PTT 32.0 SECONDS (22.9-36.5) 04/23/17 05:45 PTT Comment - 04/23/17 05:45 Sodium 148 mmol/L (136-145) H 04/29/17 05:15 Corrected Sodium TNP 04/29/17 05:15 Potassium 4.3 mmol/L (3.5-5.1) 04/29/17 05:15 Chloride 118 mmol/L (98-107) H* 04/29/17 05:15 Carbon Dioxide 22.8 mmol/L (21-32) 04/29/17 05:15 BUN 23 mg/dL (7-18) H 04/29/17 05:15 Creatinine 0.81 mg/dL (0.55-1.02) 04/29/17 05:15 Est GFR (MDRD) Af Amer > 60 (>60) 04/29/17 05:15 Est GFR (MDRD) Non-Af > 60 (>60) 04/29/17 05:15 Glucose 109 mg/dL (65-99) H 04/29/17 05:15 POC Glucose (mg/dL) 73 mg/dL (65-99) 04/22/17 22:55 Lactic Acid 0.9 mmol/L (0.4-2.0) 04/22/17 17:10 Calcium 8.2 mg/dL (8.5-10.1) L 04/29/17 05:15 Corrected Calcium 9.8 mg/dL (8.5-10.1) 04/29/17 05:15 Magnesium 3.3 mg/dL (1.7-2.9) H 04/23/17 05:45 Total Bilirubin 0.30 mg/dL (0.2-1.0) 04/29/17 05:15 AST 14 Units/L (15-37) L 04/29/17 05:15 ALT 12 Units/L (12-78) 04/29/17 05:15 Alkaline Phosphatase 56 Units/L (46-116) 04/29/17 05:15 Creatine Kinase 123 Units/L (26-192) 04/23/17 05:45 CK-MB (CK-2) 2.8 ng/mL (0-4.0) 04/23/17 05:45 CK/CKMB % Calc 2.3 % (<4) 04/23/17 05:45 Troponin I < 0.02 ng/mL (0-1.5) 04/23/17 05:45 C-Reactive Protein 5.80 mg/L (0-3.0) H 04/22/17 17:10 Total Protein 5.5 g/dL (6.4-8.2) L 04/29/17 05:15 Albumin 2.0 g/dL (3.4-5.0) L 04/29/17 05:15 Globulin 3.5 g/dL (2.5-4.5) 04/29/17 05:15 Albumin/Globulin Ratio 0.6 Ratio (1.1-2.1) L 04/29/17 05:15 Prealbumin 11.1 mg/dL (18-35.7) L 04/29/17 05:15 Triglycerides 87 mg/dL (0-150) 04/23/17 05:45 Cholesterol 162 mg/dL (0-200) 04/23/17 05:45 LDL Cholesterol, Calc 114 mg/dL (0-100) H 04/23/17 05:45 HDL Cholesterol 31 mg/dL (40-60) L 04/23/17 05:45 Cholesterol/HDL Ratio 5.2 (0.0-5.0) H 04/23/17 05:45 Specimen Type Catherized urine 04/22/17 21:30 Urine Color Yellow (YELLOW) 04/22/17 21:30 Urine Appearance Hazy (CLEAR) 04/22/17 21:30 Urine pH 5.0 (5.0 - 8.0) 04/22/17 21:30 Ur Specific [place] 1.020 (1.000-1.030) 04/22/17 21:30 Urine Protein 2+ (NEGATIVE) 04/22/17 21:30 Urine Glucose (UA) Negative (NEGATIVE) 04/22/17 21:30 Urine Ketones 2+ (NEGATIVE) 04/22/17 21:30 Urine Occult Blood 1+ (NEGATIVE) 04/22/17 21:30 Urine Nitrite Negative (NEGATIVE) 04/22/17 21:30 Urine Bilirubin 3+ (NEGATIVE) 04/22/17 21:30 Urine Urobilinogen Normal (NORMAL) 04/22/17 21:30 Ur Leukocyte Esterase 2+ (NEGATIVE) 04/22/17 21:30 Urine RBC 2-6 /HPF (NEGATIVE) 04/22/17 21:30 Urine WBC 20-30 /HPF (NEGATIVE) 04/22/17 21:30 Ur Squamous Epith Cells Rare /HPF (NEGATIVE) 04/22/17 21:30 Urine Bacteria 1+ /HPF (NEGATIVE) 04/22/17 21:30 Ur Culture Indicated? Yes/culture set up 04/22/17 21:30 - Plan (1) UTI (urinary tract infection) Status: Inactive Qualifiers: Urinary tract infection type: acute cystitis Hematuria presence: without hematuria Qualified Code(s): N30.00 - Acute cystitis without hematuria Plan: rocephin 1gm iv daily, normal saline at 100ml/hr, continue to monitor (2) Abdominal pain Status: Acute Qualifiers: Abdominal location: epigastric Qualified Code(s): R10.13 - Epigastric pain Plan: PEPCID, PROTONIX, DILAUDID, CONTINUE TO MONITOR (3) Acute renal failure Status: Acute Qualifiers: Acute renal failure type: unspecified Qualified Code(s): N17.9 - Acute kidney failure, unspecified Plan: normal saline at 100ml/hr, continue to monitor (4) Hyperkalemia Status: Acute (5) Generalized weakness Status: Acute Plan: TPN, ALBUMIN, CONTINUE TO MONITOR (6) Altered mental state Status: Acute Qualifiers: Altered mental status type: transient alteration of awareness Qualified Code(s): R40.4 - Transient alteration of awareness Plan: abx for UTI, continue to monitor (7) Constipation Status: Acute Qualifiers: Constipation type: slow transit constipation Qualified Code(s): K59.01 - Slow transit constipation Plan: MILK OF MAGNESIA BID GRETEL, COLACE 200MG PO HS GRETEL, CONTINUE TO MONITOR
[2017-04-29] MEDS: CLINIMIX 5 %/15 % 1,000 ML with MVI INJ (ADULT) 10 ML, TRACE ELEMENTS INJ 10 ML, DRUG F... IV SCH ×4 (12:22)
[2017-04-29] MEDS: ALBUMIN HUMAN 25%- 100ML 100 ML IV SCH (12:23)
[2017-04-29] MEDS: COLACE CAP 100 MG PO SCH (21:07)
[2017-04-29] MEDS: SNACK - Diabetic Appropriate PO SCH (21:09)
[2017-04-30] MEDS: CLINIMIX 5 %/15 % 1,000 ML with MVI INJ (ADULT) 10 ML, TRACE ELEMENTS INJ 10 ML, DRUG F... IV SCH ×8 (00:30→21:14)
[2017-04-30] MEDS: DILAUDID INJ IVP PRN ×4 (02:43→20:22)
[2017-04-30] MEDS: NS 1000 ML 1,000 ML IV SCH ×3 (05:26→21:21)
[2017-04-30 05:37] LABS: BASOPHILS # (AUTO) 0.1 X10^3/uL (0.0-0.1); BASOPHILS % (AUTO) 0.5 % (0.2-1.0); EOSINOPHILS # (AUTO) 0.1 x10^3/uL (0.0-0.2); EOSINOPHILS % (AUTO) 1.4 % (0.9-2.9); HEMATOCRIT 33.5 % (36.0-47.0); HEMOGLOBIN 10.8 g/dL (12.0-16.0); LYMPHOCYTES # (AUTO) 1.1 X10^3/uL (1.3-2.9); LYMPHOCYTES % (AUTO) 11.2 % (21.0-51.0); MEAN CORPUSCULAR HGB CONC 32.3 g/dL (33.0-35.0); MEAN CORPUSCULAR VOLUME 99.2 fL (80.0-100.0); MEAN PLATELET VOLUME 8.7 fL (7.4-11.0); MONOCYTES # (AUTO) 1.5 x10^3/uL (0.3-0.8); MONOCYTES % (AUTO) 14.9 % (0.0-13.0); PLATELET COUNT 117 X10^3/uL (150.0-450.0); RED BLOOD COUNT 3.37 X10^6/uL (3.5-5.4); RED CELL DISTRIBUTION WIDTH 14.2 % (11.6-16.5); WHITE BLOOD COUNT 9.7 X10^3/uL (3.6-10.0)
[2017-04-30 05:45] LABS: ALANINE AMINOTRANSFERASE 13 Units/L (12-78); ALBUMIN 2.5 g/dL (3.4-5.0); ALKALINE PHOSPHATASE 55 Units/L (46-116); ASPARTATE AMINO TRANSFERASE 12 Units/L (15-37); BLOOD UREA NITROGEN 30 mg/dL (7-18); CALCIUM 8.5 mg/dL (8.5-10.1); COR CA(FOR HYPOALB) 9.7 mg/dL (8.5-10.1); COR NA(FOR HYPERGLY) 149 mmol/L (136-145); CREATININE 0.84 mg/dL (0.55-1.02); SODIUM 147 mmol/L (136-145); TOTAL PROTEIN 5.9 g/dL (6.4-8.2); eGFR BLACK RACES > 60 (>60); eGFR NON BLACK RACES > 60 (>60)
[2017-04-30 06:14] LABS: CHLORIDE 117 mmol/L (98-107)
[2017-04-30] MEDS: PROTONIX INJ 40 MG VIAL IVP SCH ×2 (10:46→21:20)
[2017-04-30] MEDS: ALBUMIN HUMAN 25%- 100ML 100 ML IV SCH ×3 (10:46→21:18)
[2017-04-30] MEDS: ROCEPHIN VIAL 1 GM 1 GM in NS 100 ML IV + SPIKE MINIBAG* 100 ML IV SCH (10:47)
[2017-04-30] MEDS: PEPCID 20 MG IV PREMIX* 20 MG/50 ML BAG IV SCH ×2 (10:47→21:20)
[2017-04-30] MEDS: REGLAN TAB 10 MG PO SCH ×4 (11:00→21:20)
[2017-04-30] MEDS: MILK OF MAGNESIA PO SCH ×2 (11:00→21:22)
[2017-04-30] MEDS: TOPROL XL PO SCH ×2 (11:00→21:20)
[2017-04-30] MEDS: NYSTATIN POWDER TOP SCH ×2 (11:01→21:20)
[2017-04-30] MEDS: SNACK - Diabetic Appropriate PO SCH (21:15)
[2017-04-30] MEDS: COLACE CAP 100 MG PO SCH (21:21)
[2017-05-01] MEDS: CLINIMIX 5 %/15 % 1,000 ML with MVI INJ (ADULT) 10 ML, TRACE ELEMENTS INJ 10 ML, DRUG F... IV SCH ×8 (00:29→17:26)
[2017-05-01] MEDS: DILAUDID INJ IVP PRN (03:14)
[2017-05-01 05:35] LABS: BASOPHILS % (AUTO) 0.3 % (0.2-1.0); EOSINOPHILS % (AUTO) 0.1 % (0.9-2.9); HEMATOCRIT 33.2 % (36.0-47.0); HEMOGLOBIN 10.8 g/dL (12.0-16.0); LYMPHOCYTES # (AUTO) 0.8 X10^3/uL (1.3-2.9); LYMPHOCYTES % (AUTO) 7.5 % (21.0-51.0); MEAN CORPUSCULAR HEMOGLOBIN 32.1 pg (27.0-34.0); MEAN CORPUSCULAR HGB CONC 32.4 g/dL (33.0-35.0); MEAN PLATELET VOLUME 8.9 fL (7.4-11.0); MONOCYTES # (AUTO) 1.5 x10^3/uL (0.3-0.8); MONOCYTES % (AUTO) 13.5 % (0.0-13.0); NEUTROPHILS # (AUTO) 8.5 x10^3/uL (2.2-4.8); NEUTROPHILS % (AUTO) 78.6 % (42.0-75.0); PLATELET COUNT 111 X10^3/uL (150.0-450.0); RED BLOOD COUNT 3.36 X10^6/uL (3.5-5.4); RED CELL DISTRIBUTION WIDTH 14.6 % (11.6-16.5); WHITE BLOOD COUNT 10.9 X10^3/uL (3.6-10.0)
[2017-05-01 05:52] LABS: ALANINE AMINOTRANSFERASE 20 Units/L (12-78); ALBUMIN 2.9 g/dL (3.4-5.0); ALKALINE PHOSPHATASE 60 Units/L (46-116); ASPARTATE AMINO TRANSFERASE 24 Units/L (15-37); BLOOD UREA NITROGEN 33 mg/dL (7-18); CALCIUM 8.5 mg/dL (8.5-10.1); CARBON DIOXIDE 22.2 mmol/L (21-32); COR CA(FOR HYPOALB) 9.4 mg/dL (8.5-10.1); COR NA(FOR HYPERGLY) 150 mmol/L (136-145); SODIUM 148 mmol/L (136-145); TOTAL PROTEIN 6.3 g/dL (6.4-8.2); eGFR BLACK RACES > 60 (>60); eGFR NON BLACK RACES > 60 (>60)
[2017-05-01 06:11] LABS: METAMYELOCYTES % 1
[2017-05-01 06:12] LABS: PLATELET MORPHOLOGY COMMENT NORMAL (NORMAL)
[2017-05-01 06:18] LABS: CHLORIDE 117 mmol/L (98-107)
[2017-05-01] MEDS: NS 1000 ML 1,000 ML IV SCH ×2 (06:22→17:27)
[2017-05-01] MEDS ORDERED: LOPRESSOR INJ 5 MG AMP IVP PRN (07:47)
[2017-05-01] MEDS: PROTONIX INJ 40 MG VIAL IVP SCH (09:20)
[2017-05-01] MEDS: ROCEPHIN VIAL 1 GM 1 GM in NS 100 ML IV + SPIKE MINIBAG* 100 ML IV SCH (09:20)
[2017-05-01] MEDS: PEPCID 20 MG IV PREMIX* 20 MG/50 ML BAG IV SCH (09:21)
[2017-05-01] MEDS: ALBUMIN HUMAN 25%- 100ML 100 ML IV SCH ×2 (09:21→16:45)
[2017-05-01] MEDS: NYSTATIN POWDER TOP SCH (09:22)
[2017-05-01] MEDS ORDERED: NS 500 ML IV 500 ML IV ONE ×2 (15:31→16:02)
[2017-05-01] MEDS ORDERED: DOPAMINE IV PREMIX 400 MG/250 ML 400 MG/250 ML BAG IV PRN (16:42)
[2017-05-01 17:19] VITALS: BP 67/50
[2017-05-01] MEDS: REGLAN TAB 10 MG PO SCH ×2 (17:26→17:27)
[2017-05-01] MEDS: MILK OF MAGNESIA PO SCH (17:26)
[2017-05-01] MEDS: TOPROL XL PO SCH (17:27)
== END 2017-05-01 17:00 | disposition expired | DRG 689 ==
LOC: ER 15:52 → ICU 20:03
PROVIDERS: ADMIT Internal Medicine; ATTEND Internal Medicine
PROC: 05H633Z Insertion of Infusion Device into Left Subclavian Vein, Percutaneous Approach (ICD-10-PCS; principal; 2017-04-28)
DX: N30.00 Acute cystitis without hematuria (principal); I46.9 Cardiac arrest, cause unspecified; L89.153 Pressure ulcer of sacral region, stage 3; N17.8 Other acute kidney failure; K25.3 Acute gastric ulcer without hemorrhage or perforation; K44.0 Diaphragmatic hernia with obstruction, without gangrene; E86.0 Dehydration; E87.5 Hyperkalemia; R40.4 Transient alteration of awareness; K21.9 Gastro-esophageal reflux disease without esophagitis; I12.9 Hypertensive chronic kidney disease with stage 1 through stage 4 chronic kidney disease, or unspecified chronic kidney disease; R94.31 Abnormal electrocardiogram [ECG] [EKG]; R53.1 Weakness; R63.0 Anorexia; R06.02 Shortness of breath; R60.1 Generalized edema; R07.89 Other chest pain; M54.89 Other dorsalgia; R10.13 Epigastric pain; K59.01 Slow transit constipation; R10.84 Generalized abdominal pain; I87.2 Venous insufficiency (chronic) (peripheral); Z66 Do not resuscitate
CPT/HCPCS: 36415; 36556; 71045; 71250; 74018; 74176; 80053; 80061; 81001; 82550; 82553; 82947; 83605; 83735; 84132; 84134; 84484; 85025; 85610; 85730; 86140; 87040; 87086; 93005; 93010; 96365; 99285; A4222; B5200; C9113; P9047; S0028; J0696; J1170; J1265; J1815; J2405; J3260; J3490